=== PATIENT | male | born 1995 | race Asian ===

== ENCOUNTER 2020-07-23 10:20 | Emergency (ER) | payer OTHER, SELFPAY ==
[2020-07-23 10:26] VITALS: BP 105/70; PULSE 66; RESP 14; TEMP 36.6; O2SAT 97; BMI 15.2
--- NOTE | 2020-07-23 11:13 | PC.NURSE ---
pt had a vagal episode while vomiting earlier. he was medicated with Zofran SL
[2020-07-23 13:39] LABS: Basophils Absolute Auto 0.1 X10*3/uL (0.0-0.2); Basophils Percent Auto 0.4 % (0-2); Eosinophils Absolute Auto 0.2 X10*3/uL (0.0-0.4); Eosinophils Percent Auto 1.1 % (0-4); Hematocrit 48.5 % (42-52); Hemoglobin 15.7 g/dl (14.0-18.0); Imm Gran Abs Auto 0.07 X10*3/uL (0.00-0.03); Imm Gran Pct Auto 0.4 % (0.0-0.4); Lymphocytes Absolute Auto 0.8 X10*3/uL (1.2-4.9); Lymphocytes Percent Auto 4.3 % (20-40); MANUAL DIFF FLAG SCAN; Mean Corpuscular HGB Conc 32.4 g/dl (31.0-36.0); Mean Corpuscular Volume 89.6 fL (80-98); Monocytes Absolute Auto 0.6 X10*3/uL (0.1-1.2); Monocytes Percent Auto 3.2 % (2-11); Neutrophils Absolute Auto 17.8 X10*3/uL (2.0-8.3); Neutrophils Percent Auto 90.6 % (45-73); Platelet Count 301 X10*3/uL (160-400); Red Blood Count 5.41 X10*6/uL (4.60-5.80); Red Cell Distribution Width 12.1 % (11.0-16.0); SCAN SMEAR FLAG 1; White Blood Count 19.6 X10*3/uL (4.8-10.8)
[2020-07-23 13:44] LABS: Mean Platelet Volume 10.4 fL (9.4-12.4)
--- NOTE | 2020-07-23 14:03 | ED.NAVMDI ---
HPI - Nausea/Vomiting/Diarrhea General Chief complaint: Nausea/Vomiting/Diarrhea Stated complaint: VOMITING Time Seen by Provider: 07/23/20 13:53 Source: patient Mode of arrival: ambulatory Limitations: no limitations History of Present Illness HPI Narrative: Patient presents to ED for mid abdominal pain that began this morning with profuse episodes of vomiting. Patient states he has had this problem many times before in the past. Patient states he has been to many library technical assistant and cannot find a cause. Patient was informed his history of gastritis. Patient denies any history of marijuana use. Patient denies any dysuria, hematuria, flank pain, fever, or chills. MD elicited complaint: nausea, vomiting and abdominal pain Associated nausea: Yes Related Data Home Medications Medication Instructions Recorded Confirmed mirtazapine 15 mg tablet 15 mg PO DAILY 05/09/20 05/09/20 Previous Rx's Medication Instructions Recorded mirtazapine 15 mg tablet 15 mg PO BEDTIME 7 Days #7 tab 05/09/20 famotidine [Pepcid] 20 mg PO BID #20 tab 07/23/20 Allergies Allergy/AdvReac Type Severity Reaction Status Date / Time No Known Allergies Allergy Unverified 03/07/20 16:43 [No Known Allergies*] sertraline [Zoloft] AdvReac Unknown RESTLESSNES Verified 10/31/19 00:00 S Review of Systems Review of Systems: Yes all other systems are reviewed and are negative Constitutional: Constitutional: Reports as per HPI and Reports no additional constitutional complaints Eyes: Eyes: Reports as per HPI and Reports no additional eye complaints ENT: Reports system reviewed and no additional complaints, except as documented and Reports as per HPI Cardiovascular: Cardiovascular: Reports as per HPI and Reports no additional cardiovascular complaints Respiratory: Respiratory: Reports as per HPI and Reports no additional respiratory complaints Gastrointestinal: Gastrointestinal: Reports as per HPI, Reports no additional gastrointestinal complaints, Reports abdominal pain, Reports nausea and Reports vomiting Musculoskeletal: Musculoskeletal: Reports no additional musculoskeletal complaints and Reports as per HPI Neurologic: Reports system reviewed and no additional complaints, except as documented and Reports as per HPI Psychiatric: Psychiatric: Reports as per HPI [facility] Social History Social History Alcohol intake: never Smoking Status: Never smoker Use of substances other than those prescribed or required for medical reasons: No Advance Directives: Yes Advance Directives Information Provided: Yes Advance Directives on File: No Physical Exam Vital Signs: Vital Signs: Last Vital Signs Temp 98 F 07/23/20 16:00 Pulse 70 07/23/20 16:55 Resp 14 07/23/20 16:00 BP 107/65 07/23/20 16:55 Pulse Ox 100 07/23/20 16:00 Body Mass Index 15.2 Const: General: cooperative, healthy appearing, comfortable, no acute distress, well developed, alert, awake and Physically active Orientation/consciousness: patient oriented x3 HENMT: Head: Yes normal to inspection, Yes No palpable skull fracture present, Yes normocephalic, Yes atraumatic and Yes abrasion Eyes: General: appearance normal, both eyes and all related structures Neck: Neck: Yes normal visual inspection, Yes full ROM, Yes no lymphadenopathy, Yes no meningeal signs, Yes trachea midline, Yes supple and No tender Chest: Chest palpation & inspection: normal inspection of the chest and normal palpation of entire chest wall Resp: Effort & Inspection: normal respiratory effort and able to speak in complete sentences Auscultation: clear to auscultation bilaterally Cardio: Jugular venous distension: no JVD Heart sounds: S1 normal heart sound present and S2 normal heart sound present GI: Inspection: Yes normal to inspection Palpation (GI): Soft to palpation, not firm, Tenderness to palpation present (GI) (Mid gastric) in the epigastrum; not in the LLQ, not in the RLQ, not in the LUQ, not in the RUQ, not at McBurney's point, not periumbilically, not suprapubicly, Guzman's sign negative, obturator sign negative, psoas sign negative, with no rebound tenderness and Rovsing's sign negative, no guarding and not rigid : General: No CVA tenderness and Yes no CVA tenderness Back/Spine/Pelvis: Back: no CVA tenderness, No CVA tenderness and No back tenderness Skin: General skin exam: no rashes or lesions noted and elasticity normal Neuro: General: patient oriented x3, no meningeal signs and CN's II-XI intact bilaterally Cranial nerves: Yes CN's II-XII intact bilaterally Extrem: General: Yes normal to inspection and Yes full ROM Psych: Appearance: grossly normal, well kempt and not disheveled Course Course Course Narrative: [place] [id number]. Rest of labs are still pending. Will give Benadryl, Pepcid, Zofran, and fluids. Patient will be sent for abdominal CT scan was kidney function returns. Reevaluation(s) Reevaluation #1: Patient states abdominal pain resolved after recieving IV medication. CT scan came back normal with only exception of not being able to see the appendix. Abdomen re-examined and soft, benign, and non-tender. negative for any guzman sign, mcburney sign, rebound tenderness, rovigsn sign, psoas sign, or obturator sign. patient states this is chronic and has been seen by [facility] gastroentertologist. patiaent informed and educated on appendicitis. Patient informed that if patient worsens, or re-locate to right lower quadrant that he should return to the ED for early appendicitis. UTox positive for Benzos and opiates Time: 18:09 MDM - Nausea/Vomiting/Diarrhea MDM Narrative Medical decision making narrative: Abdominal pIN Lab Data Result diagrams: 07/23/20 13:10 07/23/20 13:10 Labs: Lab Results 07/23/20 07/23/20 07/23/20 Range/Units 13:10 13:10 16:54 WBC 19.6 H (4.8-10.8) X10*3/uL RBC 5.41 (4.60-5.80) X10*6/uL Hgb 15.7 (14.0-18.0) g/dl Hct 48.5 (42-52) % MCV 89.6 (80-98) fL MCH 29.0 (27.0-33.0) pg MCHC 32.4 (31.0-36.0) g/dl RDW 12.1 (11.0-16.0) % Plt Count 301 (160-400) X10*3/uL MPV 10.4 (9.4-12.4) fL Immature Gran % (Auto) 0.4 (0.0-0.4) % Neut % (Auto) 90.6 H (45-73) % Lymph % (Auto) 4.3 L (20-40) % [place] % (Auto) 3.2 (2-11) % Eos % (Auto) 1.1 (0-4) % Baso % (Auto) 0.4 (0-2) % Lymph # (Auto) 0.8 L (1.2-4.9) X10*3/uL [place] # (Auto) 0.6 (0.1-1.2) X10*3/uL Eos # (Auto) 0.2 (0.0-0.4) X10*3/uL Baso # (Auto) 0.1 (0.0-0.2) X10*3/uL Abs Immat Gran (auto) 0.07 H (0.00-0.03) X10*3/uL Absolute Neuts (auto) 17.8 H (2.0-8.3) X10*3/uL Absolute Nucleated RBC 0.000 (0.0-0.012) X10*3/uL Nucleated RBC % (auto) 0.0 (0.0-0.2) /100WBC Smear Tech's Comments VERIFIED Sodium 139 (135-145) mmol/L Potassium 4.4 (3.3-5.1) mmol/L Chloride 103 (96-108) mmol/L Carbon Dioxide 24 (22-29) mmol/L Anion Gap 16 (12-20) BUN 16 (9-16) mg/dL Creatinine 0.91 (0.5-1.4) mg/dL Estim Creat Clear Calc 79.6 Estimated GFR > 60 Random Glucose 151 H (60-115) mg/dL Calcium 9.8 (8.4-10.2) mg/dL Total Bilirubin 0.7 (0.0-1.0) mg/dL Direct Bilirubin 0.3 (0.0-0.5) mg/dL AST 24 (5-37) U/L ALT 15 (0-40) U/L Alkaline Phosphatase 98 (39-117) U/L Total Protein 7.8 (6.5-8.0) g/dL Albumin 4.5 (3.5-5.0) g/dL Lipase 34 (8-78) U/L Urine Color Urine Appearance Urine pH (5.0-8.0) Ur Specific [place] (1.005-1.025) Urine Protein (NEG-TRACE) MG/DL Urine Glucose (UA) (NEG) MG/DL Urine Ketones (NEG) MG/DL Urine Blood (NEG) Urine Nitrite (NEG) Ur Leukocyte Esterase (NEG) Urine Opiates Screen POSITIVE H (Not Detect) Ur Barbiturates Screen Not Detected (Not Detect) Ur Phencyclidine Scrn Not Detected (Not Detect) Ur Amphetamines Screen Not Detected (Not Detect) U Benzodiazepines Scrn POSITIVE H (Not Detect) Urine Cocaine Screen Not Detected (Not Detect) U Marijuana (THC) Screen Not Detected (Not Detect) 07/23/20 Range/Units 16:54 WBC (4.8-10.8) X10*3/uL RBC (4.60-5.80) X10*6/uL Hgb (14.0-18.0) g/dl Hct (42-52) % MCV (80-98) fL MCH (27.0-33.0) pg MCHC (31.0-36.0) g/dl RDW (11.0-16.0) % Plt Count (160-400) X10*3/uL MPV (9.4-12.4) fL Immature Gran % (Auto) (0.0-0.4) % Neut % (Auto) (45-73) % Lymph % (Auto) (20-40) % [place] % (Auto) (2-11) % Eos % (Auto) (0-4) % Baso % (Auto) (0-2) % Lymph # (Auto) (1.2-4.9) X10*3/uL [place] # (Auto) (0.1-1.2) X10*3/uL Eos # (Auto) (0.0-0.4) X10*3/uL Baso # (Auto) (0.0-0.2) X10*3/uL Abs Immat Gran (auto) (0.00-0.03) X10*3/uL Absolute Neuts (auto) (2.0-8.3) X10*3/uL Absolute Nucleated RBC (0.0-0.012) X10*3/uL Nucleated RBC % (auto) (0.0-0.2) /100WBC Smear Tech's Comments Sodium (135-145) mmol/L Potassium (3.3-5.1) mmol/L Chloride (96-108) mmol/L Carbon Dioxide (22-29) mmol/L Anion Gap (12-20) BUN (9-16) mg/dL Creatinine (0.5-1.4) mg/dL Estim Creat Clear Calc Estimated GFR Random Glucose (60-115) mg/dL Calcium (8.4-10.2) mg/dL Total Bilirubin (0.0-1.0) mg/dL Direct Bilirubin (0.0-0.5) mg/dL AST (5-37) U/L ALT (0-40) U/L Alkaline Phosphatase (39-117) U/L Total Protein (6.5-8.0) g/dL Albumin (3.5-5.0) g/dL Lipase (8-78) U/L Urine Color YELLOW Urine Appearance CLEAR Urine pH 5.5 (5.0-8.0) Ur Specific [place] <= 1.005 (1.005-1.025) Urine Protein NEG (NEG-TRACE) MG/DL Urine Glucose (UA) NEG (NEG) MG/DL Urine Ketones 15 (NEG) MG/DL Urine Blood NEG (NEG) Urine Nitrite NEG (NEG) Ur Leukocyte Esterase NEG (NEG) Urine Opiates Screen (Not Detect) Ur Barbiturates Screen (Not Detect) Ur Phencyclidine Scrn (Not Detect) Ur Amphetamines Screen (Not Detect) U Benzodiazepines Scrn (Not Detect) Urine Cocaine Screen (Not Detect) U Marijuana (THC) Screen (Not Detect) Discharge Plan Discharge Clinical Impression: Abdominal pain, GERD (gastroesophageal reflux disease) Patient Disposition: Home, Self-Care Instructions: Gastroesophageal Reflux Disease (ED), Abdominal Pain (ED) Additional Instructions: Return to the ED immediatley for worsening abdominal pain, RLQ pain, nausea, emesis, fever, chills, flank pain, dysuria, hematuria, weakness, or any other concerning symptoms. Prescriptions: New famotidine [Pepcid] 20 mg tablet 20 mg PO BID Qty: 20 RF: 0 No Action mirtazapine [Remeron] 15 mg tablet 15 mg PO DAILY RF: 0 mirtazapine 15 mg tablet 15 mg PO BEDTIME 7 Days Qty: 7 RF: 0 Referrals: Dhaval Blake FNP-NOLAN [Primary Care Provider] - 2 days (CHronic abdominal pain. GERD) Tip Martines [Physician] - 2 days (Chronic abdominal pain exacerbation. May need endoscopy.) Interventions: ED Discharge Assessment Last Done: 07/23/20 18:16 Discharge Date/Time: 07/23/20 18:17 Print Language: Malaysian
[2020-07-23 14:05] LABS: Anion Gap 16 (12-20); Blood Urea Nitrogen 16 mg/dL (9-16); Calcium 9.8 mg/dL (8.4-10.2); Carbon Dioxide 24 mmol/L (22-29); Chloride 103 mmol/L (96-108); Creatinine Clr Calc Pharmacy 79.6; Estimated Glomerular Filt Rate > 60; Glucose Random 151 mg/dL (60-115); Potassium 4.4 mmol/L (3.3-5.1); Sodium 139 mmol/L (135-145)
--- NOTE | 2020-07-23 14:14 | CT_ITS ---
EXAMINATION: CT ABDOMEN AND PELVIS WITH CONTRAST CLINICAL INFORMATION: Mid abdominal pain. COMPARISON: None TECHNIQUE: Multidetector volumetric images were obtained from the superior aspect of the liver through the pubic symphysis following administration 85 mL of Omnipaque 350 intravenous contrast. Sagittal and coronal reformatted images were obtained on the technologist's workstation. Oral contrast: No This CT examination was performed using dose optimization techniques as appropriate, variously including the following: *Automated exposure control *Adjustment of mA and/or kV according to patient size (this includes techniques or standardized protocols for targeted exams where dose is matched to indication/reason for exam; i.e. extremities or head) *Use of iterative reconstruction technique DLP: 222 mGy-cm FINDINGS: LUNG BASES: There is minimal patchy opacity in lingula. The lung bases are clear. The heart size is normal. LIVER, GALLBLADDER, AND BILIARY TREE: The liver is normal in size, shape, and attenuation. No focal hepatic lesion or biliary ductal dilatation is present. The gallbladder is unremarkable with no evidence of radiopaque gallstones, gallbladder wall thickening, or obvious pericholecystic inflammatory changes. PANCREAS: Unremarkable. SPLEEN: Unremarkable. ADRENAL GLANDS: Unremarkable. KIDNEYS AND URETERS: The kidneys are normal in size, shape, and attenuation. No hydronephrosis, hydroureter, or calculi seen. No perinephric stranding. BLADDER: Unremarkable. GASTROINTESTINAL TRACT: There is scattered stool and gas seen throughout the colon without significant distention. The small bowel loops are normal caliber. Appendix is not visualized. There is no obstruction or inflammatory process seen. The stomach is nondistended. ABDOMINAL WALL: No significant hernia is appreciated. LYMPH NODES: Normal. VASCULAR: Unremarkable. PELVIC VISCERA: Unremarkable. OSSEOUS STRUCTURES: Unremarkable. CT/CT abdomen pelvis w con IMPRESSION: No acute intra-abdominal process seen. Appendix is not visualized. No inflammatory process, free air or free fluid seen in the abdomen.
[2020-07-23 14:17] LABS: Alanine Aminotransferase 15 U/L (0-40); Albumin Level 4.5 g/dL (3.5-5.0); Alkaline Phosphatase 98 U/L (39-117); Aspartate Amino Transferase 24 U/L (5-37); Bilirubin Direct 0.3 mg/dL (0.0-0.5); Bilirubin Total 0.7 mg/dL (0.0-1.0); Lipase 34 U/L (8-78); SLIDE REVIEW VERIFIED; Total Protein 7.8 g/dL (6.5-8.0)
[2020-07-23] MEDS: Famotidine/PF 20 MG/2 ML VIAL IVPUSH (14:22)
[2020-07-23] MEDS: diphenhydrAMINE HCL 50 MG/ML VIAL IVPUSH (14:22)
[2020-07-23] MEDS: ondansetron HCL 4 MG/2 ML VIAL IVPUSH (14:22)
[2020-07-23] MEDS: 0.9 % Sodium Chloride 1,000 ML 999 ML IV (14:22)
[2020-07-23 14:50] VITALS: BP 102/66; PULSE 62; RESP 18; O2SAT 99
[2020-07-23 16:00] VITALS: BP 102/52; PULSE 66; RESP 14; TEMP 36.6; O2SAT 100
[2020-07-23 16:55] VITALS: BP 107/65; PULSE 70
[2020-07-23 17:24] LABS: Glucose Urine UA NEG (NEG); Leukocyte Esterase Urine NEG (NEG); Nitrite Urine NEG (NEG); PH 5.5 (5.0-8.0); Specific Gravity - Urine <= 1.005 (1.005-1.025); Urine Blood NEG (NEG); Urine Ketones 15 MG/DL (NEG); Urine Protein NEG (NEG-TRACE)
[2020-07-23 17:26] LABS: Amphetamine Screen Urine Not Detected (Not Detect); Barbiturates, Urine Not Detected (Not Detect); Benzodiazepines Screen Urine POSITIVE (Not Detect); Cannabinoid Screen Urine Not Detected (Not Detect); Cocaine Screen Urine Not Detected (Not Detect); Opiate Screen Urine POSITIVE (Not Detect); Phencyclidine Screen Urine Not Detected (Not Detect)
[2020-07-23 17:39] LABS: Appearance Urine CLEAR; Color Urine YELLOW
== END 2020-07-23 18:17 | disposition home or self-care (01) ==
PROVIDERS: Physician Assistant; Emergency Provider Emergency Medicine; PCP Nurse Practitioner Family
DX: K21.9 Gastro-esophageal reflux disease without esophagitis (principal); R10.9 Unspecified abdominal pain
CPT/HCPCS: 36415; 74177; 80048; 80076; 80307; 81003; 83690; 85025; 96361; 96374; 96375; 99284; J1200; J2405

== ENCOUNTER 2020-09-05 20:21 | Emergency (ER) | payer MEDICARE, MEDICAID, SELFPAY ==
[2020-09-05 20:33] VITALS: BP 106/72; PULSE 91; RESP 16; TEMP 36.8; O2SAT 98; BMI 16.4
[2020-09-05 21:05] LABS: MANUAL DIFF FLAG NO
[2020-09-05 21:07] LABS: Basophils Percent Auto 0.3 % (0-2); Eosinophils Absolute Auto 0.4 X10*3/uL (0.0-0.4); Eosinophils Percent Auto 5.4 % (0-4); Hematocrit 39.7 % (42-52); Hemoglobin 12.7 g/dl (14.0-18.0); Imm Gran Abs Auto 0.01 X10*3/uL (0.00-0.03); Imm Gran Pct Auto 0.1 % (0.0-0.4); Lymphocytes Absolute Auto 1.4 X10*3/uL (1.2-4.9); Lymphocytes Percent Auto 20.6 % (20-40); Mean Corpuscular Hemoglobin 28.8 pg (27.0-33.0); Mean Platelet Volume 9.8 fL (9.4-12.4); Monocytes Absolute Auto 0.4 X10*3/uL (0.1-1.2); Monocytes Percent Auto 6.1 % (2-11); Neutrophils Absolute Auto 4.5 X10*3/uL (2.0-8.3); Neutrophils Percent Auto 67.5 % (45-73); Platelet Count 234 X10*3/uL (160-400); Red Blood Count 4.41 X10*6/uL (4.60-5.80); Red Cell Distribution Width 12.3 % (11.0-16.0); White Blood Count 6.7 X10*3/uL (4.8-10.8)
[2020-09-05 21:33] LABS: Alanine Aminotransferase 7 U/L (0-40); Alkaline Phosphatase 74 U/L (39-117); Anion Gap 12 (12-20); Aspartate Amino Transferase 11 U/L (5-37); Bilirubin Direct 0.2 mg/dL (0.0-0.5); Bilirubin Total 0.5 mg/dL (0.0-1.0); Blood Urea Nitrogen 13 mg/dL (9-16); Calcium 8.3 mg/dL (8.4-10.2); Carbon Dioxide 25 mmol/L (22-29); Chloride 107 mmol/L (96-108); Creatinine Clr Calc Pharmacy 85.4; Estimated Glomerular Filt Rate > 60; Glucose Random 104 mg/dL (60-115); Potassium 3.5 mmol/L (3.3-5.1); Sodium 140 mmol/L (135-145); Total Protein 6.7 g/dL (6.5-8.0)
[2020-09-05 21:47] LABS: Lipase 89 U/L (8-78)
--- NOTE | 2020-09-05 22:52 | ED.DIZZY ---
HPI - Dizziness General Chief Complaint: Dizziness Stated Complaint: dehydration Time Seen by Provider: 09/05/20 22:36 History of Present Illness HPI Narrative: Patient is a 25-year-old male presents today with having generalized malaise weakness. Patient has been having gastric motility issue for the last 10 years. No coughing or congestion or upper respiratory symptoms. Positive decreased p.o. intake. The patient drinks less than 8 last he feels weak. He presented back to the emergency department. He also has a history of restless leg. Patient from home otherwise is compliant with his medication. It had multiple workups in the past for this. Has been seen by GI specialist for the same thing. Patient states usually after IV fluid he feels better Related Data Home Medications Medication Instructions Recorded Confirmed mirtazapine 15 mg tablet 15 mg PO DAILY 05/09/20 05/09/20 Previous Rx's Medication Instructions Recorded mirtazapine 15 mg tablet 15 mg PO BEDTIME 7 Days #7 tab 05/09/20 famotidine [Pepcid] 20 mg PO BID #20 tab 07/23/20 albuterol sulfate 90 mcg/actuation 2 puff INHALATION Q6H PRN 30 Days 07/25/20 aerosol inhaler #8.5 g fluoxetine 20 mg capsule 20 mg PO DAILY #30 cap 08/07/20 Allergies Allergy/AdvReac Type Severity Reaction Status Date / Time No Known Allergies Allergy Verified 09/05/20 20:33 [No Known Allergies*] sertraline [Zoloft] AdvReac Unknown RESTLESSNES Verified 10/31/19 00:00 S Review of Systems Review of Systems: Constitutional: No Weight loss, No Fever, No Chills, No Night Sweats, positive Fatigue, No Malaise ENT/Mouth: No Hearing loss, No Ear Pain, No Nasal Congestion, No Sinus Pain, No Hoarseness, No sore throat, No Rhinorrhea, No Swallowing Difficulty Eyes: No Eye Pain, No Swelling, No Redness, No Foreign Body, No Discharge, No Vision Changes Cardiovascular: No Chest Pain, No SOB, No Dyspnea on Exertion, No Orthopnea, No Edema, No Palpitations Respiratory: No Cough, No Sputum, No Wheezing, No Smoke Exposure, No Dyspnea Gastrointestinal: No Nausea, No Vomiting, No Diarrhea, No Constipation, No abdominal Pain, No Hematochezia, No Melena Genitourinary: no irregular bleeding, No Dysuria, No Urinary Frequency, No Hematuria, No Urinary Incontinence, No Urgency, No Flank Pain, No Urinary Flow Changes, No Hesitancy Musculoskeletal: No joint pain, No Myalgias, No Joint Swelling Skin: No Skin Lesions, No rash Neuro: Positive Weakness, No Numbness, No Paresthesias, No Loss of Consciousness, positive Dizziness, No Headache Psych: No Anxiety/Panic, No Depression, No SI/HI/AH/VH, No Social Issues, Heme/Lymph: No Bruising, No Bleeding,No Lymphadenopathy Endocrine: No Polyuria, No Polydipsia, No Temperature Intolerance [facility] Past Medical History Attestation statement: The following information was validated with the patient. Medical History Esophageal dilatation Motility disorder, esophageal Surgical History Hx of endoscopy Social History Social History Alcohol intake: never Smoking Status: Never smoker Advance Directives: No Advance Directives Information Provided: Yes Physical Exam Vital Signs: Vital Signs: Last Vital Signs Temp 98.3 F 09/05/20 20:33 Pulse 91 09/05/20 20:33 Resp 16 09/05/20 20:33 BP 106/72 09/05/20 20:33 Pulse Ox 98 09/05/20 20:33 Body Mass Index 16.4 Appearance: Alert. Oriented X3. No acute distress. Eyes: Pupils equal, round and reactive to light. ENT: Pharynx normal. Neck: Normal inspection. Neck supple. No lymph nodes noted. No crepitus CVS: Normal heart rate and rhythm. Pulses normal. Normal S1 and S2 Respiratory: No respiratory distress. Breath sounds normal. No Wheezing. No rales Abdomen: Soft and nontender. No rigidity. No distention. good BS x4 Skin: Skin warm and dry. Normal skin color. Normal skin turgor. Extremities: No lower extremity edema. Neurovascular intact to all extremities. No Lacerations. No Rash Neuro: Oriented X 3. No motor deficit. No sensory deficit. Moving all extermities. No slurred speech MDM - Dizziness MDM Narrative Medical decision making narrative: Well-appearing no acute distress. Patient's electrolytes are normal. History of similar symptoms in the past. We will go ahead and give IV fluid. Will discharge patient home close follow-up on an outpatient basis. Lab Data Result diagrams: 09/05/20 20:46 09/05/20 20:46 Labs: Lab Results 09/05/20 09/05/20 Range/Units 20:46 20:46 WBC 6.7 (4.8-10.8) X10*3/uL RBC 4.41 L (4.60-5.80) X10*6/uL Hgb 12.7 L (14.0-18.0) g/dl Hct 39.7 L (42-52) % MCV 90.0 (80-98) fL MCH 28.8 (27.0-33.0) pg MCHC 32.0 (31.0-36.0) g/dl RDW 12.3 (11.0-16.0) % Plt Count 234 (160-400) X10*3/uL MPV 9.8 (9.4-12.4) fL Immature Gran % (Auto) 0.1 (0.0-0.4) % Neut % (Auto) 67.5 (45-73) % Lymph % (Auto) 20.6 (20-40) % [place] % (Auto) 6.1 (2-11) % Eos % (Auto) 5.4 H (0-4) % Baso % (Auto) 0.3 (0-2) % Lymph # (Auto) 1.4 (1.2-4.9) X10*3/uL [place] # (Auto) 0.4 (0.1-1.2) X10*3/uL Eos # (Auto) 0.4 (0.0-0.4) X10*3/uL Baso # (Auto) 0.0 (0.0-0.2) X10*3/uL Abs Immat Gran (auto) 0.01 (0.00-0.03) X10*3/uL Absolute Neuts (auto) 4.5 (2.0-8.3) X10*3/uL Absolute Nucleated RBC 0.000 (0.0-0.012) X10*3/uL Nucleated RBC % (auto) 0.0 (0.0-0.2) /100WBC Sodium 140 (135-145) mmol/L Potassium 3.5 D (3.3-5.1) mmol/L Chloride 107 (96-108) mmol/L Carbon Dioxide 25 (22-29) mmol/L Anion Gap 12 (12-20) BUN 13 (9-16) mg/dL Creatinine 0.89 (0.5-1.4) mg/dL Estim Creat Clear Calc 85.4 Estimated GFR > 60 Random Glucose 104 (60-115) mg/dL Calcium 8.3 L D (8.4-10.2) mg/dL Total Bilirubin 0.5 (0.0-1.0) mg/dL Direct Bilirubin 0.2 (0.0-0.5) mg/dL AST 11 D (5-37) U/L ALT 7 (0-40) U/L Alkaline Phosphatase 74 D (39-117) U/L Total Protein 6.7 (6.5-8.0) g/dL Albumin 4.0 (3.5-5.0) g/dL Lipase 89 H (8-78) U/L Discharge Plan Discharge Clinical Impression: Dehydration Patient Disposition: Home, Self-Care Instructions: Dehydration (ED) Prescriptions: No Action albuterol sulfate [ProAir HFA] 90 mcg/actuation HFA aerosol inhaler 2 puff inhalation Q6H PRN (Reason: shortness of breath or wheezing) 30 Days Qty: 8.5 RF: 2 fluoxetine 20 mg capsule 20 mg PO DAILY Qty: 30 RF: 0 famotidine [Pepcid] 20 mg tablet 20 mg PO BID Qty: 20 RF: 0 mirtazapine [Remeron] 15 mg tablet 15 mg PO DAILY RF: 0 mirtazapine 15 mg tablet 15 mg PO BEDTIME 7 Days Qty: 7 RF: 0 Referrals: Dhaval Blkae, CERTIFIED [employer]PERATOR-[employer] [Primary Care Provider] - 2 days
[2020-09-05] MEDS: 0.9 % Sodium Chloride 1,000 ML 999 ML IV (22:54)
[2020-09-05] MEDS: ondansetron HCL 4 MG/2 ML VIAL IVPUSH (23:06)
[2020-09-06 00:29] VITALS: O2SAT 99
== END 2020-09-06 00:32 | disposition home or self-care (01) ==
PROVIDERS: Emergency Provider Emergency Medicine Emergency Medical Services; PCP Nurse Practitioner Family
DX: E86.0 Dehydration (principal); R53.81 Other malaise; R42 Dizziness and giddiness; Z79.899 Other long term (current) drug therapy
CPT/HCPCS: 36415; 80048; 80076; 83690; 85025; 96365; 96375; 99284; J2405

== ENCOUNTER 2020-11-14 16:21 | Emergency (ER) | payer MEDICARE, MEDICAID, SELFPAY ==
--- NOTE | ~2020-11-14 | XR_ITS ---
EXAMINATION: XR CHEST CLINICAL INFORMATION: Seizure versus syncope. COMPARISON: Chest radiograph dated 08/01/2019. TECHNIQUE: Frontal view of the chest was obtained. FINDINGS: No significant abnormality is noted involving the heart, lungs, mediastinum, bony thorax or soft tissues. A previously noted sclerotic focus within the proximal left humeral shaft is not redemonstrated. XR/XR chest 1V IMPRESSION: Unremarkable examination.
--- NOTE | ~2020-11-14 | CT_ITS ---
EXAMINATION: CT HEAD WITHOUT CONTRAST CLINICAL INFORMATION: Seizure versus syncope COMPARISON: Previous head CT and brain MRI from 2018 TECHNIQUE: Contiguous axial imaging was performed from the skull base to vertex without intravenous administration of contrast. This CT examination was performed using dose optimization techniques as appropriate, variously including the following: *Automated exposure control *Adjustment of mA and/or kV according to patient size (this includes techniques or standardized protocols for targeted exams where dose is matched to indication/reason for exam; i.e. extremities or head) *Use of iterative reconstruction technique DLP: 616 mGy-cm FINDINGS: There is no evidence of acute intracranial hemorrhage or territorial infarction. No abnormal mass effect or midline shift is seen. Smith to white matter differentiation is well preserved. No extra-axial fluid collections are identified. The ventricles are normal in size. There is no abnormal attenuation within the brain parenchyma. The osseous structures and soft tissues are normal. There is an air-fluid level in the left maxillary sinus. There is soft tissue opacification of the right maxillary and bilateral ethmoid sinuses. CT/CT head/brain wo con IMPRESSION: No acute intracranial findings. Sinusitis.
--- NOTE | 2020-11-14 16:28 | ECG_ITS ---
Test Reason : SEIZURE Blood Pressure : / mmHG Vent. Rate : 076 BPM Atrial Rate : 076 BPM P-R Int : 146 ms QRS Dur : 094 ms QT Int : 390 ms P-R-T Axes : 073 083 048 degrees QTc Int : 438 ms Normal sinus rhythm Normal ECG When compared with ECG of 03-DEC-2018 08:44, No significant change was found Referred By: Isabelle Wynn Electronically Signed By:LEOLA NAPIER
--- NOTE | 2020-11-14 16:30 | ED_ITS ---
HPI - Altered Mental Status General Stated Complaint: seizure, history of, no meds Time Seen by Provider: 11/14/20 16:28 Source: patient and EMS Mode of arrival: EMS Limitations: no limitations History of Present Illness HPI narrative: 25-year-old male presented for evaluation of possible seizure. 25-year-old male came in by ambulance after was witnessed by family of having seizure, patient do not remember the event. Patient now is awake, alert, oriented, able to answer all question, feeling at his normal baseline state of health. Patient declined any recent head injury, patient admitted to history of benzo a buse. Declined any IV drug abuse. History of visits for gastric motility issue causing vomiting and dehydration. Mother arrived to the emergency department providing more history, the patient had history of seizure in the past and today she witnessed seizure activity with postictal time. Related Data Home Medications Medication Instructions Recorded Confirmed mirtazapine 15 mg tablet 15 mg PO DAILY 05/09/20 05/09/20 Previous Rx's Medication Instructions Recorded mirtazapine 15 mg tablet 15 mg PO BEDTIME 7 Days #7 tab 05/09/20 famotidine [Pepcid] 20 mg PO BID #20 tab 07/23/20 albuterol sulfate 90 mcg/actuation 2 puff INHALATION Q6H PRN 30 Days 07/25/20 aerosol inhaler #8.5 g fluoxetine 20 mg capsule 20 mg PO DAILY #30 cap 08/07/20 cephalexin 500 mg capsule 500 mg PO QID 7 Days #28 cap 10/08/20 sulfamethoxazole 800 1 tab PO BID 7 Days #14 tab 10/08/20 mg-trimethoprim 160 mg tablet levetiracetam [Keppra] 500 mg PO BID #60 tab 11/14/20 Allergies Allergy/AdvReac Type Severity Reaction Status Date / Time No Known Allergies Allergy Verified 09/05/20 20:33 [No Known Allergies*] sertraline [Zoloft] AdvReac Unknown RESTLESSNES Verified 10/31/19 00:00 S Review of Systems Review of Systems: All other systems are reviewed and are negative Constitutional: Reports as per HPI and Reports no additional constitutional complaints Eyes: Reports as per HPI and Reports no additional eye complaints Reports system reviewed and no additional complaints, except as documented Cardiovascular: Reports as per HPI and Reports no additional cardiovascular complaints Respiratory: Reports as per HPI and Reports no additional respiratory complaints Gastrointestinal: Reports as per HPI and Reports no additional gastrointestinal complaints Genitourinary: Reports no additional female genitourinary complaints Musculoskeletal: Reports no additional musculoskeletal complaints Skin/Breast: Reports system reviewed and no additional complaints, except as docu Psychiatric: Reports no additional psychiatric complaints Endocrine: Reports no additional endocrine complaints Hematologic/Lymphatic: Reports no additional hematologic/lymphatic complaints Allergic/Immunologic: Reports no additional allergic/immunologic complaints Reports system reviewed and no additional complaints, except as documented and Reports Abnormal speech present [facility] Past Medical History Medical History Esophageal dilatation Motility disorder, esophageal Surgical History Hx of endoscopy Social History Social History Alcohol intake: never Advance Directives: No Advance Directives Information Provided: No Physical Exam Vital Signs: Vital Signs: Last Vital Signs Temp 97.9 F 11/14/20 16:37 Pulse 97 11/14/20 16:37 Resp 16 11/14/20 16:37 BP 116/70 11/14/20 16:37 Pulse Ox 98 11/14/20 16:37 Body Mass Index 16.4 Vital signs have been reviewed as appeared to be correct. Blood pressure normal. Heart rate normal. Respiration rate normal. Temperature normal. Oxygen saturation normal. Appearance: Alert. Oriented X3. No acute distress. Head: Normal external exam. Normocephalic. Atraumatic. No Del Cid signs noted. No raccoon eyes noted Eyes: PERRLA. EOMI. Conjunctiva and sclera normal. Eyelids normal. ENT: TM's Normal. Pharynx normal. Uvula midline. Moist mucous membranes. No trismus noted. No drooling noted. No muffled voice noted. Neck: Normal inspection. Neck supple. FROM. No adenopathy. Thyroid Normal. No meningeal signs. No neck mass noted. CVS: Normal heart rate and rhythm. Heart sound normal. No murmurs noted. Pulses normal throughout. Respiratory: No respiratory distress. Painless inspiration. Breath sounds normal. No wheezes/rales/rhonchi noted. Chest nontender. No accessory muscle usage noted or decreased air movement noted. Abdomen: Soft and nontender. Bowel sounds normal in all 4 quadrants. No distention noted. No organomegaly noted. No visible injury noted. Back: No CVA tenderness. Full range of motion noted. Skin: Skin warm and dry. Normal skin color. Normal skin turgor. No rashes/ lesions/lacerations noted. Extremities: No lower extremity edema. Extremities exhibit normal range of motion. Extremities nontender. Neuro: Oriented X 3. No motor deficit. No sensory deficit. Reflexes normal. Course Course Course Narrative: 25-year-old male history of seizure, history of benzo abuse presented with seizure witnessed by mother, patient had 3-4 episodes in the past not taking anti seizure medication, patient admitted to using benzos the last use was today. Negative workup for seizure today, start the patient on Keppra and follow-up with Neurology. MDM - Altered Mental Status Lab Data Attestation: I reviewed the patient's lab results. Result diagrams: 11/14/20 17:07 11/14/20 17:07 Labs: Lab Results 11/14/20 11/14/20 11/14/20 Range/Units 17:07 17:07 17:07 WBC 7.0 (4.8-10.8) X10*3/uL RBC 4.80 (4.60-5.80) X10*6/uL Hgb 13.6 L (14.0-18.0) g/dl Hct 42.7 (42-52) % MCV 89.0 (80-98) fL MCH 28.3 (27.0-33.0) pg MCHC 31.9 (31.0-36.0) g/dl RDW 12.4 (11.0-16.0) % Plt Count 287 (160-400) X10*3/uL MPV 10.2 (9.4-12.4) fL Immature Gran % (Auto) 0.1 (0.0-0.4) % Neut % (Auto) 71.4 (45-73) % Lymph % (Auto) 15.1 L (20-40) % Wythe % (Auto) 5.3 (2-11) % Eos % (Auto) 7.5 H (0-4) % Baso % (Auto) 0.6 (0-2) % Lymph # (Auto) 1.1 L (1.2-4.9) X10*3/uL Wythe # (Auto) 0.4 (0.1-1.2) X10*3/uL Eos # (Auto) 0.5 H (0.0-0.4) X10*3/uL Baso # (Auto) 0.0 (0.0-0.2) X10*3/uL Abs Immat Gran (auto) 0.01 (0.00-0.03) X10*3/uL Absolute Neuts (auto) 5.0 (2.0-8.3) X10*3/uL Absolute Nucleated RBC 0.000 (0.0-0.012) X10*3/uL Nucleated RBC % (auto) 0.0 (0.0-0.2) /100WBC Sodium 139 (135-145) mmol/L Potassium 4.5 D (3.3-5.1) mmol/L Chloride 104 (96-108) mmol/L Carbon Dioxide 20 L (22-29) mmol/L Anion Gap 20 (12-20) BUN 14 (9-16) mg/dL Creatinine 0.88 (0.5-1.4) mg/dL Estim Creat Clear Calc 86.4 Estimated GFR > 60 Random Glucose 91 (60-115) mg/dL Calcium 9.2 D (8.4-10.2) mg/dL Total Bilirubin 0.7 (0.0-1.0) mg/dL Direct Bilirubin 0.3 (0.0-0.5) mg/dL AST 22 D (5-37) U/L ALT 20 (0-40) U/L Alkaline Phosphatase 79 (39-117) U/L Troponin I High Sens 3.9 (<3.5-35.0) ng/L Total Protein 7.3 (6.5-8.0) g/dL Albumin 4.3 (3.5-5.0) g/dL Lipase 18 (8-78) U/L Imaging Data CT scan - head: Radiologist's impression: No acute intracranial findings. Chest x-ray: Radiologist's impression: Unremarkable examination. ECG Data ECG #1: Interpretation: Normal sinus rhythm at 76 beats per minute, normal axis, normal intervals, no ST-T changes. Discharge Plan Discharge Clinical Impression: Seizure, Substance abuse Patient Disposition: Home, Self-Care Instructions: Nonepileptic Seizures (ED) Prescriptions: New levetiracetam [Keppra] 500 mg tablet 500 mg PO BID Qty: 60 RF: 0 No Action albuterol sulfate [ProAir HFA] 90 mcg/actuation HFA aerosol inhaler 2 puff inhalation Q6H PRN (Reason: shortness of breath or wheezing) 30 Days Qty: 8.5 RF: 2 fluoxetine 20 mg capsule 20 mg PO DAILY Qty: 30 RF: 0 famotidine [Pepcid] 20 mg tablet 20 mg PO BID Qty: 20 RF: 0 mirtazapine [Remeron] 15 mg tablet 15 mg PO DAILY RF: 0 mirtazapine 15 mg tablet 15 mg PO BEDTIME 7 Days Qty: 7 RF: 0 cephalexin 500 mg capsule 500 mg PO QID 7 Days Qty: 28 RF: 0 sulfamethoxazole-trimethoprim [Bactrim DS] 800-160 mg tablet 1 tab PO BID 7 Days Qty: 14 RF: 0 Referrals: Joe Ochoa MD [Physician] - 2 days
[2020-11-14 16:37] VITALS: BP 116/70; PULSE 97; RESP 16; TEMP 36.6; O2SAT 98; BMI 16.4
[2020-11-14 17:13] LABS: MANUAL DIFF FLAG NO
[2020-11-14 17:15] LABS: Basophils Percent Auto 0.6 % (0-2); Eosinophils Absolute Auto 0.5 X10*3/uL (0.0-0.4); Eosinophils Percent Auto 7.5 % (0-4); Hematocrit 42.7 % (42-52); Hemoglobin 13.6 g/dl (14.0-18.0); Imm Gran Abs Auto 0.01 X10*3/uL (0.00-0.03); Imm Gran Pct Auto 0.1 % (0.0-0.4); Lymphocytes Absolute Auto 1.1 X10*3/uL (1.2-4.9); Lymphocytes Percent Auto 15.1 % (20-40); Mean Corpuscular HGB Conc 31.9 g/dl (31.0-36.0); Mean Corpuscular Hemoglobin 28.3 pg (27.0-33.0); Mean Platelet Volume 10.2 fL (9.4-12.4); Monocytes Absolute Auto 0.4 X10*3/uL (0.1-1.2); Monocytes Percent Auto 5.3 % (2-11); Neutrophils Percent Auto 71.4 % (45-73); Platelet Count 287 X10*3/uL (160-400); Red Cell Distribution Width 12.4 % (11.0-16.0)
[2020-11-14 17:52] LABS: Alanine Aminotransferase 20 U/L (0-40); Albumin Level 4.3 g/dL (3.5-5.0); Alkaline Phosphatase 79 U/L (39-117); Anion Gap 20 (12-20); Aspartate Amino Transferase 22 U/L (5-37); Bilirubin Direct 0.3 mg/dL (0.0-0.5); Bilirubin Total 0.7 mg/dL (0.0-1.0); Blood Urea Nitrogen 14 mg/dL (9-16); Calcium 9.2 mg/dL (8.4-10.2); Carbon Dioxide 20 mmol/L (22-29); Chloride 104 mmol/L (96-108); Creatinine Clr Calc Pharmacy 86.4; Estimated Glomerular Filt Rate > 60; Glucose Random 91 mg/dL (60-115); Lipase 18 U/L (8-78); Potassium 4.5 mmol/L (3.3-5.1); Sodium 139 mmol/L (135-145); Total Protein 7.3 g/dL (6.5-8.0); Troponin-I High Sensitivity 3.9 ng/L (<3.5-35.0)
[2020-11-14] MEDS: 0.9 % Sodium Chloride 1,000 ML 999 ML IVCONT (18:08)
[2020-11-14] MEDS: levETIRAcetam 500 MG TABLET PO (19:14)
[2020-11-14 20:20] LABS: Glucose Urine UA NEG (NEG); Leukocyte Esterase Urine NEG (NEG); Nitrite Urine NEG (NEG); Urine Blood 1+ (NEG); Urine Ketones NEG (NEG); Urine Protein TRACE MG/DL (NEG-TRACE)
[2020-11-14 20:21] LABS: Appearance Urine CLEAR; Color Urine YELLOW
[2020-11-14 20:30] LABS: Bacteria Urine TRACE /LPF; Calcium Carbonate Crystals Ur 1+ /LPF; Mucus Urine 1+ /LPF; Sperm Urine NOTED; Squamous Epithelial Cell Urine 2+ /LPF; WBC Urine 0 /HPF (0-4)
[2020-11-14 20:40] LABS: Amphetamine Screen Urine Not Detected (Not Detect); Barbiturates, Urine Not Detected (Not Detect); Benzodiazepines Screen Urine POSITIVE (Not Detect); Cannabinoid Screen Urine Not Detected (Not Detect); Cocaine Screen Urine Not Detected (Not Detect); Opiate Screen Urine POSITIVE (Not Detect); Phencyclidine Screen Urine Not Detected (Not Detect)
== END 2020-11-14 20:45 | disposition home or self-care (01) ==
PROVIDERS: Emergency Provider Emergency Medicine; PCP Nurse Practitioner Family
DX: R56.9 Unspecified convulsions (principal); F13.10 Sedative, hypnotic or anxiolytic abuse, uncomplicated; Z79.899 Other long term (current) drug therapy
CPT/HCPCS: 36415; 70450; 71045; 80048; 80076; 80307; 81001; 83690; 84484; 85025; 93005; 99283

== ENCOUNTER 2021-03-11 23:41 | Emergency (ER) | payer MEDICARE, MEDICAID, SELFPAY ==
--- NOTE | ~2021-03-11 | XR_ITS ---
EXAMINATION: XR HAND, RIGHT CLINICAL INFORMATION: Hand pain COMPARISON: None TECHNIQUE: PA, lateral, and oblique views of the right hand. FINDINGS: There is a fracture of the fifth metacarpal neck with volar angulation of the distal fragment. Remaining osseous structures appear intact. Articular alignment throughout the hand appears anatomic. XR/XR hand RT 2V IMPRESSION: Attenuated fracture of the neck of the fifth metacarpal.
[2021-03-12 00:59] VITALS: BP 98/54; PULSE 80; RESP 14; TEMP 36.4; O2SAT 99; BMI 17.2
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
[2021-03-12] MEDS: Lidocaine HCl 2 % MPF 5 ML VIAL INFILTRATI (03:30)
== END 2021-03-12 03:43 | disposition home or self-care (01) ==
PROVIDERS: Emergency Provider Internal Medicine; PCP Nurse Practitioner Family
DX: S62.91XA Unspecified fracture of right hand, initial encounter for closed fracture (principal); R22.31 Localized swelling, mass and lump, right upper limb; X58.XXXA Exposure to other specified factors, initial encounter; Y93.9 Activity, unspecified; Y92.9 Unspecified place or not applicable; Y99.9 Unspecified external cause status; Z79.899 Other long term (current) drug therapy
CPT/HCPCS: 29125; 73120; 99284

== ENCOUNTER → 2021-03-17 13:31 | Outpatient (BNVA) | payer MEDICARE, MEDICAID, SELFPAY | PROVIDERS: PCP Nurse Practitioner Family; Visit Provider Physician Assistant | DX: S62.308A Unspecified fracture of other metacarpal bone, initial encounter for closed fracture (principal) | CPT/HCPCS: 99202 ==

== ENCOUNTER 2021-03-18 10:46 | Day surgery (SDC) | payer MEDICARE, MEDICAID, SELFPAY ==
--- NOTE | ~2021-03-18 | FL_ITS ---
EXAMINATION: XR FLUOROSCOPY WITH IMAGES CLINICAL INFORMATION: Pinning of the right 5th metacarpal. COMPARISON: None. TECHNIQUE: Fluoroscopy performed by Dr. Mena Nevarez Fluoroscopy time: 14.8 seconds DAP: 8035.4 mGycm2 Images: 3 FINDINGS: The distal 5th metatarsal has been stabilized with a solitary pin with fracture fragment in alignment. No additional fracture seen. The soft tissues are normal. FL/FL guidance in OR IMPRESSION: Status post ORIF with a solitary pin traversing the 5th distal metatarsal fracture with fracture in alignment.
--- NOTE | 2021-03-18 14:28 | W.PM.OPN ---
Operative Note Operative Note Date of Service: 03/18/21 Narrative: Operative Note Narrative: Preop diagnosis: 1. Right 5th Metacarpal neck fracture Postop diagnosis: Same Procedure: 1. Right 5th Metacarpal fracture closed reduction percutaneous pinning 2. Ulnar nerve block Surgeon: Mena Nevarez MD Anesthesia: General Findings: Metacarpal fracture Implants: 0.062 K-wires times 1 Tourniquet time: None EBL: Minimal Specimen: None Drains: None Complications: None Disposition: Brought to the recovery room in stable condition Plan: Follow-up in 10-14 days for a wound check, postop radiographs and for placement in a short-arm cast or splint Anticipate K-wire removal in 4 weeks based on interval bony healing Educate the patient that full fracture healing anticipated in approximately 8-12 weeks. Indications: The patient is 26 years old with a right 5th metacarpal neck fracture with displacement . The risks and benefits of operative treatment, including but not limited to risk of damage to blood vessels, nerves, tendons, infection, recurrence, delayed or nonunion of fracture, persistent pain or numbness, incomplete resolution of preoperative symptoms, or need for further surgery were discussed with the patient and they wished to proceed with surgery. Procedure: Once consent was obtained patient was brought back to the operating suite and placed in the operating table in a supine position. . Perioperative antibiotics and general anesthesia was administered by the anesthesia team. A tourniquet was applied to the proximal aspect of the right upper extremity and the limb was prepped and draped in a standard surgical fashion. Tourniquet was not inflated during the case. The FluoroScan was used during the case to assist with our fracture reduction and placement of all implants. A closed reduction was performed on the patient's right 5th metacarpal neck fracture. I placed a single 0.062 K-wire retrograde through the head of the 5th metacarpal extending proximally across the fracture site to the base of the metacarpal. Fracture alignment was assessed for both angular and rotational malalignment. Once satisfied with our fracture reduction and implant placement, the K-wires were bent and cut short and pin caps applied. Final fluoroscopic images were then obtained. The wounds were copiously irrigated with normal saline. An ulnar nerve block was then performed by infiltrating about the ulnar nerve at the wrist with some 1% lidocaine with epinephrine for postop pain control. A Sterile dressing and short volar splint was applied. The patient appears to have tolerated the procedure well and with no complications. All digits were well vascularized at the conclusion of the case.
[2021-03-18 15:03] VITALS: BP 121/75; PULSE 98; RESP 16; TEMP 37.3; O2SAT 96; BMI 18.8
--- NOTE | 2021-03-18 16:24 | HO.ANESPROP2 ---
HPI - Anesthesia Eval Consult details Narrative: Right hand fracture PMFSH Active Problems Active Problems: All Active Problems (Updated 03/17/21 @ 14:01 by Baltazar Mueller PA-C) Closed fracture of 5th metacarpal (Acute) Finger fracture, right (Acute) Dermatitis (Acute) Facial abscess (Acute) Abscess (Acute) Depression (Acute) Past Medical History Medical History Esophageal dilatation Motility disorder, esophageal Family History Family history of problems with anesthesia: No Surgical History Surgical History Hx of endoscopy History of Problems with Anesthesia: No Social History Social History Alcohol intake: unknown Patient Tobacco Use Status: Tobacco use Unknown Advance Directives: No Advance Directives Information Provided: Yes Meds Allergies Allergy/AdvReac Type Severity Reaction Status Date / Time No Known Allergies Allergy Verified 09/05/20 20:33 [No Known Allergies*] sertraline [Zoloft] AdvReac Unknown RESTLESSNES Verified 10/31/19 00:00 S Home Medications Medication Instructions Recorded Confirmed Last Taken Type mirtazapine 15 mg tablet (Remeron) 15 mg PO DAILY 05/09/20 05/09/20 Unknown History Exam Exam Date and Time: March 18, 2021 1624 Height,Weight and Vital Signs: Height 5 ft 7 in Weight 54.431 kg Last Vital Signs Temp 99.2 F 03/18/21 15:03 Pulse 98 03/18/21 15:03 Resp 16 03/18/21 15:03 BP 121/75 03/18/21 15:03 Pulse Ox 96 03/18/21 15:03 Airway Mallampati Class: II TM Dist: >3cm Neck ROM: Full Loose/Missing/Broken Teeth: No Heart: [id number] Lungs: cta b/l Assessment and Plan Assessment Anesthesia Assessment: Anesthesia Plan Discussed and Chart Reviewed Final Anesthetic Review Family History of Problems with Anesthesia: No History of Problems with Anesthesia: No NPO: Yes ASA Class: II Final Preanesthetic Review: No Changes in Pt Med Stat, Meds/Allgs Chart Reviewed, Consent Obtained/Reviewed and Anes Risks/Benef Reviewed Patient Risk: Intermediate Procedure Risk: Low Assessment/Block/Sedation in SS: Assess/Block/Sedation-SS Anesthetic Plan Anesthetic Plan: GA and Agree w/ Assess. and Plan Disposition: Standard PACU
--- NOTE | 2021-03-18 16:46 | MHC.SHP ---
Pre-Procedural Eval Section A Date of Service: 03/18/21 The patient is an INPATIENT: No Changes since office visit: No Cold of Flu in the past 2 weeks, No New Medical Problems, No Changes in Medication and No Patient answered all questions The History & Physical has been completed within 30 days and I have reviewed it.: Yes Section B Chief Complaint: fx of 5th metacarpal bone Allergies: Allergies Allergy/AdvReac Type Severity Reaction Status Date / Time No Known Allergies Allergy Verified 09/05/20 20:33 [No Known Allergies*] sertraline [Zoloft] AdvReac Unknown RESTLESSNES Verified 10/31/19 00:00 S Plan I have reviewed the history and physical and performed a pertinent physical examination on my patient. No changes have occurred unless specified.
[2021-03-18 17:30] VITALS: BP 115/72; PULSE 96; RESP 16; TEMP 35.9; O2SAT 98
[2021-03-18 17:35] VITALS: BP 122/79; PULSE 89; RESP 16; O2SAT 96
[2021-03-18 17:40] VITALS: BP 109/66; PULSE 95; RESP 16; O2SAT 95
[2021-03-18 17:45] VITALS: BP 117/72; PULSE 85; RESP 18; TEMP 36.1; O2SAT 95
[2021-03-18 18:00] VITALS: BP 108/74; PULSE 80; RESP 18; O2SAT 95
== END 2021-03-18 18:37 | disposition home or self-care (01) ==
PROVIDERS: PCP Nurse Practitioner Family; Visit Provider Orthopaedic Surgery
PROC: (CPT 26615; principal; 2021-03-18 16:00)
DX: S62.336A Displaced fracture of neck of fifth metacarpal bone, right hand, initial encounter for closed fracture (principal); W51.XXXA Accidental striking against or bumped into by another person, initial encounter; Y93.9 Activity, unspecified; Y92.9 Unspecified place or not applicable; Y99.9 Unspecified external cause status
CPT/HCPCS: 26608; J0690; J2250; J2405; J3010

== ENCOUNTER 2021-04-02 12:48 | Outpatient (REF) | payer MEDICARE, MEDICAID, SELFPAY ==
--- NOTE | ~2021-04-02 | XR_ITS ---
EXAMINATION: XR HAND, RIGHT CLINICAL INFORMATION: Right hand pain. COMPARISON: Right hand radiographs dated 03/12/2021 TECHNIQUE: PA, lateral, and oblique views of the right hand. FINDINGS: Orthopedic wire through the 5th metacarpal fracture which appears in improved anatomic alignment when compared to the prior radiographs. No hardware fracture. No perihardware lucency to suggest loosening or infection. No abnormal soft tissue calcification. XR/XR hand RT min 3V IMPRESSION: Orthopedic wire across the distal 5th metacarpal fracture with improved anatomic alignment when compared to the prior radiographs.
== END 2021-04-02 12:49 | disposition home or self-care (01) ==
LOC: HO.HOSX 12:48
PROVIDERS: PCP Nurse Practitioner Family; Visit Provider Orthopaedic Surgery
DX: S62.306D Unspecified fracture of fifth metacarpal bone, right hand, subsequent encounter for fracture with routine healing (principal); S62.609D Fracture of unspecified phalanx of unspecified finger, subsequent encounter for fracture with routine healing
CPT/HCPCS: 73130; 99212

== ENCOUNTER 2021-04-09 08:08 | Outpatient (REF) | payer MEDICARE, MEDICAID, SELFPAY ==
--- NOTE | ~2021-04-09 | XR_ITS ---
EXAMINATION: XR HAND, RIGHT CLINICAL INFORMATION: Pain COMPARISON: 04/02/2021 TECHNIQUE: PA, lateral, and oblique views of the right hand. FINDINGS: Fracture of the right fifth metacarpal neck, intramedullary [place] remain in place unchanged from prior x-ray. Fracture has not healed yet. Heart rate remain in place unchanged. XR/XR hand RT min 3V IMPRESSION: ORIF hardware is stable, fracture of the neck of the fifth metacarpal unhealed yet..
== END 2021-04-09 08:09 | disposition home or self-care (01) ==
LOC: HO.HOSX 08:08
PROVIDERS: Visit Provider Orthopaedic Surgery
DX: S62.308D Unspecified fracture of other metacarpal bone, subsequent encounter for fracture with routine healing (principal)
CPT/HCPCS: 73130; 99212

== ENCOUNTER 2021-09-13 02:14 | Emergency (ER) | payer MEDICARE, MEDICAID, SELFPAY ==
[2021-09-13 02:23] VITALS: BP 105/68; PULSE 60; RESP 20; TEMP 36.4; O2SAT 100; BMI 17.2
[2021-09-13 02:42] LABS: Baso%MD 0.2 %; Eos%MD 7.1 %; Hematocrit 39.3 % (42.0-52.0); Hemoglobin 12.8 g/dl (14.0-18.0); IG%MD 0.3 %; Lymph%MD 19.6 %; Mean Corpuscular HGB Conc 32.6 g/dl (31.0-36.0); Mean Corpuscular Hemoglobin 28.6 pg (27.0-33.0); Mean Corpuscular Volume 87.9 fL (80.0-98.0); Mean Platelet Volume 9.5 fL (9.4-12.4); Mono%MD 5.4 %; Neut%MD 67.4 %; Platelet Count 334 X10*3/uL (160-400); Red Blood Count 4.47 X10*6/uL (4.60-5.80); Red Cell Distribution Width 12.4 % (11.0-16.0); White Blood Count 13.7 X10*3/uL (4.8-10.8)
--- NOTE | 2021-09-13 02:51 | PC.NURSE ---
Assumed care of pt Pt arrived via EMS Pt c/o generalized cramping abdominal pain and vomiting 2 hours [employer]. EMS started 1L NS. Pt denies taking anything for the pain. Pt denies taking any drugs or alcohol Upon arrival, pt intermittent and yelling out. Pt also intermittently drowsy.
[2021-09-13 02:59] LABS: COVID-19 Test Negative (Negative)
[2021-09-13 03:02] LABS: Alanine Aminotransferase 14 U/L (0-40); Albumin Level 4.3 g/dL (3.5-5.0); Alkaline Phosphatase 79 U/L (39-117); Anion Gap 16 (12-20); Aspartate Amino Transferase 18 U/L (5-37); Bilirubin Total 0.6 mg/dL (0.0-1.0); Blood Urea Nitrogen 21 mg/dL (9-16); Calcium 9.2 mg/dL (8.4-10.2); Carbon Dioxide 25 mmol/L (22-29); Chloride 103 mmol/L (96-108); Creatinine Clr Calc Pharmacy 73.1; Estimated Glomerular Filt Rate > 60; Glucose Random 103 mg/dL (60-115); Potassium 3.6 mmol/L (3.3-5.1); Sodium 140 mmol/L (135-145); Total Protein 7.2 g/dL (6.5-8.0)
--- NOTE | 2021-09-13 03:02 | ED.ABDPAIN ---
HPI - Abdominal Pain General Chief Complaint: Abdominal Pain Stated Complaint: nausea and vomiting Time Seen by Provider: 09/13/21 02:54 Source: patient and EMS Mode of arrival: EMS Limitations: no limitations History of Present Illness HPI narrative: Patient comes emergency room complaining of vomiting and diffuse abdominal cramping. Patient states that he has had this numerous times before, patient has been assessed by Gastroenterology in the past. Patient denies fever or chills. Patient states all of his symptoms started 2 hours prior to arrival. Related Data Home Medications Medication Instructions Recorded Confirmed mirtazapine 15 mg tablet (Remeron) 15 mg PO DAILY 05/09/20 05/09/20 Previous Rx's Medication Instructions Recorded mirtazapine 15 mg tablet 15 mg PO BEDTIME 7 Days #7 tab 05/09/20 famotidine 20 mg tablet (Pepcid) 20 mg PO BID #20 tab 07/23/20 fluoxetine 20 mg capsule 20 mg PO DAILY #30 cap 08/07/20 sulfamethoxazole 800 1 tab PO BID 7 Days #14 tab 10/08/20 mg-trimethoprim 160 mg tablet (Bactrim DS) levetiracetam 500 mg tablet 500 mg PO BID #60 tab 11/14/20 (Keppra) albuterol sulfate 90 mcg/actuation 2 puff INHALATION Q6H PRN 30 Days 12/05/20 aerosol inhaler #8.5 g tramadol 50 mg tablet 50 mg PO Q6H PRN #20 tab 03/12/21 Allergies Allergy/AdvReac Type Severity Reaction Status Date / Time No Known Allergies Allergy Verified 04/02/21 12:59 [No Known Allergies*] sertraline [Zoloft] AdvReac Unknown RESTLESSNES Verified 04/02/21 12:59 S Review of Systems Review of Systems Constitutional : No Weight loss, No Fever, No Chills, No Night Sweats, No Fatigue, No Malaise ENT/Mouth : No Hearing loss, No Ear Pain, No Nasal Congestion, No Sinus Pain, No Hoarseness, No sore throat, No Rhinorrhea, No Swallowing Difficulty Eyes: No Eye Pain, No Swelling, No Redness, No Foreign Body, No Discharge, No Vision Changes Cardiovascular : No Chest Pain, No SOB, No Dyspnea on Exertion, No Orthopnea, No Edema, No Palpitations Respiratory : No Cough, No Sputum, No Wheezing, No Smoke Exposure, No Dyspnea Gastrointestinal : Complaining of nausea vomiting, no diarrhea, diffuse abdominal cramping. Genitourinary : no irregular bleeding, No Dysuria, No Urinary Frequency, No Hematuria, No Urinary Incontinence, No Urgency, No Flank Pain, No Urinary Flow Changes, No Hesitancy Musculoskeletal : No joint pain, No Myalgias, No Joint Swelling Skin : No Skin Lesions, No rash Neuro : No Weakness, No Numbness, No Paresthesias, No Loss of Consciousness, No Dizziness, No Headache Psych : No Anxiety/Panic, No Depression, No SI/HI/AH/VH, No Social Issues, Heme/Lymph: No Bruising, No Bleeding,No Lymphadenopathy Endocrine : No Polyuria, No Polydipsia, No Temperature Intolerance [facility] Past Medical History Medical History Esophageal dilatation Motility disorder, esophageal Surgical History Hx of endoscopy Social History Social History Alcohol intake: unknown Patient Tobacco Use Status: Tobacco use Unknown Advance Directives: No Advance Directives Information Provided: No Current occupational status: employed Current occupation: rt hand /liquor store Physical Exam ED Vital Signs: Vital Signs - 24 hr 09/13/21 02:23 Temperature 97.6 F Pulse Rate 60 Respiratory Rate 20 Blood Pressure 105/68 Pulse Oximetry 100 BMI result Body Mass Index 17.2 Const Other: Appearance: Alert. Oriented X3. Very anxious Eyes: Pupils equal, round and reactive to light. ENT: Pharynx normal. Neck: Normal inspection. Neck supple. No lymph nodes noted. No crepitus CVS: Normal heart rate and rhythm. Pulses normal. Normal S1 and S2 Respiratory: No respiratory distress. Breath sounds normal. No Wheezing. No rales Abdomen: Soft, seems minimally tender, No rigidity. No distention. Skin: Skin warm , mildly diaphoretic Extremities: No lower extremity edema. No Lacerations. No Rash Neuro: Oriented X 3. No motor deficit. No sensory deficit. Moving all extremities. No slurred speech. CN 2 through 12 grossly intact Psych: Very anxious Course Course Course Narrative: After IV fluids, Zofran, Toradol, and Ativan, patient states that he feels much better. Patient states that he feels ready to be discharged. Patient does not have any urinary symptoms, urinalysis was ordered, patient states that he does not want to wait for urinalysis. MDM - Abdominal Pain Lab Data Result diagrams: 09/13/21 02:36 09/13/21 02:36 Labs: Lab Results 09/13/21 09/13/21 09/13/21 Range/Units 02:36 02:36 02:39 WBC 13.7 H (4.8-10.8) X10*3/uL RBC 4.47 L (4.60-5.80) X10*6/uL Hgb 12.8 L (14.0-18.0) g/dl Hct 39.3 L (42.0-52.0) % MCV 87.9 (80.0-98.0) fL MCH 28.6 (27.0-33.0) pg MCHC 32.6 (31.0-36.0) g/dl RDW 12.4 (11.0-16.0) % Plt Count 334 (160-400) X10*3/uL MPV 9.5 (9.4-12.4) fL Absolute Nucleated RBC 0.000 (0.0-0.012) X10*3/uL Nucleated RBC % (auto) 0.0 (0.0-0.2) /100WBC Neutrophils % (Manual) 69 (45-73) % Band Neutrophils % 2 L (3-5) % Lymphocytes % (Manual) 15 L (20-40) % Atypical Lymphs % (Man) 1 (0-6) % Monocytes % (Manual) 4 (2-11) % Eosinophils % (Manual) 7 H (0-4) % Basophils % (Manual) 2 (0-2) % Abs Neuts (Manual) 9.7 H (2.0-8.3) X10*3/uL Lymphocytes # (Manual) 2.1 (1.2-4.9) X10*3/uL Atyp Lymphs # (Manual) 0.1 x10*3/uL Monocytes # (Manual) 0.5 (0.1-1.2) X10*3/uL Eosinophils # (Manual) 1.0 H (0.0-0.4) X10*3/uL Basophils # (Manual) 0.3 H (0.0-0.2) X10*3/uL Smudge Cells PRESENT Platelet Estimate NORMAL (NORMAL) Plt Morphology Comment NORMAL RBC Morphology NORMAL Sodium 140 (135-145) mmol/L Potassium 3.6 (3.3-5.1) mmol/L Chloride 103 (96-108) mmol/L Carbon Dioxide 25 (22-29) mmol/L Anion Gap 16 (12-20) BUN 21 H (9-16) mg/dL Creatinine 1.08 (0.5-1.4) mg/dL Estim Creat Clear Calc 73.1 Estimated GFR > 60 Random Glucose 103 (60-115) mg/dL Lactic Acid (0.5-2.0) mmol/L Calcium 9.2 (8.4-10.2) mg/dL Magnesium 2.1 (1.6-2.6) mg/dL Total Bilirubin 0.6 (0.0-1.0) mg/dL Direct Bilirubin 0.2 (0.0-0.5) mg/dL AST 18 (5-37) U/L ALT 14 (0-40) U/L Alkaline Phosphatase 79 (39-117) U/L Total Protein 7.2 (6.5-8.0) g/dL Albumin 4.3 (3.5-5.0) g/dL Lipase 49 (8-78) U/L Ethyl Alcohol mg/dL COVID-19 (ED) Negative (Negative) COVID-19 Clin Com See Note 09/13/21 09/13/21 Range/Units 03:26 03:26 WBC (4.8-10.8) X10*3/uL RBC (4.60-5.80) X10*6/uL Hgb (14.0-18.0) g/dl Hct (42.0-52.0) % MCV (80.0-98.0) fL MCH (27.0-33.0) pg MCHC (31.0-36.0) g/dl RDW (11.0-16.0) % Plt Count (160-400) X10*3/uL MPV (9.4-12.4) fL Absolute Nucleated RBC (0.0-0.012) X10*3/uL Nucleated RBC % (auto) (0.0-0.2) /100WBC Neutrophils % (Manual) (45-73) % Band Neutrophils % (3-5) % Lymphocytes % (Manual) (20-40) % Atypical Lymphs % (Man) (0-6) % Monocytes % (Manual) (2-11) % Eosinophils % (Manual) (0-4) % Basophils % (Manual) (0-2) % Abs Neuts (Manual) (2.0-8.3) X10*3/uL Lymphocytes # (Manual) (1.2-4.9) X10*3/uL Atyp Lymphs # (Manual) x10*3/uL Monocytes # (Manual) (0.1-1.2) X10*3/uL Eosinophils # (Manual) (0.0-0.4) X10*3/uL Basophils # (Manual) (0.0-0.2) X10*3/uL Smudge Cells Platelet Estimate (NORMAL) Plt Morphology Comment RBC Morphology Sodium (135-145) mmol/L Potassium (3.3-5.1) mmol/L Chloride (96-108) mmol/L Carbon Dioxide (22-29) mmol/L Anion Gap (12-20) BUN (9-16) mg/dL Creatinine (0.5-1.4) mg/dL Estim Creat Clear Calc Estimated GFR Random Glucose (60-115) mg/dL Lactic Acid 1.7 (0.5-2.0) mmol/L Calcium (8.4-10.2) mg/dL Magnesium (1.6-2.6) mg/dL Total Bilirubin (0.0-1.0) mg/dL Direct Bilirubin (0.0-0.5) mg/dL AST (5-37) U/L ALT (0-40) U/L Alkaline Phosphatase (39-117) U/L Total Protein (6.5-8.0) g/dL Albumin (3.5-5.0) g/dL Lipase (8-78) U/L Ethyl Alcohol < 10 mg/dL COVID-19 (ED) (Negative) COVID-19 Clin Com Discharge Plan Discharge Clinical Impression: Abdominal pain, Nausea & vomiting Patient Disposition: Home, Self-Care Instructions: Abdominal Pain (ED) Additional Instructions: Please follow-up with your primary care physician tomorrow. If you have any worsening or new symptoms, please return to the emergency room or call 911 Prescriptions: No Action fluoxetine 20 mg capsule 20 mg PO DAILY Qty: 30 0RF albuterol sulfate 90 mcg/actuation HFA aerosol inhaler 2 puff inhalation Q6H PRN (Reason: for wheezing) 30 Days Qty: 8.5 2RF famotidine [Pepcid] 20 mg tablet 20 mg PO BID Qty: 20 0RF levetiracetam [Keppra] 500 mg tablet 500 mg PO BID Qty: 60 0RF tramadol 50 mg tablet 50 mg PO Q6H PRN (Reason: pain) Qty: 20 0RF mirtazapine [Remeron] 15 mg tablet 15 mg PO DAILY 0RF mirtazapine 15 mg tablet 15 mg PO BEDTIME 7 Days Qty: 7 0RF sulfamethoxazole-trimethoprim [Bactrim DS] 800-160 mg tablet 1 tab PO BID 7 Days Qty: 14 0RF
[2021-09-13] MEDS: LORazepam 2 MG/ML VIAL IVPUSH (03:12)
[2021-09-13] MEDS: ondansetron HCL 4 MG/2 ML VIAL IVPUSH (03:12)
[2021-09-13] MEDS: 0.9 % Sodium Chloride 1,000 ML 999 ML IVCONT (03:12)
[2021-09-13] MEDS: Famotidine/PF 20 MG/2 ML VIAL IVPUSH (03:12)
[2021-09-13 03:30] LABS: Bilirubin Direct 0.2 mg/dL (0.0-0.5); Lipase 49 U/L (8-78); Magnesium 2.1 mg/dL (1.6-2.6)
[2021-09-13 03:33] LABS: Atypical Lymph Absolute Manual 0.1 x10*3/uL; Atypical Lymphs Percent Manual 1 % (0-6); Band Neutrophils Percent 2 % (3-5); Basophils Abs Manual 0.3 X10*3/uL (0.0-0.2); Basophils Percent Manual 2 % (0-2); Eosinophils Percent Manual 7 % (0-4); Lymphocytes Absolute Manual 2.1 X10*3/uL (1.2-4.9); Lymphocytes Percent Manual 15 % (20-40); Monocytes Absolute Manual 0.5 X10*3/uL (0.1-1.2); Monocytes Percent Manual 4 % (2-11); Neutrophils Absolute Manual 9.7 X10*3/uL (2.0-8.3); Neutrophils Percent Manual 69 % (45-73); Platelet Estimate NORMAL (NORMAL); Platelet Morphology Comment NORMAL; RBC Morphology NORMAL; Smudge Cells PRESENT
[2021-09-13 03:43] LABS: Lactic Acid 1.7 mmol/L (0.5-2.0)
[2021-09-13 03:44] LABS: Ethanol < 10 mg/dL
[2021-09-13] MEDS: Ketorolac Tromethamine 30 MG/ML VIAL IVPUSH (03:53)
== END 2021-09-13 04:38 | disposition home or self-care (01) ==
PROVIDERS: Emergency Provider Emergency Medicine; PCP Nurse Practitioner Family
DX: R10.9 Unspecified abdominal pain (principal); Z20.822 Contact with and (suspected) exposure to COVID-19; R11.2 Nausea with vomiting, unspecified
CPT/HCPCS: 36415; 80053; 82077; 82248; 83605; 83690; 83735; 85007; 85027; 87635; 96361; 96374; 96375; 99283; 99284; J1885; J2060; J2405

== ENCOUNTER 2022-01-23 11:30 | Inpatient (IN) | payer MEDICARE, MEDICAID, SELFPAY ==
--- NOTE | 2022-01-23 | ECG_ITS ---
Test Reason : MEDICAL CLEARANCE Blood Pressure : / mmHG Vent. Rate : 070 BPM Atrial Rate : 070 BPM P-R Int : 166 ms QRS Dur : 100 ms QT Int : 346 ms P-R-T Axes : 065 078 020 degrees QTc Int : 373 ms Poor data quality, interpretation may be adversely affected Normal sinus rhythm Normal ECG When compared with ECG of 14-NOV-2020 17:22, QT has shortened Referred By: Humera Fernandez Electronically Signed By:AARON AVERY MD
--- NOTE | ~2022-01-23 | XR_ITS ---
EXAMINATION: XR ABDOMEN COMPLETE CLINICAL INDICATION: Mental status change. Rule out contraband in the rectum COMPARISON: Abdominal radiographs 11/02/2018 TECHNIQUE: AP and lateral of the abdomen. FINDINGS: No radiodense foreign body is identified in the abdomen or pelvis. There is a moderate amount of formed stool seen throughout the colon. No dilated bowel loops or bowel wall thickening. Visualized lung bases are grossly clear. No large volume free air on this supine exam. XR/XR abdomen min 2V IMPRESSION: No radiodense foreign body identified.
[2022-01-23 11:44] VITALS: BP 140/90; PULSE 99; O2SAT 98; BMI 17.2
[2022-01-23 12:00] VITALS: BP 106/55; PULSE 90; RESP 17; TEMP 36.9; O2SAT 95
--- NOTE | 2022-01-23 12:11 | ED.PSYCH ---
HPI - Psych General Chief Complaint: Psychiatric Symptoms Stated Complaint: SI, SEC 12 Time Seen by Provider: 01/23/22 12:07 Source: patient Mode of arrival: EMS Limitations: no limitations History of Present Illness HPI Narrative: Patient presents to the Emergency Department on a Section 12 from police department. For Section 12 patient's mother expresses concerns that patient has been stating multiple times that he does not want to live anymore. She reports that he has been caring knives around the house to protect himself from things that are not there. She reported a long history of heroin usage. Additionally stating that he has not been eating for the past 2 weeks. When asking the patient why he is here he states that his mother is concerned because he is losing too much weight, but states he has actually been gaining weight over the past month. He does report a history of opiate abuse, but states he has been on Suboxone for 3 years through [facility] [place], denies any recreational drug use or alcohol usage. Denies any suicidal or homicidal ideations. Denies any auditory or visual hallucinations. Denies suicidal ideations or homicidal ideations. Denies fevers, chills, chest pain, palpitations, shortness of breath, difficulty, nausea, vomiting abdominal pain, weakness. Related Data Home Medications Medication Instructions Recorded Confirmed buprenorphine 8 mg-naloxone 2 mg 2 strip sublingual DAILY 01/23/22 01/23/22 sublingual film (Suboxone) Allergies Allergy/AdvReac Type Severity Reaction Status Date / Time No Known Allergies Allergy Verified 11/11/21 07:23 [No Known Allergies*] sertraline [Zoloft] AdvReac Unknown RESTLESSNES Verified 11/11/21 07:23 S Review of Systems Review of Systems: Constitutional : No Fever, No Chills ENT/Mouth : No Ear Pain, No Nasal Congestion, No sore throat Eyes: No Eye Pain, No Swelling, No Redness Cardiovascular : No Chest Pain, No SOB Respiratory : No Cough, No Sputum, No Dyspnea Gastrointestinal : No Nausea, No Vomiting, No Diarrhea, No Hematochezia, No Melena Genitourinary : No Dysuria, No Urinary Frequency, No Hematuria Musculoskeletal : No Myalgias Skin : No Skin Lesions, No rash Neuro : No Weakness, No Numbness, No Paresthesias, No Dizziness, No Headache Psych : No Anxiety, no Depression, no SI/HI Heme/Lymph: No Lymphadenopathy Endocrine : No Polyuria, No Polydipsia [facility] Past Medical History Attestation statement: The following information was validated with the patient. Source: old records reviewed Medical History Esophageal dilatation Motility disorder, esophageal Surgical History Hx of endoscopy Social History Social History Alcohol intake: unknown Patient Tobacco Use Status: Tobacco use Unknown Use of substances other than those prescribed or required for medical reasons: Yes Substance Use Type: Crack/Cocaine Last Used Substance: Hours (ago) Advance Directives: No Advance Directives Information Provided: Yes Healthcare Proxy: No Guardian: No Current occupational status: employed Current occupation: rt hand /liquor store Physical Exam Vital Signs: Vital Signs: Last Vital Signs Temp 98.4 F 01/23/22 12:00 Pulse 90 01/23/22 12:00 Resp 17 01/23/22 12:00 BP 106/55 L 01/23/22 12:00 Pulse Ox 95 01/23/22 12:00 O2 Del Method 01/23/22 12:00 BMI result Body Mass Index 17.2 Vital signs have been reviewed as normal and appeared to be correct. Blood pressure normal.? Heart rate normal.? Respiration rate normal. Temperature normal.? Oxygen saturation normal. Appearance: Drowsy, appears to be under the influence of drugs, slow to maintain conversation but responding to questions appropriately. ?Oriented to person, place and time. Eyes: Pupils equal, round and reactive to light. 2 mm bilaterally. ? ENT: Pharynx normal.?? Neck: Normal inspection.? Neck supple.?? CVS: Heart sounds normal. Normal heart rate and rhythm.? Pulses normal.?? Respiratory: No respiratory distress.? Lung sounds clear to auscultation bilaterally?? Abdomen: Soft and non-tender. Normoactive bowel sounds. .?? Skin: Skin warm and dry.? Normal skin color.? ? Extremities: No lower extremity edema.? Neuro: Moves all extremities spontaneously. Sensation intact bilaterally. CN II-XII intact. No focal neuro deficits. Ambulates with normal steady gait. Course Course Course Narrative: Patient is a 27-year-old male with a past medical history of opiate abuse presenting to Emergency Department on a Section 12 from police department with mother there was reported concerns of hallucinations, weight loss, and suicidal ideations without any specific plan. Patient denies all of the above, stating he is here because his mother is concerned about his ?weight loss?. At the time of exam patient has no physical complaints. He does appear to be under the influence of recreational drugs given his drowsiness, and slow response to questioning. However he is oriented x3 and able to maintain a conversation and answer questions appropriately. He is in no apparent distress. Vital signs are stable. Will obtain labs, COVID-19 testing, drug abuse screen, and refer to [facility] for further evaluation. Reevaluation(s) Reevaluation #1: CBC reveals a normocytic anemia consistent with baseline. CMP is unremarkable. Toxicology positive for opiates, fentanyl, benzodiazepines, cocaine, and THC, ethanol negative. Patient placed in physician observation at this time as he will additional time to be evaluated by [facility], crisis team. Patient no apparent distress, cooperative with staff. Time: 13:37 Reevaluation #2: Patient evaluated by care team, will be referred for inpatient psychiatric admission. Time: 14:19 [facility] - Psych Medical Records Attestation: I reviewed the patient's medical records. Lab Data Attestation: I reviewed the patient's lab results. Result diagrams: 01/23/22 12:29 01/23/22 12:29 Labs: Lab Results 01/23/22 01/23/22 01/23/22 Range/Units 12:16 12:16 12:16 WBC (4.8-10.8) X10*3/uL RBC (4.60-5.80) X10*6/uL Hgb (14.0-18.0) g/dl Hct (42.0-52.0) % MCV (80.0-98.0) fL MCH (27.0-33.0) pg MCHC (31.0-36.0) g/dl RDW (11.0-16.0) % Plt Count (160-400) X10*3/uL MPV (9.4-12.4) fL Immature Gran % (Auto) (0.0-0.4) % Neut % (Auto) (45-73) % Lymph % (Auto) (20-40) % Wright % (Auto) (2-11) % Eos % (Auto) (0-4) % Baso % (Auto) (0-2) % Lymph # (Auto) (1.2-4.9) X10*3/uL Wright # (Auto) (0.1-1.2) X10*3/uL Eos # (Auto) (0.0-0.4) X10*3/uL Baso # (Auto) (0.0-0.2) X10*3/uL Abs Immat Gran (auto) (0.00-0.03) X10*3/uL Absolute Neuts (auto) (2.0-8.3) x10*3/uL Absolute Nucleated RBC (0.0-0.012) X10*3/uL Nucleated RBC % (auto) (0.0-0.2) /100WBC Sodium (135-145) mmol/L Potassium (3.3-5.1) mmol/L Chloride (96-108) mmol/L Carbon Dioxide (22-29) mmol/L Anion Gap (12-20) BUN (9-16) mg/dL Creatinine (0.5-1.4) mg/dL Estim Creat Clear Calc Estimated GFR Random Glucose (60-115) mg/dL Calcium (8.4-10.2) mg/dL Total Bilirubin (0.0-1.0) mg/dL AST (5-37) U/L ALT (0-40) U/L Alkaline Phosphatase (39-117) U/L Total Protein (6.5-8.0) g/dL Albumin (3.5-5.0) g/dL Urine Color YELLOW Urine Appearance HAZY Urine pH 6.0 (5.0-8.0) Ur Specific [place] >= 1.030 H (1.005-1.025) Urine Protein 1+ H (NEG-TRACE) MG/DL Urine Glucose (UA) NEG (NEG) MG/DL Urine Ketones 5 (NEG) MG/DL Urine Blood NEG (NEG) Urine Nitrite NEG (NEG) Ur Leukocyte Esterase NEG (NEG) Urine RBC 0-2 (0) /HPF Urine WBC 1-4 (0-4) /HPF Ur Squamous Epith Cells TRACE /LPF Urine Bacteria 1+ /LPF Urine Mucus 2+ /LPF Urine Sperm NOTED Urine Opiates Screen POSITIVE H (Not Detect) Urine Fentanyl Screen POSITIVE H (Not Detect) Ur Barbiturates Screen Not Detected (Not Detect) Ur Phencyclidine Scrn Not Detected (Not Detect) Ur Amphetamines Screen Not Detected (Not Detect) U Benzodiazepines Scrn POSITIVE H (Not Detect) Urine Cocaine Screen POSITIVE H (Not Detect) U Marijuana (THC) Screen POSITIVE H (Not Detect) Ethyl Alcohol mg/dL COVID-19 (ED) Negative (Negative) COVID-19 Clin Com See Note 01/23/22 01/23/22 Range/Units 12:29 12:29 WBC 6.1 (4.8-10.8) X10*3/uL RBC 4.26 L (4.60-5.80) X10*6/uL Hgb 11.5 L (14.0-18.0) g/dl Hct 37.3 L (42.0-52.0) % MCV 87.6 (80.0-98.0) fL MCH 27.0 (27.0-33.0) pg MCHC 30.8 L (31.0-36.0) g/dl RDW 13.0 (11.0-16.0) % Plt Count 309 (160-400) X10*3/uL MPV 9.9 (9.4-12.4) fL Immature Gran % (Auto) 0.2 (0.0-0.4) % Neut % (Auto) 53.3 (45-73) % Lymph % (Auto) 26.7 (20-40) % Wright % (Auto) 8.7 (2-11) % Eos % (Auto) 10.8 H (0-4) % Baso % (Auto) 0.3 (0-2) % Lymph # (Auto) 1.6 (1.2-4.9) X10*3/uL Wright # (Auto) 0.5 (0.1-1.2) X10*3/uL Eos # (Auto) 0.7 H (0.0-0.4) X10*3/uL Baso # (Auto) 0.0 (0.0-0.2) X10*3/uL Abs Immat Gran (auto) 0.01 (0.00-0.03) X10*3/uL Absolute Neuts (auto) 3.3 (2.0-8.3) x10*3/uL Absolute Nucleated RBC 0.000 (0.0-0.012) X10*3/uL Nucleated RBC % (auto) 0.0 (0.0-0.2) /100WBC Sodium 139 (135-145) mmol/L Potassium 4.8 D (3.3-5.1) mmol/L Chloride 103 (96-108) mmol/L Carbon Dioxide 28 (22-29) mmol/L Anion Gap 13 (12-20) BUN 15 (9-16) mg/dL Creatinine 1.38 (0.5-1.4) mg/dL Estim Creat Clear Calc 56.7 Estimated GFR > 60 Random Glucose 94 (60-115) mg/dL Calcium 8.7 (8.4-10.2) mg/dL Total Bilirubin 0.5 (0.0-1.0) mg/dL AST 21 (5-37) U/L ALT 15 (0-40) U/L Alkaline Phosphatase 95 D (39-117) U/L Total Protein 7.1 (6.5-8.0) g/dL Albumin 4.3 (3.5-5.0) g/dL Urine Color Urine Appearance Urine pH (5.0-8.0) Ur Specific [place] (1.005-1.025) Urine Protein (NEG-TRACE) MG/DL Urine Glucose (UA) (NEG) MG/DL Urine Ketones (NEG) MG/DL Urine Blood (NEG) Urine Nitrite (NEG) Ur Leukocyte Esterase (NEG) Urine RBC (0) /HPF Urine WBC (0-4) /HPF Ur Squamous Epith Cells /LPF Urine Bacteria /LPF Urine Mucus /LPF Urine Sperm Urine Opiates Screen (Not Detect) Urine Fentanyl Screen (Not Detect) Ur Barbiturates Screen (Not Detect) Ur Phencyclidine Scrn (Not Detect) Ur Amphetamines Screen (Not Detect) U Benzodiazepines Scrn (Not Detect) Urine Cocaine Screen (Not Detect) U Marijuana (THC) Screen (Not Detect) Ethyl Alcohol < 10 mg/dL COVID-19 (ED) (Negative) COVID-19 Clin Com Discharge Plan Discharge Clinical Impression: Suicidal ideation, Polysubstance abuse Patient Disposition: Still a Patient Interventions: Admission Worksheet (ED) Last Done: 01/23/22 22:22 Discharge Date/Time: 01/23/22 22:23
[2022-01-23 12:35] LABS: MANUAL DIFF FLAG NO
[2022-01-23 12:37] LABS: Basophils Percent Auto 0.3 % (0-2); Eosinophils Absolute Auto 0.7 X10*3/uL (0.0-0.4); Eosinophils Percent Auto 10.8 % (0-4); Hematocrit 37.3 % (42.0-52.0); Hemoglobin 11.5 g/dl (14.0-18.0); Imm Gran Abs Auto 0.01 X10*3/uL (0.00-0.03); Imm Gran Pct Auto 0.2 % (0.0-0.4); Lymphocytes Absolute Auto 1.6 X10*3/uL (1.2-4.9); Lymphocytes Percent Auto 26.7 % (20-40); Mean Corpuscular HGB Conc 30.8 g/dl (31.0-36.0); Mean Corpuscular Volume 87.6 fL (80.0-98.0); Mean Platelet Volume 9.9 fL (9.4-12.4); Monocytes Absolute Auto 0.5 X10*3/uL (0.1-1.2); Monocytes Percent Auto 8.7 % (2-11); Neutrophils Absolute Auto 3.3 x10*3/uL (2.0-8.3); Neutrophils Percent Auto 53.3 % (45-73); Platelet Count 309 X10*3/uL (160-400); Red Blood Count 4.26 X10*6/uL (4.60-5.80); White Blood Count 6.1 X10*3/uL (4.8-10.8)
[2022-01-23 12:40] LABS: Appearance Urine HAZY; Color Urine YELLOW; Glucose Urine UA NEG (NEG); Leukocyte Esterase Urine NEG (NEG); Nitrite Urine NEG (NEG); Specific Gravity - Urine >= 1.030 (1.005-1.025); UACC Culture Trigger NO; Urine Blood NEG (NEG); Urine Ketones 5 MG/DL (NEG); Urine Protein 1+ MG/DL (NEG-TRACE)
[2022-01-23 12:51] LABS: Bacteria Urine 1+ /LPF; RBC Urine 0-2 /HPF (0); Squamous Epithelial Cell Urine TRACE /LPF
[2022-01-23 12:52] LABS: Mucus Urine 2+ /LPF; Sperm Urine NOTED
[2022-01-23 12:53] LABS: COVID-19 Test Negative (Negative); IDNOW Serial# 16C4AD1C
[2022-01-23 13:00] LABS: Alanine Aminotransferase 15 U/L (0-40); Albumin Level 4.3 g/dL (3.5-5.0); Alkaline Phosphatase 95 U/L (39-117); Anion Gap 13 (12-20); Aspartate Amino Transferase 21 U/L (5-37); Bilirubin Total 0.5 mg/dL (0.0-1.0); Blood Urea Nitrogen 15 mg/dL (9-16); Calcium 8.7 mg/dL (8.4-10.2); Carbon Dioxide 28 mmol/L (22-29); Chloride 103 mmol/L (96-108); Creatinine Clr Calc Pharmacy 56.7; Estimated Glomerular Filt Rate > 60; Ethanol < 10 mg/dL; Glucose Random 94 mg/dL (60-115); Potassium 4.8 mmol/L (3.3-5.1); Sodium 139 mmol/L (135-145); Total Protein 7.1 g/dL (6.5-8.0)
[2022-01-23 13:00] LABS: Amphetamine Screen Urine Not Detected (Not Detect); Barbiturates, Urine Not Detected (Not Detect); Benzodiazepines Screen Urine POSITIVE (Not Detect); Cannabinoid Screen Urine POSITIVE (Not Detect); Cocaine Screen Urine POSITIVE (Not Detect); Fentanyl, urine POSITIVE (Not Detect); Opiate Screen Urine POSITIVE (Not Detect); Phencyclidine Screen Urine Not Detected (Not Detect)
[2022-01-23] MEDS: LORazepam 1 MG TABLET 2 MG PO (17:41)
[2022-01-23] MEDS: OLANZapine ODT 10 MG TAB.RAPDIS TRANSLINGU (17:42)
--- NOTE | 2022-01-23 18:05 | PC.NURSE ---
PT SECTIONED FROM HOME FOR SI. PT'S MOTHER CALLED 911 BECAUSE HE HELD A KNIFE TO HIS THROAT AND STATED THAT HE WANTED TO END IT. PT COOPERATIVE WITH CH[employer]-OVER. PT'S MOTHER IN TO VISIT AND MADE MULTIPLE REQUESTS FOR US TO GIVE HIM IV FLUIDS BECAUSE HE HASN'T EATEN IN 14 DAYS. PT YELLED AT AND PUSHED HIS MOTHER DURING VISIT. SECURITY INTERVENED, PT'S MOTHER WAS ESCORTED FROM THE UNIT. PT CALM COOPERATIVE AFTER MOTHER LEFT. NO OTHER ISSUES OBSERVED/REPORTED.
[2022-01-23 22:15] VITALS: BP 104/64; PULSE 88; RESP 16; TEMP 36.2; O2SAT 98
[2022-01-23] MEDS: Haloperidol Lactate 5 MG/ML VIAL IM (23:55)
[2022-01-23] MEDS: diphenhydrAMINE HCL 50 MG/ML VIAL 25 MG IM (23:55)
[2022-01-24 00:15] VITALS: BP 109/66; PULSE 85; RESP 16; TEMP 36.7; O2SAT 98
[2022-01-24] MEDS: LORazepam 1 MG TABLET 2 MG PO (00:15)
[2022-01-24 00:30] VITALS: RESP 12
[2022-01-24 00:45] VITALS: RESP 14
[2022-01-24 00:56] VITALS: BP 118/64; PULSE 67; RESP 12; TEMP 36.6; O2SAT 100
--- NOTE | 2022-01-24 01:50 | PM.EVENT ---
Event Note Date of Service: 01/24/22 Event Note: Medication restrained: Patient was agitated, patient was given Haldol, Ativan Patient is currently sleeping /snoring. Breathing at 12-14 respirations per minute
[2022-01-24 04:43] VITALS: RESP 12
--- NOTE | 2022-01-24 06:46 | PC.NURSE ---
Medication Restraint 01/23: At approx. 2330 pt began to get increasingly agitated, at first stating that if he was not released tomorrow he was going to cause problems, then stating that he wanted to be released tonight. Pt was walking in the hallway trying to open different unit doors, carrying his paper bag of belongings. He stated that he was going to punch someone in the face if he were not discharged. Multiple staff attempted to talk to patient to try and de-escalate him, however he was not receptive to any redirection or suggestions to relieve anxiety/agitation. Pt continued to walk in the hallway threatening to continue his behaviors until he gets what he wants , I'm going to mess this place up if I don't get what I want . Pt was asked if he would be willing to take ativan if order was obtained, at first he declined, then agitatedly replied you know what yea if you give me f 20 mg . When TW stated that it would not be 20 mg, he said then no , and proceeded to walk down the hallway towards his room continuing to make threats about wanting to be discharged. Security was called to unit to asssist. TW contacted on-call provider and obtained orders for IM medications to be given as a restraint. Pt received Haldol 5 mg IM and Benadryl 25 mg IM at 2355, and Ativan 2 mg PO at 0015. (Ativan was given orally due to shortage). Pt remained in his room, but was in and out of his bed for some time, at times agitated with having a staff member remaining with him. Pt fell asleep around 0130. Hospitalist, Dr. Barroso, was notified of need for consult at 0016; he evaluated the pt at 0145. Vitals remained stable, though pt declined at times due to agitation and inability to leave blood pressure cuff on his arm. RN residential supervisor notified of event. Pt remained asleep throughout the night. Pt received IM's without incident, no injuries or complaints noted.
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
[2022-01-24] MEDS: Buprenorphine/Naloxone 8/2 mg FILM 2 FILM SUBLINGUAL (15:42)
[2022-01-24 15:51] VITALS: BP 106/57; PULSE 71; RESP 14; TEMP 36.6; O2SAT 98
[2022-01-24 17:44] LABS: Cholesterol 154 mg/dL; HDL Cholesterol 31 mg/dL; LDL Cholesterol Calculated 112 mg/dl; Magnesium 2.1 mg/dL (1.6-2.6); Triglycerides 57 mg/dL
[2022-01-24 18:04] LABS: Estimated Average Glucose 91 mg/dL; Free T4 (Free Thyroxine) 0.98 ng/dL (0.71-1.85); Hemoglobin A1c % 4.8 %; Thyroid Stimulating Hormone 0.57 uIU/mL (0.32-4.0)
[2022-01-25 09:58] VITALS: BP 104/62; PULSE 92; RESP 16; TEMP 36.4; O2SAT 98
[2022-01-25] MEDS: Buprenorphine/Naloxone 8/2 mg FILM 2 FILM SUBLINGUAL (11:03)
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
[2022-01-25] MEDS: Lithium Carbonate ER 300 MG TABLET.ER PO (21:24)
[2022-01-25] MEDS: traZODone HCL 50 MG TABLET PO ×2 (21:45→23:57)
[2022-01-25] MEDS: hydrOXYzine HCL 25 MG TABLET PO (21:45)
[2022-01-26] MEDS: hydrOXYzine HCL 25 MG TABLET PO ×2 (02:14→18:05)
[2022-01-26] MEDS: Magnesium Hydrox/Alum Hydrox 30 ML ORAL.SUSP PO (02:14)
[2022-01-26 07:32] LABS: Folate 16.6 ng/mL (> or = 4.0); Vitamin B12 > 2000 pg/mL (200-900)
[2022-01-26 08:18] VITALS: BP 100/50; PULSE 77; RESP 18; TEMP 36.7; O2SAT 98
[2022-01-26] MEDS: Buprenorphine/Naloxone 8/2 mg FILM 2 FILM SUBLINGUAL (08:19)
[2022-01-26] MEDS: Omeprazole 20 MG CAPSULE.DR PO (15:15)
--- NOTE | 2022-01-26 16:31 | MHC.CLN ---
NUTRITION CONSULT FOR POOR INTAKE. DIET=REGULAR. ADDING ENSURE TID TO PROVIDE ADDITIONAL 10[address], [address] TO FOLLOW FOR INTAKE.
[2022-01-26 16:32] VITALS: BMI 17.2
--- NOTE | 2022-01-26 17:01 | HO.PSYCHPN ---
Subjective Subjective Date of Service: 01/26/22 Reason For Visit: Psychosis Interim History: disorganized, thought-blocking, derailment. pleasant and cooperative. interested in omep for GERD Sx. informed he will need to wait 5 days for lithium level to be drawn. per staff, pleasant, polite. not sleeping well. started lithium. Mental Status Exam Mental Status Exam Narrative: adequately dressed and kept. cooperative. no PMA/PMR. speech incr amount, nml loudness, nml rate, nml prosody. thoughts disorganized. derailment and thought blocking evident. affect constricted, normo-intense, non-labile. no SI/HI/AVH expressed. Diagnostics Vital Signs (24Hr): Vital Signs - 24 hr 01/26/22 08:18 Temperature 98.0 F Pulse Rate 77 Respiratory Rate 18 Blood Pressure 100/50 L Pulse Oximetry 98 Oxygen Delivery Method Room Air BMI result Body Mass Index 17.2 Labs Results: 01/23/22 12:29 01/23/22 12:29 Labs: Laboratory Results - last 48 hr 01/24/22 01/24/22 01/24/22 17:08 17:08 17:08 Estimat Average Glucose 91 Hemoglobin A1c % 4.8 Magnesium 2.1 Triglycerides 57 Cholesterol 154 LDL Cholesterol, Calc 112 HDL Cholesterol 31 Vitamin B12 > 2000 H Folate 16.6 TSH 0.57 Free T4 0.98 Medications Medications Current Medications Acetaminophen (Acetaminophen 325 Mg Tablet) 650 mg PO Q6H PRN PRN Reason: Headache/Pain Mild Scale (1-3) Al Hydroxide/Mg Hydroxide (Magnesium Hydrox/Alum Hydrox 30 Ml Oral.Susp) 30 ml PO Q6H PRN PRN Reason: Heartburn/Nausea Last Admin: 01/26/22 02:14 Dose: 30 ml Buprenorphine/Naloxone (Buprenorphine/Naloxone 8/2 Mg Film) 2 film SUBLINGUAL DAILY FATMATA Last Admin: 01/26/22 08:19 Dose: 2 film Hydroxyzine HCl (Hydroxyzine Hcl 25 Mg Tablet) 25 mg PO Q6H PRN PRN Reason: Anxiety Last Admin: 01/26/22 02:14 Dose: 25 mg [place] Carbonate ([place] Carbonate Er 300 Mg Tablet.Er) 600 mg PO BEDTIME FATMATA Magnesium Hydroxide (Milk Of Magnesia 30 Ml Oral.Susp) 30 ml PO DAILY PRN PRN Reason: Constipation Olanzapine (Olanzapine 5 Mg Tablet) 5 mg PO Q4H PRN PRN Reason: agitation, psychosis Omeprazole (Omeprazole 20 Mg Capsule.Dr) 20 mg PO DAILY@0630 FATMATA Last Admin: 01/26/22 15:15 Dose: 20 mg Trazodone HCl (Trazodone Hcl 50 Mg Tablet) 50 mg PO BEDTIME PRN PRN Reason: Insomnia Last Admin: 01/25/22 23:57 Dose: 50 mg Allergies Allergies Allergy/AdvReac Type Severity Reaction Status Date / Time No Known Allergies Allergy Verified 11/11/21 07:23 [No Known Allergies*] sertraline [Zoloft] AdvReac Unknown RESTLESSNES Verified 11/11/21 07:23 S Assessment & Plan Assessment & Plan (1) Polysubstance abuse: Status: Acute Code(s): F19.10 - Other psychoactive substance abuse, uncomplicated (2) Depression: Qualifiers: Depression Type: other depression Qualified Code(s): F32.89 - Other specified depressive episodes Status: Acute Code(s): F32.9 - Major depressive disorder, single episode, unspecified (3) Psychosis: Status: Acute Code(s): F29 - Unspecified psychosis not due to a substance or known physiological condition Plan - Admit to M3 on section 12 - Offer PRN medications - Collateral information - Watch for withdrawal from drugs. 01/25: suspect bipolar diathesis in addition to patient's drug use. Discussed mood stabilization with [place] which patient agreed to start. [place] ER 300 mg HS tonight and 600 mg HS tomorrow. 01/26: continue lithium I spent ___25___ minutes with the patient and/or on the patient floor today, greater than?50% of which was spent counseling/coordinating care. Reason for contiued inpatient stay Substantial Risk for: inability to function and rapid decompensation
[2022-01-26 19:59] VITALS: BP 106/55; PULSE 79; RESP 15; TEMP 36.7; O2SAT 100
[2022-01-26] MEDS: Lithium Carbonate ER 300 MG TABLET.ER 600 MG PO (20:25)
[2022-01-27 08:25] VITALS: BP 94/46; PULSE 71; RESP 16; TEMP 36.1; O2SAT 100
[2022-01-27] MEDS: Omeprazole 20 MG CAPSULE.DR PO (09:43)
[2022-01-27] MEDS: Buprenorphine/Naloxone 8/2 mg FILM 2 FILM SUBLINGUAL (09:43)
--- NOTE | 2022-01-27 11:00 | PC.NURSE ---
Patient reports he is non smoker, has not smoker for years .
[2022-01-27] MEDS: fluPHENAZine HCl 2.5 MG TABLET PO ×2 (13:34→21:14)
--- NOTE | 2022-01-27 17:29 | P.PNPSI_ITS ---
Subjective Subjective Date of Service: 01/27/22 Reason For Visit: Psychosis Interim History: MD suggests prolixin 2.5 BID to help with his thoughts, pt agrees. otherwise states he is doing well, trying to talk MD into discharging him. no reasonable argument that he should leave was produced by him. per staff, signed CV. restless sleep. says he's safe. c/o dizziness. anx 9, dep 7. talks to family a lot on the phone. hypotensive, unclear why. has been in good behavioral control since wednesday. Mental Status Exam Mental Status Exam Narrative: adequately dressed and kept. cooperative. no PMA/PMR. speech incr amount, nml loudness, nml rate, nml prosody. thoughts disorganized. derailment and thought blocking evident. affect constricted, normo-intense, non-labile. no SI/HI/AVH expressed. Diagnostics Vital Signs (24Hr): Vital Signs - 24 hr 01/26/22 19:59 01/27/22 08:25 Temperature 98.1 F 97.0 F Pulse Rate 79 71 Respiratory Rate 15 16 Blood Pressure 106/55 L 94/46 L Pulse Oximetry 100 100 Oxygen Delivery Method Room Air Room Air BMI result Body Mass Index 17.2 Labs Results: 01/23/22 12:29 01/23/22 12:29 Labs: Laboratory Results - last 48 hr 01/24/22 17:08 Vitamin B12 > 2000 H Folate 16.6 Medications Medications Current Medications Acetaminophen (Acetaminophen 325 Mg Tablet) 650 mg PO Q6H PRN PRN Reason: Headache/Pain Mild Scale (1-3) Al Hydroxide/Mg Hydroxide (Magnesium Hydrox/Alum Hydrox 30 Ml Oral.Susp) 30 ml PO Q6H PRN PRN Reason: Heartburn/Nausea Last Admin: 01/26/22 02:14 Dose: 30 ml Buprenorphine/Naloxone (Buprenorphine/Naloxone 8/2 Mg Film) 2 film SUBLINGUAL DAILY FATMATA Last Admin: 01/27/22 09:43 Dose: 2 film Fluphenazine HCl (Fluphenazine Hcl 2.5 Mg Tablet) 2.5 mg PO BID FATMATA Last Admin: 01/27/22 13:34 Dose: 2.5 mg Hydroxyzine HCl (Hydroxyzine Hcl 25 Mg Tablet) 25 mg PO Q6H PRN PRN Reason: Anxiety Last Admin: 01/26/22 18:05 Dose: 25 mg [place] Carbonate ([place] Carbonate Er 300 Mg Tablet.Er) 600 mg PO BEDTIME [facility] Last Admin: 01/26/22 20:25 Dose: 600 mg Magnesium Hydroxide (Milk Of Magnesia 30 Ml Oral.Susp) 30 ml PO DAILY PRN PRN Reason: Constipation Olanzapine (Olanzapine 5 Mg Tablet) 5 mg PO Q4H PRN PRN Reason: agitation, psychosis Omeprazole (Omeprazole 20 Mg Capsule.Dr) 20 mg PO DAILY@0630 [facility] Last Admin: 01/27/22 09:43 Dose: 20 mg Trazodone HCl (Trazodone Hcl 50 Mg Tablet) 50 mg PO BEDTIME PRN PRN Reason: Insomnia Last Admin: 01/25/22 23:57 Dose: 50 mg Allergies Allergies Allergy/AdvReac Type Severity Reaction Status Date / Time No Known Allergies Allergy Verified 11/11/21 07:23 [No Known Allergies*] sertraline [Zoloft] AdvReac Unknown RESTLESSNES Verified 11/11/21 07:23 S Assessment & Plan Assessment & Plan (1) Polysubstance abuse: Status: Acute Code(s): F19.10 - Other psychoactive substance abuse, uncomplicated (2) Depression: Qualifiers: Depression Type: other depression Qualified Code(s): F32.89 - Other specified depressive episodes Status: Acute Code(s): F32.9 - Major depressive disorder, single episode, unspecified (3) Psychosis: Status: Acute Code(s): F29 - Unspecified psychosis not due to a substance or known physiological condition Plan - Admit to M3 on section 12 - Offer PRN medications - Collateral information - Watch for withdrawal from drugs. 01/25: suspect bipolar diathesis in addition to patient's drug use. Discussed mood stabilization with [place] which patient agreed to start. [place] ER 300 mg HS tonight and 600 mg HS tomorrow. 01/26: continue lithium 01/27: start prolixin 2.5 BID for thought disorder I spent ___25___ minutes with the patient and/or on the patient floor today, greater than?50% of which was spent counseling/coordinating care. Reason for contiued inpatient stay Substantial Risk for: inability to function and rapid decompensation
--- NOTE | 2022-01-27 18:53 | PC.NURSE ---
Dr. Powers made aware of patients low BP in AM 94/46 HR 71. VS retaken 94/54 HR 89. Patient denies any symptoms.
[2022-01-27] MEDS: Lithium Carbonate ER 300 MG TABLET.ER 600 MG PO (21:13)
[2022-01-27 21:14] VITALS: BP 104/51; PULSE 78; RESP 18; TEMP 36.9; O2SAT 98
[2022-01-27] MEDS: hydrOXYzine HCL 25 MG TABLET PO (21:14)
[2022-01-28] MEDS: OLANZapine 5 MG TABLET PO (01:06)
[2022-01-28] MEDS: Omeprazole 20 MG CAPSULE.DR PO (06:49)
[2022-01-28 10:39] VITALS: BP 93/63; PULSE 61; RESP 17; TEMP 36.6; O2SAT 100
[2022-01-28 11:27] LABS: Amphetamine Screen Urine Not Detected (Not Detect); Barbiturates, Urine Not Detected (Not Detect); Benzodiazepines Screen Urine POSITIVE (Not Detect); Cannabinoid Screen Urine POSITIVE (Not Detect); Cocaine Screen Urine POSITIVE (Not Detect); Fentanyl, urine POSITIVE (Not Detect); Opiate Screen Urine Not Detected (Not Detect); Phencyclidine Screen Urine Not Detected (Not Detect)
--- NOTE | 2022-01-28 15:03 | MHC.CLN ---
F/U ATTEMPTED TO VISIT WITH PATIENT AFTER LUNCH TODAY. LUNCH TRAY NOT TOUCHED AND PATIENT ASLEEP. ATE 100% AT BREAKFAST TODAY. UNABLE TO COMPLETE NUTRITION FOCUSED PHYSICAL EXAM PATIENT ASLEEP UNDER COVERS. CONTINUE REGULAR DIET WITH ENSURE TID. SUPPLEMENT PROVIDES ADDITIONAL 1050 KCALS, [address] TO FOLLOW FOR INTAKE AND WEIGHT.
--- NOTE | 2022-01-28 17:00 | HO.PSYCHPN ---
Subjective Subjective Date of Service: 01/28/22 Reason For Visit: Psychosis Interim History: continues to appear somewhat sedated. calm and cooperative, no arguing about discharge today. c/o dizziness from remeron a couple of days ago, states it now seems to be subsiding. says he slept 24h last night because perhaps he had too much tramadol a couple days ago. per staff, memory and focus bad. c/o nightmares. eating better. flat, no emotion. disorganized. Mental Status Exam Mental Status Exam Narrative: adequately dressed and kept. cooperative. no PMA/PMR. speech incr amount, nml loudness, nml rate, nml prosody. thoughts disorganized, but less so than previously. less derailment and thought blocking evident. affect constricted, normo-intense, non-labile. no SI/HI/AVH expressed. Diagnostics Vital Signs (24Hr): Vital Signs - 24 hr 01/27/22 21:14 01/28/22 10:39 Temperature 98.4 F 97.9 F Pulse Rate 78 61 Respiratory Rate 18 17 Blood Pressure 104/51 L 93/63 Pulse Oximetry 98 100 Oxygen Delivery Method Room Air Room Air BMI result Body Mass Index 17.2 Labs Results: 01/23/22 12:29 01/23/22 12:29 Labs: Laboratory Results - last 48 hr 01/28/22 10:58 Urine Opiates Screen Not Detected Urine Fentanyl Screen POSITIVE H Ur Barbiturates Screen Not Detected Ur Phencyclidine Scrn Not Detected Ur Amphetamines Screen Not Detected U Benzodiazepines Scrn POSITIVE H Urine Cocaine Screen POSITIVE H U Marijuana (THC) Screen POSITIVE H Medications Medications Current Medications Acetaminophen (Acetaminophen 325 Mg Tablet) 650 mg PO Q6H PRN PRN Reason: Headache/Pain Mild Scale (1-3) Al Hydroxide/Mg Hydroxide (Magnesium Hydrox/Alum Hydrox 30 Ml Oral.Susp) 30 ml PO Q6H PRN PRN Reason: Heartburn/Nausea Last Admin: 01/26/22 02:14 Dose: 30 ml Buprenorphine/Naloxone (Buprenorphine/Naloxone 8/2 Mg Film) 2 film SUBLINGUAL DAILY [facility] Last Admin: 01/28/22 10:54 Dose: Not Given Fluphenazine HCl (Fluphenazine Hcl 2.5 Mg Tablet) 2.5 mg PO BID [place] Last Admin: 01/28/22 10:54 Dose: Not Given Hydroxyzine HCl (Hydroxyzine Hcl 25 Mg Tablet) 25 mg PO Q6H PRN PRN Reason: Anxiety Last Admin: 01/27/22 21:14 Dose: 25 mg [place] Carbonate ([place] Carbonate Er 300 Mg Tablet.Er) 600 mg PO BEDTIME [facility] Last Admin: 01/27/22 21:13 Dose: 600 mg Magnesium Hydroxide (Milk Of Magnesia 30 Ml Oral.Susp) 30 ml PO DAILY PRN PRN Reason: Constipation Olanzapine (Olanzapine 5 Mg Tablet) 5 mg PO Q4H PRN PRN Reason: agitation, psychosis Last Admin: 01/28/22 01:06 Dose: 5 mg Omeprazole (Omeprazole 20 Mg Capsule.Dr) 20 mg PO DAILY@0630 [facility] Last Admin: 01/28/22 06:49 Dose: 20 mg Trazodone HCl (Trazodone Hcl 50 Mg Tablet) 50 mg PO BEDTIME PRN PRN Reason: Insomnia Last Admin: 01/25/22 23:57 Dose: 50 mg Allergies Allergies Allergy/AdvReac Type Severity Reaction Status Date / Time No Known Allergies Allergy Verified 11/11/21 07:23 [No Known Allergies*] sertraline [Zoloft] AdvReac Unknown RESTLESSNES Verified 11/11/21 07:23 S Assessment & Plan Assessment & Plan (1) Polysubstance abuse: Status: Acute Code(s): F19.10 - Other psychoactive substance abuse, uncomplicated (2) Depression: Qualifiers: Depression Type: other depression Qualified Code(s): F32.89 - Other specified depressive episodes Status: Acute Code(s): F32.9 - Major depressive disorder, single episode, unspecified (3) Psychosis: Status: Acute Code(s): F29 - Unspecified psychosis not due to a substance or known physiological condition Plan - Admit to M3 on section 12 - Offer PRN medications - Collateral information - Watch for withdrawal from drugs. 01/25: suspect bipolar diathesis in addition to patient's drug use. Discussed mood stabilization with [place] which patient agreed to start. [place] ER 300 mg HS tonight and 600 mg HS tomorrow. 01/26: continue lithium 01/27: start prolixin 2.5 BID for thought disorder 01/28: more organized today. continues to appear sedated. utox sent again, same as that done 01/23 except for NEG for opiates (POS for fentanyl, cocaine, benzos, cannabis). fentanyl and cannabis would be expected to be positive for quite some time, potentially, as might benzos depending on the benzo used. one would expect cocaine, however, to have gone negative after 5 days. urine tramadol also requested after pt stated perhaps he took too much tramadol the other day and insisted it was tramadol when challenged by MD. I spent ___25___ minutes with the patient and/or on the patient floor today, greater than?50% of which was spent counseling/coordinating care. Reason for contiued inpatient stay Substantial Risk for: harm to self, inability to function and rapid decompensation
[2022-01-28 20:00] VITALS: BP 119/76; PULSE 79; RESP 18; TEMP 36.2; O2SAT 100
[2022-01-28] MEDS: fluPHENAZine HCl 2.5 MG TABLET PO (20:46)
[2022-01-28] MEDS: Benztropine Mesylate 0.5 MG TABLET PO (20:46)
[2022-01-28] MEDS: Lithium Carbonate ER 300 MG TABLET.ER 600 MG PO (20:46)
[2022-01-28] MEDS: LORazepam 0.5 MG TABLET PO (22:41)
[2022-01-29] MEDS: hydrOXYzine HCL 50 MG TABLET PO (00:59)
[2022-01-29] MEDS: Magnesium Hydrox/Alum Hydrox 30 ML ORAL.SUSP PO (01:43)
[2022-01-29] MEDS: hydrOXYzine HCL 25 MG TABLET PO ×2 (02:36→21:53)
[2022-01-29] MEDS: OLANZapine 5 MG TABLET PO (02:36)
--- NOTE | 2022-01-29 05:06 | PC.NURSE ---
Pt c/o restless legs. Cogentin 0.5 mg x1 given at 2045. Pt reported positive effect at first, however shortly after stated that he actually felt worse. Ativan 0.5 mg x1 ordered and administered and 2240. Pt received prn hydroxyzine 50 mg at 58 per request to help him sleep. Pt appeared to be less restless for some time though he had not slept yet, however later c/o his body feeling restless around 023, requested/received prn hydroxyzine 25 mg and zyprexa 5 mg at 0236. Pt went to bed and fell asleep around 0300.
[2022-01-29] MEDS: Omeprazole 20 MG CAPSULE.DR PO (06:19)
[2022-01-29 07:00] VITALS: BMI 17.8
[2022-01-29 08:15] VITALS: BP 110/80; PULSE 91; RESP 16; TEMP 36.6; O2SAT 96
[2022-01-29] MEDS: fluPHENAZine HCl 2.5 MG TABLET PO (09:42)
[2022-01-29] MEDS: Buprenorphine/Naloxone 8/2 mg FILM 2 FILM SUBLINGUAL (09:43)
--- NOTE | 2022-01-29 14:37 | HO.PSYCHPN ---
Subjective Subjective Date of Service: 01/29/22 Reason For Visit: Psychosis Interim History: calm, cooperative. appearing sedated beyond what would be expected from his medications regimen, unless dose of suboxone were wrong and provided too high. pt reports he is supposed to be on 16 mg suboxone, which is what he is being prescribed here. informs pt we will decrease his dosing to 8 mg as of tomorrow to see how he does, about which he is not happy, warning of potentially getting agitated if that is done. asking to be discharged so he can go to a rehab in [place]. minimizes his substance use, denies use of things that were in his urine upon admission. per staff, isolative, withdrawn. excessive daytime sleepiness. subdued. mumbled speech. some slurring, drooling. anx 2 dep 5. interacting with peers.sleeping better but still nightmares. to bed at 0300. c/o restless legs. got cogentin, which improved them. then they got worse, was given ativan and hydroxyzine and zyprexa and fell asleep. Mental Status Exam Mental Status Exam Narrative: adequately dressed and kept. cooperative. no PMA/PMR. speech incr amount, nml loudness, nml rate, nml prosody. thoughts disorganized, but less so than previously. less derailment and thought blocking evident. affect constricted, normo-intense, non-labile. no SI/HI/AVH expressed. Diagnostics Vital Signs (24Hr): Vital Signs - 24 hr 01/28/22 20:00 01/29/22 08:15 Temperature 97.2 F 97.9 F Pulse Rate 79 91 Respiratory Rate 18 16 Blood Pressure 119/76 110/80 Pulse Oximetry 100 96 Oxygen Delivery Method Room Air Room Air BMI result Body Mass Index 17.8 Labs Results: 01/23/22 12:29 01/23/22 12:29 Labs: Laboratory Results - last 48 hr 01/28/22 10:58 Urine Opiates Screen Not Detected Urine Fentanyl Screen POSITIVE H Ur Barbiturates Screen Not Detected Ur Phencyclidine Scrn Not Detected Ur Amphetamines Screen Not Detected U Benzodiazepines Scrn POSITIVE H Urine Cocaine Screen POSITIVE H U Marijuana (THC) Screen POSITIVE H Medications Medications Current Medications Acetaminophen (Acetaminophen 325 Mg Tablet) 650 mg PO Q6H PRN PRN Reason: Headache/Pain Mild Scale (1-3) Al Hydroxide/Mg Hydroxide (Magnesium Hydrox/Alum Hydrox 30 Ml Oral.Susp) 30 ml PO Q6H PRN PRN Reason: Heartburn/Nausea Last Admin: 01/29/22 01:43 Dose: 30 ml Buprenorphine/Naloxone (Buprenorphine/Naloxone 8/2 Mg Film) 1 film SUBLINGUAL DAILY [facility] Hydroxyzine HCl (Hydroxyzine Hcl 25 Mg Tablet) 25 mg PO Q6H PRN PRN Reason: Anxiety Last Admin: 01/29/22 02:36 Dose: 25 mg Hydroxyzine HCl (Hydroxyzine Hcl 50 Mg Tablet) 50 mg PO BEDTIME PRN PRN Reason: Sleep Last Admin: 01/29/22 00:59 Dose: 50 mg [place] Carbonate ([place] Carbonate Er 300 Mg Tablet.Er) 600 mg PO BEDTIME [place] Last Admin: 01/28/22 20:46 Dose: 600 mg Magnesium Hydroxide (Milk Of Magnesia 30 Ml Oral.Susp) 30 ml PO DAILY PRN PRN Reason: Constipation Olanzapine (Olanzapine 5 Mg Tablet) 5 mg PO Q4H PRN PRN Reason: agitation, psychosis Last Admin: 01/29/22 02:36 Dose: 5 mg Olanzapine (Olanzapine 2.5 Mg Tablet) 2.5 mg PO BID [facility] Omeprazole (Omeprazole 20 Mg Capsule.Dr) 20 mg PO DAILY@0630 [place] Last Admin: 01/29/22 06:19 Dose: 20 mg Allergies Allergies Allergy/AdvReac Type Severity Reaction Status Date / Time No Known Allergies Allergy Verified 11/11/21 07:23 [No Known Allergies*] sertraline [Zoloft] AdvReac Unknown RESTLESSNES Verified 11/11/21 07:23 S Assessment & Plan Assessment & Plan (1) Polysubstance abuse: Status: Acute Code(s): F19.10 - Other psychoactive substance abuse, uncomplicated (2) Depression: Qualifiers: Depression Type: other depression Qualified Code(s): F32.89 - Other specified depressive episodes Status: Acute Code(s): F32.9 - Major depressive disorder, single episode, unspecified (3) Psychosis: Status: Acute Code(s): F29 - Unspecified psychosis not due to a substance or known physiological condition Plan - Admit to M3 on section 12 - Offer PRN medications - Collateral information - Watch for withdrawal from drugs. 01/25: suspect bipolar diathesis in addition to patient's drug use. Discussed mood stabilization with [place] which patient agreed to start. [place] ER 300 mg HS tonight and 600 mg HS tomorrow. 01/26: continue lithium 01/27: start prolixin 2.5 BID for thought disorder 01/28: more organized today. continues to appear sedated. utox sent again, same as that done 01/23 except for NEG for opiates (POS for fentanyl, cocaine, benzos, cannabis). fentanyl and cannabis would be expected to be positive for quite some time, potentially, as might benzos depending on the benzo used. one would expect cocaine, however, to have gone negative after 5 days. urine tramadol also requested after pt stated perhaps he took too much tramadol the other day and insisted it was tramadol when challenged by MD. 01/29: similar presentation to yesterday. due to apparent akathisia last night, prolixin DCed and zyprexa started. cut suboxone from 16 mg daily to 8 mg daily as of tomorrow to see if there is any effect on his level of arousal. I spent ___25___ minutes with the patient and/or on the patient floor today, greater than?50% of which was spent counseling/coordinating care. Reason for contiued inpatient stay Substantial Risk for: harm to self, inability to function and rapid decompensation
[2022-01-29 16:44] LABS: Appearance Urine CLEAR; Color Urine YELLOW; Glucose Urine UA NEG (NEG); Leukocyte Esterase Urine TRACE (NEG); Nitrite Urine NEG (NEG); PH 7.5 (5.0-8.0); Specific Gravity - Urine 1.015 (1.005-1.025); Urine Blood NEG (NEG); Urine Ketones 5 MG/DL (NEG); Urine Protein NEG (NEG-TRACE)
[2022-01-29 17:01] LABS: RBC Urine 0-2 /HPF (0); Squamous Epithelial Cell Urine TRACE /LPF; WBC Urine 0-2 /HPF (0-4)
[2022-01-29 21:50] VITALS: BP 112/73; PULSE 80; RESP 16; TEMP 36.6; O2SAT 98
[2022-01-29] MEDS: Lithium Carbonate ER 300 MG TABLET.ER 600 MG PO (21:52)
[2022-01-29] MEDS: OLANZapine 2.5 MG TABLET PO (21:53)
[2022-01-30] MEDS: OLANZapine 2.5 MG TABLET PO ×2 (08:37→20:35)
[2022-01-30] MEDS: Omeprazole 20 MG CAPSULE.DR PO (08:37)
[2022-01-30 08:40] VITALS: BP 102/54; PULSE 65; RESP 18; TEMP 35; O2SAT 95
[2022-01-30] MEDS: Buprenorphine/Naloxone 8/2 mg FILM 1 FILM SUBLINGUAL (08:40)
[2022-01-30 09:36] LABS: MANUAL DIFF FLAG NO
[2022-01-30 09:47] LABS: Basophils Percent Auto 0.4 % (0-2); Eosinophils Absolute Auto 0.8 X10*3/uL (0.0-0.4); Eosinophils Percent Auto 10.7 % (0-4); Hematocrit 39.5 % (42.0-52.0); Hemoglobin 12.4 g/dl (14.0-18.0); Imm Gran Abs Auto 0.01 X10*3/uL (0.00-0.03); Imm Gran Pct Auto 0.1 % (0.0-0.4); Lymphocytes Percent Auto 26.7 % (20-40); Mean Corpuscular HGB Conc 31.4 g/dl (31.0-36.0); Mean Corpuscular Hemoglobin 26.8 pg (27.0-33.0); Mean Corpuscular Volume 85.3 fL (80.0-98.0); Mean Platelet Volume 10.6 fL (9.4-12.4); Monocytes Absolute Auto 0.7 X10*3/uL (0.1-1.2); Monocytes Percent Auto 8.9 % (2-11); Neutrophils Absolute Auto 3.9 x10*3/uL (2.0-8.3); Neutrophils Percent Auto 53.2 % (45-73); Platelet Count 271 X10*3/uL (160-400); Red Blood Count 4.63 X10*6/uL (4.60-5.80); Red Cell Distribution Width 13.3 % (11.0-16.0); White Blood Count 7.3 X10*3/uL (4.8-10.8)
[2022-01-30 10:00] LABS: Lithium 0.96 mmol/L (0.60-1.20)
[2022-01-30 10:06] LABS: Anion Gap 14 (12-20); Blood Urea Nitrogen 16 mg/dL (9-16); Calcium 9.5 mg/dL (8.4-10.2); Carbon Dioxide 30 mmol/L (22-29); Chloride 100 mmol/L (96-108); Creatinine Clr Calc Pharmacy 61.3; Estimated Glomerular Filt Rate > 60; Glucose Random 78 mg/dL (60-115); Sodium 139 mmol/L (135-145)
--- NOTE | 2022-01-30 14:12 | MHC.CLN ---
Addendum entered by Ale Juarez RD 01/30/22 14:16: FAVORABLE, MODERATE WEIGHT GAIN SINCE ADMISSION, +3.5%. Original Note: F/U VISITED WITH PATIENT IN COMMON AREA ON UNIT. REPORTED THAT HE IS EATING WELL AND LIKES SUPPLEMENT. CONTINUE REGULAR DIET WITH ENSURE TID. NO PHYSICAL SIGNS OF MALNUTRITION IN TEMPLES OR ORBITALS. PATIENT DRESSED IN LAYERS AND BODY APPEARS THIN. NO NEW NUTRITION INTERVENTIONS AT THIS TIME SINCE GOOD APPETITE/INTAKE REPORTED. RD TO FOLLOW WEEKLY.
--- NOTE | 2022-01-30 15:38 | HO.PSYCHPN ---
Subjective Subjective Date of Service: 01/30/22 Reason For Visit: Psychosis Interim History: calm, cooperative. appears less sedated and impaired than yesterday. states his anxiety and depression have improved substantially. it has now been 2 days since he has had anxiety and his first day without depression. amenable to continue current regimen. per staff, disorganized, confused, anxious, depressed, slurring, unsteady, napping, thought-blocking. crawling at [facility] into other [facility] rooms. Mental Status Exam Mental Status Exam Narrative: adequately dressed and kept. cooperative. no PMA/PMR. speech incr amount, nml loudness, nml rate, nml prosody. thoughts more organized. less derailment and thought blocking evident. affect flexible, normo-intense, non-labile. no SI/HI/AVH expressed. Diagnostics Vital Signs (24Hr): Vital Signs - 24 hr 01/29/22 21:50 01/30/22 08:40 Temperature 97.8 F 95 F L Pulse Rate 80 65 Respiratory Rate 16 18 Blood Pressure 112/73 102/54 L Pulse Oximetry 98 95 Oxygen Delivery Method Room Air Room Air BMI result Body Mass Index 17.8 Labs Results: 01/30/22 09:04 01/30/22 09:04 Labs: Laboratory Results - last 48 hr 01/29/22 01/30/22 01/30/22 16:20 09:04 09:04 WBC 7.3 RBC 4.63 Hgb 12.4 L Hct 39.5 L MCV 85.3 MCH 26.8 L MCHC 31.4 RDW 13.3 Plt Count 271 MPV 10.6 Immature Gran % (Auto) 0.1 Neut % (Auto) 53.2 Lymph % (Auto) 26.7 [place] % (Auto) 8.9 Eos % (Auto) 10.7 H Baso % (Auto) 0.4 Lymph # (Auto) 2.0 [place] # (Auto) 0.7 Eos # (Auto) 0.8 H Baso # (Auto) 0.0 Abs Immat Gran (auto) 0.01 Absolute Neuts (auto) 3.9 Absolute Nucleated RBC 0.000 Nucleated RBC % (auto) 0.0 Sodium 139 Potassium 5.0 Chloride 100 Carbon Dioxide 30 H Anion Gap 14 BUN 16 Creatinine 1.32 Estim Creat Clear Calc 61.3 Estimated GFR > 60 Random Glucose 78 Calcium 9.5 D Urine Color YELLOW Urine Appearance CLEAR Urine pH 7.5 Ur Specific [place] 1.015 Urine Protein NEG Urine Glucose (UA) NEG Urine Ketones 5 Urine Blood NEG Urine Nitrite NEG Ur Leukocyte Esterase TRACE H Urine RBC 0-2 Urine WBC 0-2 Ur Squamous Epith Cells TRACE Urine Bacteria NONE [place] 01/30/22 09:04 WBC RBC Hgb Hct MCV MCH MCHC RDW Plt Count MPV Immature Gran % (Auto) Neut % (Auto) Lymph % (Auto) [place] % (Auto) Eos % (Auto) Baso % (Auto) Lymph # (Auto) [place] # (Auto) Eos # (Auto) Baso # (Auto) Abs Immat Gran (auto) Absolute Neuts (auto) Absolute Nucleated RBC Nucleated RBC % (auto) Sodium Potassium Chloride Carbon Dioxide Anion Gap BUN Creatinine Estim Creat Clear Calc Estimated GFR Random Glucose Calcium Urine Color Urine Appearance Urine pH Ur Specific [place] Urine Protein Urine Glucose (UA) Urine Ketones Urine Blood Urine Nitrite Ur Leukocyte Esterase Urine RBC Urine WBC Ur Squamous Epith Cells Urine Bacteria [place] 0.96 Medications Medications Current Medications Acetaminophen (Acetaminophen 325 Mg Tablet) 650 mg PO Q6H PRN PRN Reason: Headache/Pain Mild Scale (1-3) Al Hydroxide/Mg Hydroxide (Magnesium Hydrox/Alum Hydrox 30 Ml Oral.Susp) 30 ml PO Q6H PRN PRN Reason: Heartburn/Nausea Last Admin: 01/29/22 01:43 Dose: 30 ml Buprenorphine/Naloxone (Buprenorphine/Naloxone 8/2 Mg Film) 1 film SUBLINGUAL DAILY [facility] Last Admin: 01/30/22 08:40 Dose: 1 film Hydroxyzine HCl (Hydroxyzine Hcl 25 Mg Tablet) 25 mg PO Q6H PRN PRN Reason: Anxiety Last Admin: 01/29/22 21:53 Dose: 25 mg Hydroxyzine HCl (Hydroxyzine Hcl 50 Mg Tablet) 50 mg PO BEDTIME PRN PRN Reason: Sleep Last Admin: 01/29/22 00:59 Dose: 50 mg [place] Carbonate ([place] Carbonate Er 300 Mg Tablet.Er) 600 mg PO BEDTIME [facility] Last Admin: 01/29/22 21:52 Dose: 600 mg Magn[place] Hydroxide (Milk Of Magnesia 30 Ml Oral.Susp) 30 ml PO DAILY PRN PRN Reason: Constipation Olanzapine (Olanzapine 5 Mg Tablet) 5 mg PO Q4H PRN PRN Reason: agitation, psychosis Last Admin: 01/29/22 02:36 Dose: 5 mg Olanzapine (Olanzapine 2.5 Mg Tablet) 2.5 mg PO BID [facility] Last Admin: 01/30/22 08:37 Dose: 2.5 mg Omeprazole (Omeprazole 20 Mg Capsule.) 20 mg PO DAILY@0630 [facility] Last Admin: 01/30/22 08:37 Dose: 20 mg Allergies Allergies Allergy/AdvReac Type Severity Reaction Status Date / Time sertraline [Zoloft] AdvReac Unknown RESTLESSNES Verified 11/11/21 07:23 S Assessment & Plan Assessment & Plan (1) Polysubstance abuse: Status: Acute Code(s): F19.10 - Other psychoactive substance abuse, uncomplicated (2) Depression: Qualifiers: Depression Type: other depression Qualified Code(s): F32.89 - Other specified depressive episodes Status: Acute Code(s): F32.9 - Major depressive disorder, single episode, unspecified (3) Psychosis: Status: Acute Code(s): F29 - Unspecified psychosis not due to a substance or known physiological condition Plan - Admit to M3 on section 12 - Offer PRN medications - Collateral information - Watch for withdrawal from drugs. 01/25: suspect bipolar diathesis in addition to patient's drug use. Discussed mood stabilization with [place] which patient agreed to start. [place] ER 300 mg HS tonight and 600 mg HS tomorrow. 01/26: continue lithium 01/27: start prolixin 2.5 BID for thought disorder 01/28: more organized today. continues to appear sedated. utox sent again, same as that done 01/23 except for NEG for opiates (POS for fentanyl, cocaine, benzos, cannabis). fentanyl and cannabis would be expected to be positive for quite some time, potentially, as might benzos depending on the benzo used. one would expect cocaine, however, to have gone negative after 5 days. urine tramadol also requested after pt stated perhaps he took too much tramadol the other day and insisted it was tramadol when challenged by MD. 01/29: similar presentation to yesterday. due to apparent akathisia last night, prolixin DCed and zyprexa started. cut suboxone from 16 mg daily to 8 mg daily as of tomorrow to see if there is any effect on his level of arousal. 01/30: lithium 0.96. seems clearer with suboxone dose reduction. observe for withdrawal Sx. abd xray for contraband in rectum, as pt's mental status has not been adequately explained by his Dx or meds regimen and he is known to have had drugs smuggled into inpatient settings or smuggled drugs into inpatient settings in the past. I spent ___25___ minutes with the patient and/or on the patient floor today, greater than?50% of which was spent counseling/coordinating care. Reason for contiued inpatient stay Substantial Risk for: inability to function and rapid decompensation
[2022-01-30 20:20] VITALS: BP 112/61; PULSE 84; RESP 16; TEMP 36.7; O2SAT 100
[2022-01-30] MEDS: Lithium Carbonate ER 300 MG TABLET.ER 600 MG PO (20:35)
[2022-01-31] MEDS: OLANZapine 5 MG TABLET PO (04:02)
[2022-01-31] MEDS: hydrOXYzine HCL 50 MG TABLET PO ×2 (04:02→23:13)
[2022-01-31] MEDS: Omeprazole 20 MG CAPSULE.DR PO (05:10)
[2022-01-31] MEDS: hydrOXYzine HCL 25 MG TABLET PO (05:10)
[2022-01-31] MEDS: OLANZapine 2.5 MG TABLET PO ×2 (10:53→21:40)
[2022-01-31] MEDS: Buprenorphine/Naloxone 8/2 mg FILM 1 FILM SUBLINGUAL (10:54)
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
[2022-01-31 21:11] VITALS: BP 142/65; PULSE 78; RESP 16; TEMP 37; O2SAT 100
[2022-01-31] MEDS: Lithium Carbonate ER 300 MG TABLET.ER 600 MG PO (21:40)
[2022-01-31] MEDS: Benztropine Mesylate 1 MG TABLET PO (22:11)
[2022-02-01] MEDS: Melatonin 3 MG TABLET 6 MG PO ×2 (00:43→22:48)
[2022-02-01] MEDS: chlorproMAZINE HCl 25 MG TABLET 50 MG PO ×2 (00:43→22:48)
[2022-02-01 10:00] VITALS: BP 121/71; PULSE 93; RESP 18; TEMP 36.6; O2SAT 98
[2022-02-01] MEDS: Buprenorphine/Naloxone 8/2 mg FILM 1 FILM SUBLINGUAL (10:23)
[2022-02-01] MEDS: OLANZapine 2.5 MG TABLET PO ×2 (10:23→22:48)
[2022-02-01] MEDS: Benztropine Mesylate 1 MG TABLET PO ×2 (10:23→22:48)
[2022-02-01] MEDS: Omeprazole 20 MG CAPSULE.DR PO (10:23)
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
[2022-02-01 22:42] VITALS: BP 121/73; PULSE 80; RESP 18; TEMP 36.3; O2SAT 100
[2022-02-01] MEDS: Lithium Carbonate ER 300 MG TABLET.ER 600 MG PO (22:48)
[2022-02-02 07:51] VITALS: BP 111/72; PULSE 92; RESP 17; TEMP 36.4; O2SAT 94
[2022-02-02] MEDS: Buprenorphine/Naloxone 8/2 mg FILM 1 FILM SUBLINGUAL (08:15)
[2022-02-02] MEDS: Benztropine Mesylate 1 MG TABLET PO (08:15)
[2022-02-02] MEDS: Omeprazole 20 MG CAPSULE.DR PO (08:16)
[2022-02-02] MEDS: OLANZapine 2.5 MG TABLET PO (08:16)
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
[2022-02-03] MEDS: OLANZapine 5 MG TABLET PO ×2 (02:11→20:46)
[2022-02-03] MEDS: hydrOXYzine HCL 50 MG TABLET PO ×2 (02:12→20:44)
[2022-02-03] MEDS: Lithium Carbonate ER 300 MG TABLET.ER 600 MG PO ×2 (02:12→20:45)
[2022-02-03] MEDS: Benztropine Mesylate 1 MG TABLET PO ×2 (02:12→10:09)
[2022-02-03 06:00] VITALS: BP 113/45; PULSE 88; RESP 16; TEMP 36.7; O2SAT 100
[2022-02-03] MEDS: Omeprazole 20 MG CAPSULE.DR PO (06:24)
[2022-02-03] MEDS: Buprenorphine/Naloxone 8/2 mg FILM 1 FILM SUBLINGUAL (10:09)
--- NOTE | 2022-02-03 17:26 | P.PNPSI_ITS ---
Subjective Subjective Date of Service: 02/03/22 Reason For Visit: Psychosis Subjective Notes: Alex Warning, Conditional Voluntary and 3 Day Interim History: I spoke with pt?s team, his 3 day is up on . I evaluated the pt this evening and upon interview he reports his sleep was ?okay, it was good.? Says his ?shaking? returned, unclear if this is akathesia or related to lithium. Pt is willing to trial propranolol. Mood is ?good.? Says he notices he gets more emotional ?very easily now.? Continues to report issues with his memory, says he has had issues with this for months, attributes this to his substance abuse. Pt says at home he has an issue of being scared of the paranormal, however has not had this issue at the hospital, possibly due to olanzapine. Pt asks to stop omeprazole. Energy is still ?sarah low,? but improving. Utox still pending.? Medication Compliance: Yes Side effects from medications: No Attending Groups: Intermittent Review of Systems Acute medical concerns: No Medical Review of Systems: unchanged Mental Status Exam Mental Status Exam Narrative: adequately dressed and kept.? cooperative.? no PMA/PMR.? speech incr amount, nml loudness, nml rate, nml prosody.? thoughts more organized.? less derailment and thought blocking evident. affect flexible, normo-intense, non-labile.? no SI/HI/AVH expressed. Mood is better. Diagnostics Vital Signs (24Hr): Vital Signs - 24 hr 02/03/22 06:00 Temperature 98.1 F Pulse Rate 88 Respiratory Rate 16 Blood Pressure 113/45 L Pulse Oximetry 100 Oxygen Delivery Method Room Air BMI result Body Mass Index 17.8 Labs Results: 01/30/22 09:04 01/30/22 09:04 Labs: Laboratory Results - last 48 hr 01/31/22 19:07 Ref Lab Test Result SEE NOTE Imaging Radiology Impressions: ITS Impressions Abdomen X-Ray 01/30/22 17:12 IMPRESSION: No radiodense foreign body identified. Medications Medications Current Medications Acetaminophen (Acetaminophen 325 Mg Tablet) 650 mg PO Q6H PRN PRN Reason: Headache/Pain Mild Scale (1-3) Al Hydroxide/Mg Hydroxide (Magnesium Hydrox/Alum Hydrox 30 Ml Oral.Susp) 30 ml PO Q6H PRN PRN Reason: Heartburn/Nausea Last Admin: 01/29/22 01:43 Dose: 30 ml Benztropine Mesylate (Benztropine Mesylate 1 Mg Tablet) 1 mg PO BID [facility] Last Admin: 02/03/22 10:09 Dose: 1 mg Buprenorphine/Naloxone (Buprenorphine/Naloxone 8/2 Mg Film) 1 film SUBLINGUAL DAILY [facility] Last Admin: 02/03/22 10:09 Dose: 1 film Chlorpromazine HCl (Chlorpromazine Hcl 25 Mg Tablet) 50 mg PO QID PRN PRN Reason: severe anxiety Hydroxyzine HCl (Hydroxyzine Hcl 25 Mg Tablet) 25 mg PO Q6H PRN PRN Reason: Anxiety Last Admin: 01/31/22 05:10 Dose: 25 mg Hydroxyzine HCl (Hydroxyzine Hcl 50 Mg Tablet) 50 mg PO BEDTIME PRN PRN Reason: Sleep Last Admin: 02/03/22 02:12 Dose: 50 mg [place] Carbonate ([place] Carbonate Er 300 Mg Tablet.Er) 600 mg PO BEDTIME [facility] Last Admin: 02/03/22 02:12 Dose: 600 mg Magnesium Hydroxide (Milk Of Magnesia 30 Ml Oral.Susp) 30 ml PO DAILY PRN PRN Reason: Constipation Olanzapine (Olanzapine 5 Mg Tablet) 5 mg PO Q4H PRN PRN Reason: agitation, psychosis Last Admin: 01/31/22 04:02 Dose: 5 mg Olanzapine (Olanzapine 5 Mg Tablet) 5 mg PO BEDTIME [facility] Last Admin: 02/03/22 02:11 Dose: 5 mg Omeprazole (Omeprazole 20 Mg Capsule.Dr) 20 mg PO DAILY@0630 [facility] Last Admin: 02/03/22 06:24 Dose: 20 mg Allergies Allergies Allergy/AdvReac Type Severity Reaction Status Date / Time sertraline [Zoloft] AdvReac Unknown RESTLESSNES Verified 11/11/21 07:23 S Assessment & Plan Assessment & Plan (1) Polysubstance abuse: Status: Acute Code(s): F19.10 - Other psychoactive substance abuse, uncomplicated (2) Depression: Qualifiers: Depression Type: other depression Qualified Code(s): F32.89 - Other specified depressive episodes Status: Acute Code(s): F32.9 - Major depressive disorder, single episode, unspecified (3) Psychosis: Status: Acute Code(s): F29 - Unspecified psychosis not due to a substance or known physiological condition Plan - Admit to M3 on section 12 - Offer PRN medications - Collateral information - Watch for withdrawal from drugs. 01/25: suspect bipolar diathesis in addition to patient's drug use. Discussed mood stabilization with [place] which patient agreed to start. [place] ER 300 mg HS tonight and 600 mg HS tomorrow. 01/26: continue lithium 01/27: start prolixin 2.5 BID for thought disorder 01/28: more organized today. continues to appear sedated. utox sent again, same as that done 01/23 except for NEG for opiates (POS for fentanyl, cocaine, benzos, cannabis). fentanyl and cannabis would be expected to be positive for quite some time, potentially, as might benzos depending on the benzo used. one would expect cocaine, however, to have gone negative after 5 days. urine tramadol also requested after pt stated perhaps he took too much tramadol the other day and insisted it was tramadol when challenged by MD. 01/29: similar presentation to yesterday. due to apparent akathisia last night, prolixin DCed and zyprexa started. cut suboxone from 16 mg daily to 8 mg daily as of tomorrow to see if there is any effect on his level of arousal. 01/30: lithium 0.96. seems clearer with suboxone dose reduction. observe for withdrawal Sx. abd xray for contraband in rectum, as pt's mental status has not been adequately explained by his Dx or meds regimen and he is known to have had drugs smuggled into inpatient settings or smuggled drugs into inpatient settings in the past. 01/31/2022: We discussed maintaining current medication regimen. Is aware that if there are concerns regarding level of alertness, medications might be held. U tox pending sample being provided by patient 02/01: utox result pending . Thorazine prn. Increase melatonin at bedtime 02/02: Utox pending. Pt reports grogginess, will change thorazine at bedtime to PRN, d/c melatonin. Will change zyprexa to 5 mg QHS and discontinue 2.5 mg BID to aid with sleep and adherence. 02/03: discontinue cogentin due to lack of benefit. Start propranolol 10 mg BID to r/o tremor related to lithium. I spent minutes with the patient and/or on the patient floor today, greater than?50% of which was spent counseling/coordinating care. Patient educated on: diagnosis, medication risk/benefits and therapeutic strategies Reason for contiued inpatient stay Substantial Risk for: med/psych decompensation
[2022-02-03] MEDS: hydrOXYzine HCL 25 MG TABLET PO (20:44)
[2022-02-03] MEDS: Propranolol HCL 10 MG TABLET PO (20:44)
[2022-02-03 20:45] VITALS: BP 126/59; PULSE 86; RESP 18; TEMP 36.8; O2SAT 95
[2022-02-04] MEDS: chlorproMAZINE HCl 25 MG TABLET 50 MG PO (03:11)
[2022-02-04] MEDS: hydrOXYzine HCL 25 MG TABLET PO (03:11)
[2022-02-04] MEDS: OLANZapine 5 MG TABLET PO ×2 (04:08→20:38)
[2022-02-04] MEDS: Buprenorphine/Naloxone 8/2 mg FILM 1 FILM SUBLINGUAL (08:47)
[2022-02-04 08:51] VITALS: BP 106/54; PULSE 67; RESP 14; TEMP 36.9; O2SAT 98
--- NOTE | 2022-02-04 17:15 | HO.PSYCHPN ---
Subjective Subjective Date of Service: 02/04/22 Reason For Visit: Psychosis Subjective Notes: Alex Warning, Conditional Voluntary and 3 Day Healthcare Proxy: No Guardianship: No Medical Problems Affecting Mental Status: No Interim History: I evaluated the pt this evening and upon interview he reports ?Im doing real good.? Says he hasnt really noticed the restlessness today, but it was worse last night, of note he took PRN thorazine, will discontinue. Pt has been more sedated today per SW, may be due to thorazine. Pt says he feels ?bored.? No tremor. Feels like maybe the cogentin was helpful, willing to stay on olanzapine 5 mg HS with cogentin. Says he is pacing before bedtime. Wants to stay on olanzapine because ?it has done a lot for my mind.? Denies anxiety, says he has ?zero worries.?? Medication Compliance: Yes Side effects from medications: No Attending Groups: No Review of Systems Acute medical concerns: No Medical Review of Systems: unchanged Mental Status Exam Mental Status Exam Narrative: adequately dressed and kept.? cooperative.? no PMA/PMR.? speech incr amount, nml loudness, nml rate, nml prosody.? thoughts more organized.? less derailment and thought blocking evident. affect flexible, normo-intense, non-labile.? no SI/HI/AVH expressed. Mood is better. Diagnostics Vital Signs (24Hr): Vital Signs - 24 hr 02/03/22 20:45 02/04/22 08:51 Temperature 98.3 F 98.5 F Pulse Rate 86 67 Respiratory Rate 18 14 Blood Pressure 126/59 L 106/54 L Pulse Oximetry 95 98 Oxygen Delivery Method Room Air Room Air BMI result Body Mass Index 17.8 Labs Results: 01/30/22 09:04 01/30/22 09:04 Imaging Radiology Impressions: ITS Impressions Abdomen X-Ray 01/30/22 17:12 IMPRESSION: No radiodense foreign body identified. Medications Medications Current Medications Acetaminophen (Acetaminophen 325 Mg Tablet) 650 mg PO Q6H PRN PRN Reason: Headache/Pain Mild Scale (1-3) Al Hydroxide/Mg Hydroxide (Magnesium Hydrox/Alum Hydrox 30 Ml Oral.Susp) 30 ml PO Q6H PRN PRN Reason: Heartburn/Nausea Last Admin: 01/29/22 01:43 Dose: 30 ml Buprenorphine/Naloxone (Buprenorphine/Naloxone 8/2 Mg Film) 1 film SUBLINGUAL DAILY [facility] Last Admin: 02/04/22 08:47 Dose: 1 film Chlorpromazine HCl (Chlorpromazine Hcl 25 Mg Tablet) 50 mg PO QID PRN PRN Reason: severe anxiety Last Admin: 02/04/22 03:11 Dose: 50 mg Hydroxyzine HCl (Hydroxyzine Hcl 25 Mg Tablet) 25 mg PO Q6H PRN PRN Reason: Anxiety Last Admin: 02/04/22 03:11 Dose: 25 mg Hydroxyzine HCl (Hydroxyzine Hcl 50 Mg Tablet) 50 mg PO BEDTIME PRN PRN Reason: Sleep Last Admin: 02/03/22 20:44 Dose: 50 mg [place] Carbonate ([place] Carbonate Er 300 Mg Tablet.Er) 600 mg PO BEDTIME [facility] Last Admin: 02/03/22 20:45 Dose: 600 mg Magnesium Hydroxide (Milk Of Magnesia 30 Ml Oral.Susp) 30 ml PO DAILY PRN PRN Reason: Constipation Olanzapine (Olanzapine 5 Mg Tablet) 5 mg PO Q4H PRN PRN Reason: agitation, psychosis Last Admin: 02/04/22 04:08 Dose: 5 mg Olanzapine (Olanzapine 5 Mg Tablet) 5 mg PO BEDTIME [facility] Last Admin: 02/03/22 20:46 Dose: 5 mg Propranolol HCl (Propranolol Hcl 10 Mg Tablet) 10 mg PO BID [facility]; Protocol Last Admin: 02/04/22 08:46 Dose: Not Given Allergies Allergies Allergy/AdvReac Type Severity Reaction Status Date / Time sertraline [Zoloft] AdvReac Unknown RESTLESSNES Verified 11/11/21 07:23 S Assessment & Plan Assessment & Plan (1) Polysubstance abuse: Status: Acute Code(s): F19.10 - Other psychoactive substance abuse, uncomplicated (2) Depression: Qualifiers: Depression Type: other depression Qualified Code(s): F32.89 - Other specified depressive episodes Status: Acute Code(s): F32.9 - Major depressive disorder, single episode, unspecified (3) Psychosis: Status: Acute Code(s): F29 - Unspecified psychosis not due to a substance or known physiological condition Plan - Admit to M3 on section 12 - Offer PRN medications - Collateral information - Watch for withdrawal from drugs. 8/7: suspect bipolar diathesis in addition to patient's drug use. Discussed mood stabilization with [place] which patient agreed to start. [place] ER 300 mg HS tonight and 600 mg HS tomorrow. 01/26: continue lithium 01/27: start prolixin 2.5 BID for thought disorder 01/28: more organized today. continues to appear sedated. utox sent again, same as that done 01/23 except for NEG for opiates (POS for fentanyl, cocaine, benzos, cannabis). fentanyl and cannabis would be expected to be positive for quite some time, potentially, as might benzos depending on the benzo used. one would expect cocaine, however, to have gone negative after 5 days. urine tramadol also requested after pt stated perhaps he took too much tramadol the other day and insisted it was tramadol when challenged by MD. 01/29: similar presentation to yesterday. due to apparent akathisia last night, prolixin DCed and zyprexa started. cut suboxone from 16 mg daily to 8 mg daily as of tomorrow to see if there is any effect on his level of arousal. 01/30: lithium 0.96. seems clearer with suboxone dose reduction. observe for withdrawal Sx. abd xray for contraband in rectum, as pt's mental status has not been adequately explained by his Dx or meds regimen and he is known to have had drugs smuggled into inpatient settings or smuggled drugs into inpatient settings in the past. 01/31/2022: We discussed maintaining current medication regimen. Is aware that if there are concerns regarding level of alertness, medications might be held. U tox pending sample being provided by patient 02/01: utox result pending . Thorazine prn. Increase melatonin at bedtime 02/02: Utox pending. Pt reports grogginess, will change thorazine at bedtime to PRN, d/c melatonin. Will change zyprexa to 5 mg QHS and discontinue 2.5 mg BID to aid with sleep and adherence. 02/03: discontinue cogentin due to lack of benefit. Start propranolol 10 mg BID to r/o tremor related to lithium. 02/04: Pt likes propranolol, says it has helped with anxiety but still feels restless and now thinks cogentin helped. Will also d/c thorazine, as this may be exacerbating restlessness. I spent minutes with the patient and/or on the patient floor today, greater than?50% of which was spent counseling/coordinating care. Patient educated on: medication risk/benefits and therapeutic strategies Reason for contiued inpatient stay Substantial Risk for: med/psych decompensation
--- NOTE | 2022-02-04 17:16 | PC.NURSE ---
Female family member dropped off belongings and food to patient. They were informed that the food would not be accepted due to it was unsealed take out from [facility]. One pair of pajama pants and one book were accepted onto the unit. Upon inspection of the waistband of the pants a small packet was found and opened by this movie writer in the presence of Martínez Banks RN. In the packet a ground powdery substance was found. This substance was contained. Stephanie Daniels, Yessi Lock and security were informed.
[2022-02-04 19:25] VITALS: BP 119/68; PULSE 76; RESP 16; TEMP 36.7; O2SAT 97
[2022-02-04] MEDS: Benztropine Mesylate 1 MG TABLET PO (20:38)
[2022-02-04] MEDS: Lithium Carbonate ER 300 MG TABLET.ER 600 MG PO (20:39)
[2022-02-04] MEDS: Propranolol HCL 10 MG TABLET PO (20:39)
[2022-02-05] MEDS: hydrOXYzine HCL 25 MG TABLET PO (05:55)
[2022-02-05 07:00] VITALS: BMI 17.9
[2022-02-05 08:15] VITALS: BP 109/75; PULSE 65; RESP 16; TEMP 36.4; O2SAT 100
[2022-02-05] MEDS: Benztropine Mesylate 1 MG TABLET PO (08:16)
[2022-02-05] MEDS: Buprenorphine/Naloxone 8/2 mg FILM 1 FILM SUBLINGUAL (08:16)
[2022-02-05] MEDS: Propranolol HCL 10 MG TABLET PO (08:16)
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
[2022-02-05] MEDS: Naloxone HCl Nasal TAKE HOME 4 MG SPRAY NOSTRILALT (12:53)
[2022-02-07 04:35] LABS: Codeine, Ur NEGATIVE; Hydrocodone, Ur NEGATIVE; Oxycodone, Ur NEGATIVE
[2022-02-07 04:36] LABS: Hydromorphone, Ur NEGATIVE; Morphine, Ur NEGATIVE; Oxymorphone, Ur NEGATIVE
[2022-02-07 04:37] LABS: Norhydrocodone, Ur NEGATIVE
[2022-02-07 04:41] LABS: Noroxycodone, Ur NEGATIVE
[2022-02-07 15:06] LABS: Desmethyltramadol, Ur NEGATIVE; Tramadol, Ur NEGATIVE
[2022-02-09 15:33] LABS: EDDP (Methadone Metabolite) negative; Methadone, Urine MS negative
== END 2022-02-05 13:58 | disposition home or self-care (01) | DRG 885 ==
LOC: HO.ED 13:47 → HO.PADLT16 22:02
PROVIDERS: Nurse Practitioner Family; Registered Nurse; Admitting Provider Psychiatry & Neurology Psychiatry; Emergency Provider Emergency Medicine; PCP Nurse Practitioner Family; Visit Provider Psychiatry & Neurology Psychiatry
DX: F31.9 Bipolar disorder, unspecified (principal); R45.851 Suicidal ideations; F29 Unspecified psychosis not due to a substance or known physiological condition; F19.10 Other psychoactive substance abuse, uncomplicated; Z20.822 Contact with and (suspected) exposure to COVID-19; Z79.899 Other long term (current) drug therapy
CPT/HCPCS: 36415; 74019; 80048; 80053; 80061; 80178; 80307; 80358; 80364; 80365; 80373; 81001; 82077; 82607; 82746; 83036; 83735; 84439; 84443; 85025; 87635; 93005; 99285; J1200

== ENCOUNTER 2022-08-06 22:43 | Emergency (ER) | payer OTHER, SELFPAY ==
--- NOTE | ~2022-08-06 | CT_ITS ---
EXAMINATION: NONCONTRAST HEAD CT NONCONTRAST MAXILLOFACIAL CT INDICATION INFORMATION: Trauma. COMPARISON: CT head 11/14/2020. TECHNIQUE: Separate noncontrast CT examinations of the head and maxillofacial bones were performed. Coronal and sagittal images were created for each examination at the technologist workstation. This CT examination was performed using dose optimization techniques as appropriate, variously including the following: *Automated exposure control *Adjustment of mA and/or kV according to patient size (this includes techniques or standardized protocols for targeted exams where dose is matched to indication/reason for exam; i.e. extremities or head) *Use of iterative reconstruction technique DLP: 573 and 281 mGy-cm FINDINGS: Head: There is no evidence of acute intracranial hemorrhage or territorial infarction. No abnormal mass effect or midline shift is seen. Smith to white matter differentiation is well preserved. No extra-axial fluid collections are identified. No hydrocephalus. No significant volume loss. There is no abnormal attenuation within the brain parenchyma. Bilateral frontal scalp hematomas and left frontal scalp laceration. No calvarial fracture. The mastoid air cells are well aerated. Maxillofacial: Comminuted bilateral nasal alae bone fractures. The frontal, maxillary, ethmoid, and sphenoid sinuses are well aerated. The mandibular heads are well-seated in the condylar fossa. The orbits demonstrate a normal appearance bilaterally. The globes are intact, and there are no suspicious findings to suggest retrobulbar hemorrhage. Visualized portions of the cervical spine are unremarkable. CT/CT head/brain wo IV con IMPRESSION: 1. Comminuted bilateral nasal bone fractures. 2. Hematomas in the frontal scalp and nose with laceration in the left frontal scalp. 3. No acute intracranial abnormalities.
--- NOTE | ~2022-08-06 | CT_ITS ---
EXAMINATION: NONCONTRAST HEAD CT NONCONTRAST MAXILLOFACIAL CT INDICATION INFORMATION: Trauma. COMPARISON: CT head 11/14/2020. TECHNIQUE: Separate noncontrast CT examinations of the head and maxillofacial bones were performed. Coronal and sagittal images were created for each examination at the technologist workstation. This CT examination was performed using dose optimization techniques as appropriate, variously including the following: *Automated exposure control *Adjustment of mA and/or kV according to patient size (this includes techniques or standardized protocols for targeted exams where dose is matched to indication/reason for exam; i.e. extremities or head) *Use of iterative reconstruction technique DLP: 573 and 281 mGy-cm FINDINGS: Head: There is no evidence of acute intracranial hemorrhage or territorial infarction. No abnormal mass effect or midline shift is seen. Smith to white matter differentiation is well preserved. No extra-axial fluid collections are identified. No hydrocephalus. No significant volume loss. There is no abnormal attenuation within the brain parenchyma. Bilateral frontal scalp hematomas and left frontal scalp laceration. No calvarial fracture. The mastoid air cells are well aerated. Maxillofacial: Comminuted bilateral nasal alae bone fractures. The frontal, maxillary, ethmoid, and sphenoid sinuses are well aerated. The mandibular heads are well-seated in the condylar fossa. The orbits demonstrate a normal appearance bilaterally. The globes are intact, and there are no suspicious findings to suggest retrobulbar hemorrhage. Visualized portions of the cervical spine are unremarkable. CT/CT facial bones wo IV con IMPRESSION: 1. Comminuted bilateral nasal bone fractures. 2. Hematomas in the frontal scalp and nose with laceration in the left frontal scalp. 3. No acute intracranial abnormalities.
[2022-08-06 22:46] VITALS: BP 133/84; PULSE 82; O2SAT 98
[2022-08-06 22:48] VITALS: BP 129/65; PULSE 70; RESP 16; TEMP 36.6; O2SAT 100; BMI 18.0
--- NOTE | 2022-08-06 23:32 | ED_ITS ---
HPI - General Adult General Chief complaint: Fall Stated complaint: ETOH Time Seen by Provider: 08/06/22 23:14 Source: patient, RN notes reviewed and old records reviewed Mode of arrival: EMS Limitations: other (Alcohol intoxication) History of Present Illness HPI narrative: 27-year-old male past medical history significant for anxiety with depression, seizure disorder, polysubstance abuse presents for evaluation after a fall. Patient presents via EMS that happened about an hour prior to my evaluation He reports that he had 2 beers and 1 shot of liquor He states that he then went outside and ?I smoke a cigarette which are usually do not do. ? He states that that made him lightheaded causing him to fall onto the pavement Patient struck mostly left side of his face He denies any loss of consciousness He sustained several abrasions and lacerations to the face Reports mild, 3-10 pain Denies any neck pain, injuries to his extremities Denies any nausea, vomiting, visual changes, current lightheadedness or dizziness Related Data Home Medications Medication Instructions Recorded Confirmed omeprazole magnesium 20 mg 20 mg PO DAILY 07/20/22 08/04/22 tablet,delayed release (Prilosec OTC) Previous Rx's Medication Instructions Recorded escitalopram oxalate 20 mg tablet 20 mg PO DAILY 90 days #90 tabs 07/20/22 (Lexapro) levetiracetam 500 mg tablet 1,000 mg PO BID 30 days #120 tabs 07/20/22 cephalexin 500 mg capsule 500 mg PO TID 5 days #15 caps 08/07/22 Allergies Allergy/AdvReac Type Severity Reaction Status Date / Time sertraline [Zoloft] AdvReac Unknown RESTLESSNES Verified 08/04/22 15:04 S Review of Systems Constitutional: Constitutional: Reports as per HPI, Denies chills and Denies fatigue Eyes: Eyes: Denies change in vision, Denies loss of vision and Denies eye pain Cardiovascular: Cardiovascular: Denies chest pain and Denies dyspnea Respiratory: Respiratory: Denies cough and Denies dyspnea Gastrointestinal: Gastrointestinal: Denies abdominal pain, Denies constipation and Denies vomiting Genitourinary: Genitourinary: Denies difficulty urinating and Denies dysuria Neurologic: Denies focal weakness, Denies loss of vision and Denies seizure- like activity Endocrine: Endocrine: Denies fatigue [facility] Past Medical History Medical History Esophageal dilatation Motility disorder, esophageal Polysubstance abuse Psychosis Surgical History Hx of endoscopy Social History Social History Household Members: Family Housing: House Do you presently have visiting nurse or other home services: No Unable to assess alcohol history related to: Unknown Alcohol intake: current Alcohol intake frequency: a few times a week Alcohol type: beer and hard liquor Patient Tobacco Use Status: Never used Tobacco Smoked in Last 30 Days: No e-Cigarette/Vaping Use: Never Used Second Hand Smoke Exposure: Yes Use of substances other than those prescribed or required for medical reasons: No Substance Use Type: Crack/Cocaine, Heroin, Marijuana, Opiates, Painkillers and Prescription Drugs Advance Directives: No Advance Directives Information Provided: Yes service: No Current occupational status: employed 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 Sexual orientation: Don't Know Cognitive needs: No Hearing needs: No Vision needs: No Physical Exam ED Vital Signs: Vital Signs - 24 hr 08/06/22 22:48 Temperature 97.9 F Pulse Rate 70 Respiratory Rate 16 Blood Pressure 129/65 Pulse Oximetry 100 Oxygen Delivery Method Room Air BMI result Body Mass Index 18.0 Const General: healthy appearing, comfortable, no acute distress, alert and awake Nutritional Appearance: well nourished Orientation/consciousness: patient oriented x3 HENMT Other: Two lacerations as documented below, there are also multiple abrasions including the center of the forehead, left 2nd metacarpal, and left lateral/temporal region. No palpable deformities to the orbits or zygomatic arches. Head: Yes abrasion and No Del Cid's sign Eyes Periorbital: periorbital findings normal Eyelids: Yes eyelids normal Conjunctivae: conjunctivae normal Sclerae: sclerae normal Corneas: corneas normal Pupils: Equal, round and reactive pupils present, Pupils normal by confrontation and Pupil accommodation reflex normal EOM: EOMs intact bilaterally Resp Effort & Inspection: normal respiratory effort, able to speak in complete sentences, no audible wheezes and not labored Skin General skin exam: no rashes or lesions noted and elasticity normal Lesions: no lesions Rashes: no rashes Trauma: abrasion and laceration Left forehead Y-shaped (approximately 5 x 3 cm full-thickness laceration) and avulsion; not actively bleeding, Bridge of the nose linear (Approximately 2 cm, partial-thickness) and actively bleeding; does not involve muscle tissue Neuro General: patient oriented x3 Cranial nerves: Yes Equal, round and reactive pupils present Extrem General: Yes full ROM Course Reevaluation(s) Reevaluation #1: CT scan confirms bilateral nasal bone fracture. There is no significant deformity. However given that the patient has laceration to the bridge of the nose, we will treat with cephalexin. Time: 00:51 Medications Administered Discontinued Medications Generic Name Dose Route Start Last Admin Trade Name Freq PRN Reason Stop Dose Admin Diphtheria/Tetanus/Acell Pertussis 0.5 ml 08/07/22 00:38 08/07/22 00:46 Diphth,Pertus(Acell),Tet Adult 0.5 Ml Syringe IM 08/07/22 00:39 0.5 ml .ONCE ONE Administration Lidocaine/Epinephrine 30 ml 08/06/22 23:58 08/07/22 00:03 Lidocaine Hcl 1% Pf/Epi 1:200,000 30 Ml Vial INFILTRATI 08/06/22 23:59 30 ml ONCE ONE Administration Tetanus Immune Globulin 250 unit 08/06/22 23:24 08/07/22 00:37 Tetanus Immune Globulin/Pf 250 Unit Syringe IM 08/06/22 23:25 Not Given ONCE ONE Procedures Laceration Left frontal scalp: Site: scalp and face Side (If applicable): left Size (cm): 5 Description: other (Y shaped) Depth: simple, single layer Local Anesthetic: lidocaine 2% and with epi Amount of anesthesia used (mL): 6 Pre-repair: wound explored and irrigated extensively Skin layer closed with: nylon Size (cm): 6-0 Number of sutures: 7 Technique: simple, interrupted Bridge of the nose: Site: other (Bridge of the nose) Size (cm): 2 Description: linear Depth: simple, single layer Local Anesthetic: lidocaine 2% and with epi Amount of anesthesia used (mL): 2 Pre-repair: wound explored and irrigated extensively Skin layer closed with: nylon Size (cm): 6-0 Number of sutures: 2 Technique: simple, interrupted Medical Decision Making Medical Decision Making MDM Narrative: Will 27-year-old male presents for evaluation after a fall. He has multiple abrasions in 2 lacerations or require closure, see procedure note. Will get a CT scan the brain and maxillofacial bones given the head strike to her for acute traumatic injuries. The patient has no neck pain or tenderness. Tetanus booster updated Differential Diagnosis Alcohol abuse Polysubstance abuse Laceration Contusion Skin avulsion Abrasion Intracranial hemorrhage Maxillofacial fracture Discharge Plan Discharge Clinical Impression: Fall, Face lacerations, Fracture of nasal bones Patient Disposition: Home, Self-Care Instructions: Laceration (ED) Additional Instructions: You had 9 sutures placed today, 7 to your forehead and 2 to your nose These can be removed in 5-7 days You also have bilateral nasal bone fractures Given that you have an open wound with fractured bones, take cephalexin 3 times daily for the next 5 days Your tetanus booster was updated today Prescriptions: New cephalexin 500 mg capsule 500 mg PO TID 5 Days Qty: 15 0RF No Action omeprazole magnesium [Prilosec OTC] 20 mg tablet,delayed release (DR/EC) 20 mg PO DAILY levetiracetam 500 mg tablet 1,000 mg PO BID 30 Days Qty: 120 2RF escitalopram oxalate [Lexapro] 20 mg tablet 20 mg PO DAILY 90 Days Qty: 90 0RF Referrals: Noah Riley [Physician] - 2 weeks (bilateral nasal bone fracture)
[2022-08-07] MEDS: Lidocaine HCl 1% PF/Epi 1:200,000 30 ML VIAL INFILTRATI (00:03)
[2022-08-07] MEDS: Diphth,Pertus(ACell),Tet Adult 0.5 ML SYRINGE IM (00:46)
--- NOTE | 2022-08-07 01:03 | PC.NURSE ---
discharge instructions given/explained, no apparent distress,no sob, all of pt's questions answered, steady gait
== END 2022-08-07 01:04 | disposition home or self-care (01) ==
PROVIDERS: Emergency Provider Emergency Medicine; PCP Nurse Practitioner Family
DX: S02.2XXA Fracture of nasal bones, initial encounter for closed fracture (principal); S01.01XA Laceration without foreign body of scalp, initial encounter; S01.21XA Laceration without foreign body of nose, initial encounter; S00.01XA Abrasion of scalp, initial encounter; F41.9 Anxiety disorder, unspecified; F33.1 Major depressive disorder, recurrent, moderate; R56.9 Unspecified convulsions; F11.10 Opioid abuse, uncomplicated; R51.9 Headache, unspecified; F14.10 Cocaine abuse, uncomplicated; W01.0XXA Fall on same level from slipping, tripping and stumbling without subsequent striking against object, initial encounter; Y93.9 Activity, unspecified; Y92.9 Unspecified place or not applicable; Y99.9 Unspecified external cause status; Z79.899 Other long term (current) drug therapy
CPT/HCPCS: 12014; 70450; 70486; 90471; 90715; 99284

== ENCOUNTER 2022-08-17 15:18 | Outpatient (REF) | payer OTHER, SELFPAY ==
[2022-08-17 16:27] LABS: MANUAL DIFF FLAG NO
[2022-08-17 16:32] LABS: Basophils Percent Auto 0.4 % (0-2); Eosinophils Absolute Auto 0.7 X10*3/uL (0.0-0.4); Eosinophils Percent Auto 9.8 % (0-4); Hematocrit 45.2 % (42.0-52.0); Hemoglobin 14.4 g/dl (14.0-18.0); Imm Gran Abs Auto 0.01 X10*3/uL (0.00-0.03); Imm Gran Pct Auto 0.1 % (0.0-0.4); Lymphocytes Absolute Auto 1.3 X10*3/uL (1.2-4.9); Lymphocytes Percent Auto 17.1 % (20-40); Mean Corpuscular HGB Conc 31.9 g/dl (31.0-36.0); Mean Corpuscular Hemoglobin 29.2 pg (27.0-33.0); Mean Corpuscular Volume 91.7 fL (80.0-98.0); Mean Platelet Volume 9.9 fL (9.4-12.4); Monocytes Absolute Auto 0.5 X10*3/uL (0.1-1.2); Monocytes Percent Auto 6.7 % (2-11); Neutrophils Absolute Auto 4.8 x10*3/uL (2.0-8.3); Neutrophils Percent Auto 65.9 % (45-73); Platelet Count 321 X10*3/uL (160-400); Red Blood Count 4.93 X10*6/uL (4.60-5.80); Red Cell Distribution Width 13.2 % (11.0-16.0); White Blood Count 7.3 X10*3/uL (4.8-10.8)
[2022-08-17 17:57] LABS: Alanine Aminotransferase 16 U/L (0-40); Albumin Level 4.7 g/dL (3.5-5.0); Alkaline Phosphatase 102 U/L (39-117); Anion Gap 12 (12-20); Aspartate Amino Transferase 18 U/L (5-37); Bilirubin Total 0.7 mg/dL (0.0-1.0); Blood Urea Nitrogen 20 mg/dL (9-16); Calcium 9.8 mg/dL (8.4-10.2); Carbon Dioxide 30 mmol/L (22-29); Chloride 104 mmol/L (96-108); Cholesterol 198 mg/dL; Estimated Glomerular Filt Rate > 60; Glucose Fasting 85 mg/dL (60-99); HDL Cholesterol 62 mg/dL; LDL Cholesterol Calculated 114 mg/dl; Potassium 4.5 mmol/L (3.3-5.1); Sodium 141 mmol/L (135-145); Total Protein 7.9 g/dL (6.5-8.0); Triglycerides 113 mg/dL
[2022-08-17 18:14] LABS: TSH reflex Free T4 1.38 uIU/mL (0.32-4.0)
[2022-08-19 17:53] LABS: Levetiracetam Keppra 21.4 mcg/mL (6.0-46.0)
== END 2022-08-17 15:19 | disposition home or self-care (01) ==
LOC: HO.HMGCLDS 15:18
PROVIDERS: PCP Nurse Practitioner Family; Visit Provider Nurse Practitioner Family
DX: F41.8 Other specified anxiety disorders (principal); R56.9 Unspecified convulsions; R53.83 Other fatigue
CPT/HCPCS: 36415; 80053; 80061; 80177; 84443; 85025

== ENCOUNTER 2022-09-29 12:54 | Outpatient (REF) | payer OTHER, SELFPAY ==
--- NOTE | 2022-09-29 12:57 | EEG_ITS ---
FINDINGS: Waking background activity consists of a well-defined 10-11 Hz, low to moderate voltage posterior alpha frequency that is seen symmetrically and attenuates well with eye opening, while low-voltage fast frequencies predominate anteriorly. Excessive beta frequencies are seen, which may represent medication effect. Photic stimulation is without activation. Hyperventilation was omitted. No sleep stages are identified. IMPRESSION: This waking EEG is within normal limits. MD JEAN Castro/JF / [id number]
== END 2022-09-29 12:55 | disposition home or self-care (01) ==
LOC: HO.NEURO 12:54
PROVIDERS: Visit Provider Nurse Practitioner Family
DX: R56.9 Unspecified convulsions (principal)
CPT/HCPCS: 95816

== ENCOUNTER 2022-11-03 18:12 | Emergency (ER) | payer OTHER, SELFPAY ==
[2022-11-03 18:21] VITALS: BP 139/63; BP 169/89; PULSE 130; PULSE 134; RESP 18; TEMP 37.1; O2SAT 99; BMI 18.6
--- NOTE | 2022-11-03 18:36 | PC.NURSE ---
security at bedside for a change analyst, belongings going to decon
--- NOTE | 2022-11-03 18:44 | PC.NURSE ---
Arrived via ems from home after his mother found him unresponsive. Narcan by PD prior to arrival. Upon arrival alert and oriented, states no pain or sob. states snorted $3 bag of cocaine and doesn`t remember anything after that. States has not used any drugs in about a year however thinks there may have been fentanyl in the cocaine. Denies SI stated it was an accident.
--- NOTE | 2022-11-03 18:46 | ED.GENADULT ---
HPI - General Adult General Chief complaint: Overdose Stated complaint: overdose 12 mg narcan Time Seen by Provider: 11/03/22 18:29 Source: patient Mode of arrival: ambulatory Limitations: no limitations History of Present Illness HPI narrative: 27 yold male with pmh of substance abuse presents tot he ED for accidental overdose. patient states he accidentally overdose after taking heroine, fentanyl, and cocaine. patient states he has been clear for one year and he relapsed. Patient does not want detox. patient states overdose was accidental. patient denies any suicdial or homicidal ideation. Patient presently asymptoamtic. Related Data Home Medications Medication Instructions Recorded Confirmed omeprazole magnesium 20 mg 20 mg PO DAILY 07/20/22 08/17/22 tablet,delayed release (Prilosec OTC) Previous Rx's Medication Instructions Recorded escitalopram oxalate 20 mg tablet 20 mg PO DAILY 90 days #90 tabs 07/20/22 (Lexapro) levetiracetam 500 mg tablet 1,000 mg PO BID 30 days #120 tabs 07/20/22 cephalexin 500 mg capsule 500 mg PO TID 5 days #15 caps 08/07/22 doxycycline monohydrate 100 mg 100 mg PO BID 7 days #14 caps 08/17/22 capsule Allergies Allergy/AdvReac Type Severity Reaction Status Date / Time sertraline [Zoloft] AdvReac Unknown RESTLESSNES Verified 11/03/22 18:26 S Review of Systems Review of Systems: accidental overdose Yes all other systems are reviewed and are negative PMFSH Past Medical History Medical History Esophageal dilatation Motility disorder, esophageal Polysubstance abuse Psychosis Surgical History Hx of endoscopy Social History Social History Household Members: Family Housing: House Do you presently have visiting nurse or other home services: No Unable to assess alcohol history related to: Unknown Alcohol intake: current Alcohol intake frequency: holidays/special occasions only Alcohol type: beer and hard liquor Patient Tobacco Use Status: Never used Tobacco Smoked in Last 30 Days: No e-Cigarette/Vaping Use: Never Used Second Hand Smoke Exposure: Yes Use of substances other than those prescribed or required for medical reasons: Yes Substance Use Type: Crack/Cocaine Substance Use Frequency: Recent Binge Advance Directives: No Advance Directives Information Provided: Yes service: No Current occupational status: employed Current occupation: rt hand /[employer] Sexual orientation: Don't Know Cognitive needs: No Hearing needs: No Vision needs: No Physical Exam ED Vital Signs: Vital Signs - 24 hr 11/03/22 18:21 11/03/22 18:54 11/03/22 19:40 Temperature 98.7 F 97.4 F 97.6 F Pulse Rate 134 H 101 H 81 Respiratory Rate 18 18 16 Blood Pressure 139/63 135/64 121/79 Pulse Oximetry 99 96 Oxygen Delivery Method Room Air Room Air 11/03/22 22:15 Temperature 98.6 F Pulse Rate 75 Respiratory Rate 18 Blood Pressure 135/69 Pulse Oximetry 98 Oxygen Delivery Method Room Air BMI result Body Mass Index 18.6 Const General: cooperative, healthy appearing, comfortable, no acute distress, well developed, alert, awake and Physically active Orientation/consciousness: oriented to person, oriented to place, oriented to time and patient oriented x3 HENAL Head: Yes normal to inspection, Yes No palpable skull fracture present, Yes normocephalic, Yes atraumatic and No abrasion Eyes General: appearance normal, both eyes and all related structures Neck Neck: Yes normal visual inspection, Yes full ROM, Yes no lymphadenopathy, Yes no meningeal signs, Yes trachea midline, Yes supple, No anterior neck swelling and No tender Chest Chest palpation & inspection: normal inspection of the chest and normal palpation of entire chest wall Resp Effort & Inspection: normal respiratory effort and able to speak in complete sentences Auscultation: clear to auscultation bilaterally Cardio Jugular venous distension: no JVD Heart sounds: S1 normal heart sound present and S2 normal heart sound present GI Inspection: Yes normal to inspection and No abdominal wall ecchymosis Palpation (GI): Soft to palpation, not firm, nontender, no guarding and not rigid General: No CVA tenderness and Yes no CVA tenderness Back/Spine/Pelvis Back: no CVA tenderness, No CVA tenderness and No back tenderness Skin General skin exam: no rashes or lesions noted and elasticity normal Neuro General: oriented to person, oriented to place, oriented to time, patient oriented x3, gait normal, tone normal, moves all extremities, Normal light touch and pain sensation, no meningeal signs, no focal motor deficits, CN's II-XI intact bilaterally and normal sensation to monofilament Extrem General: Yes normal to inspection and Yes full ROM Psych Appearance: grossly normal, well kempt and not disheveled Course Course Course Narrative: Patient will be watched in the ED and CARE NIKHIL ada accommodation consultant fredi. Reevaluation(s) Reevaluation #1: Patient evaluated by care team consulted and patient does not want detox. Patient to be discharged Medical Decision Making Medical Decision Making [facility] Narrative: 27 yold male presents to the ED for accidental overdose after taking heroin or cocaine. Patient denies any suicidal or homicidal ideation. Patient evaluated by care team. Patient does not want detox. Patient picked up by father Differential Diagnosis Differential Diagnoses: The differential diagnosis associated with the presentation includes Admission/Observation Consideration of admission/observation: Escalation of care including admission/observation considered Consult Healthcare Provider Management of the patient was discussed with: [employer] Coordinator (Care team) Discharge Plan Discharge Clinical Impression: Polysubstance abuse Patient Disposition: Home, Self-Care Instructions: Polysubstance Abuse (ED) Additional Instructions: Return to ED for any suicidal/homicidal ideation, auditory/visual hallucinations, any physical complaints, or any other concerning symptoms. Please follow up with PCP Prescriptions: No Action cephalexin 500 mg capsule 500 mg PO TID 5 Days Qty: 15 0RF omeprazole magnesium [Prilosec OTC] 20 mg tablet,delayed release (DR/EC) 20 mg PO DAILY levetiracetam 500 mg tablet 1,000 mg PO BID 30 Days Qty: 120 2RF escitalopram oxalate [Lexapro] 20 mg tablet 20 mg PO DAILY 90 Days Qty: 90 0RF doxycycline monohydrate 100 mg capsule 100 mg PO BID 7 Days Qty: 14 0RF Interventions: ED Discharge Assessment Last Done: 11/03/22 22:14 Discharge Date/Time: 11/03/22 22:16 Print Language: Thai
[2022-11-03 18:54] VITALS: BP 135/64; PULSE 101; RESP 18; TEMP 36.3
[2022-11-03 19:40] VITALS: BP 121/79; PULSE 81; RESP 16; TEMP 36.4; O2SAT 96
--- NOTE | 2022-11-03 20:13 | MHC.CARE ---
CARE Team received a NIKHIL consult for pt who reports he accidentally overdosed on heroin. Pt states his mother found him. He reports he relapsed on heroin but has not done drugs in a while. He is known to the CARE Team for psychiatric purposes but did not present with any psychiatric sx's. Pt was clear and linear. Pt denies SI/HI/AH/VH. He does not want any assistance with detox or recovery services. Pt is requesting to go home at this time, plan is discussed with ED provider Nikolas Narayanan
[2022-11-03 22:15] VITALS: BP 135/69; PULSE 75; RESP 18; TEMP 37; O2SAT 98
== END 2022-11-03 22:16 | disposition home or self-care (01) ==
PROVIDERS: Emergency Provider Emergency Medicine; PCP Nurse Practitioner Family
DX: F19.10 Other psychoactive substance abuse, uncomplicated (principal)
CPT/HCPCS: 99284

== ENCOUNTER 2022-12-21 08:27 | Emergency (ER) | payer OTHER, SELFPAY ==
[2022-12-21] VITALS (7 sets, daily range): BP systolic 86–114; BP diastolic 42–75; PULSE 74–114; RESP 14–19; TEMP 36.2–37.1; O2SAT 97–100; BMI 20.2
--- NOTE | 2022-12-21 08:42 | ED.OVERDOSE ---
HPI - Overdose General Chief Complaint: Overdose Stated Complaint: overdose narcan given Time Seen by Provider: 12/21/22 08:33 Source: EMS Mode of arrival: EMS Limitations: altered mental status History of Present Illness HPI Narrative: 27-year-old male brought to emergency department by ambulance for altered mental status possible drug overdose. According to the paramedics, patient was found in a room, unresponsive after using heroin. Patient was minimally responsive when 1st responders arrived. Patient received intranasal Narcan x2 doses from the 1st responders and intranasal Narcan x2 doses from the paramedics. Paramedics states patient woke up and his respiratory status improved however the patient remains altered, he is moaning, he is not responding to verbal stimuli, he is responding to painful stimuli, moaning. Paramedics reported that the patient's O2 saturation was in the low 90s in on non-rebreather he went up to 97%. Patient's blood care glucose here in the emergency department was 267. Patient was seen in the emergency department on 11/03/2022 for accidental overdose after he reported taking heroin, fentanyl and cocaine. He has had multiple urine drug screens in the past which have been positive for fentanyl, opiates, benzodiazepines, cocaine, marijuana. Related Data Home Medications Medication Instructions Recorded Confirmed omeprazole magnesium 20 mg 20 mg PO DAILY 07/20/22 08/17/22 tablet,delayed release (Prilosec OTC) Previous Rx's Medication Instructions Recorded levetiracetam 500 mg tablet 1,000 mg PO BID 30 days #120 tabs 07/20/22 cephalexin 500 mg capsule 500 mg PO TID 5 days #15 caps 08/07/22 doxycycline monohydrate 100 mg 100 mg PO BID 7 days #14 caps 08/17/22 capsule escitalopram oxalate 20 mg tablet 20 mg PO DAILY 90 days #90 tabs 11/05/22 (Lexapro) Allergies Allergy/AdvReac Type Severity Reaction Status Date / Time sertraline [Zoloft] AdvReac Unknown RESTLESSNES Verified 11/03/22 18:26 S Review of Systems Review of Systems: Yes Unobtainable due to mental status PMFSH Past Medical History Medical History Esophageal dilatation Motility disorder, esophageal Polysubstance abuse Psychosis Surgical History Hx of endoscopy Social History Social History Household Members: Family Housing: House Do you presently have visiting nurse or other home services: No Unable to assess alcohol history related to: Unknown Alcohol intake: unknown Patient Tobacco Use Status: Never used Tobacco Smoked in Last 30 Days: Yes e-Cigarette/Vaping Use: Never Used Second Hand Smoke Exposure: Yes Use of substances other than those prescribed or required for medical reasons: Yes Substance Use Type: Heroin and Opiates Advance Directives: No Advance Directives Information Provided: No service: No Current occupational status: employed Current occupation: [employer] Sexual orientation: Don't Know Cognitive needs: No Hearing needs: No Vision needs: No Physical Exam Vital Signs: Vital Signs: Last Vital Signs Temp 97.9 F 12/21/22 14:30 Pulse 84 12/21/22 14:30 Resp 14 12/21/22 14:30 BP 99/64 12/21/22 14:30 Pulse Ox 98 12/21/22 14:30 O2 Del Method Room Air 12/21/22 14:30 O2 Flow Rate 8 12/21/22 10:38 BMI result Body Mass Index 20.2 General: Very thin, male patient, moaning, not responding to verbal stimuli, moves his extremities spontaneously, responding to painful stimuli on HEENT: Head is normal cephalic and atraumatic, pupils were dilated symmetrically, reactive to light, mouth revealed moist membranes. Neck: Supple Lungs: Diminished breath sounds at the bases, no wheezing, rales or rhonchi Heart: Tachycardia, normal S1-S2, no murmurs rubs or gallops Abdomen: Soft, nondistended, normoactive bowel sounds, no tenderness Back: No tender Extremities: No obvious trauma, patient is moving extremities spontaneous Neuro: Patient is altered, moaning, not responding to verbal stimuli, does appropriately withdraw extremity to pain Medications Administered Discontinued Medications Generic Name Dose Route Start Last Admin Trade Name Freq PRN Reason Stop Dose Admin Sodium Chloride 1,000 mls @ 999 mls/hr 12/21/22 08:33 12/21/22 10:18 Ns IV 12/21/22 09:33 Infused .Q1H1M STA Infusion Sodium Chloride 1,000 mls @ 999 mls/hr 12/21/22 11:10 12/21/22 13:00 Ns IV 12/21/22 12:10 Infused .Q1H1M STA Infusion Ceftriaxone Sodium 1 gm/ 50 mls @ 100 mls/hr 12/21/22 11:26 12/21/22 13:20 Sodium Chloride IV 12/21/22 11:55 Infused ONCE ONE Infusion Ketorolac Tromethamine 15 mg 12/21/22 12:29 12/21/22 12:51 Ketorolac Tromethamine 15 Mg/Ml Vial IVPUSH 12/21/22 12:30 15 mg ONCE STA Administration Naloxone HCl 2 mg 12/21/22 08:33 12/21/22 09:34 Naloxone Hcl 2 Mg/2 Ml Syringe IVPUSH 12/21/22 08:34 2 mg ONCE ONE Administration Ondansetron HCl 4 mg 12/21/22 11:45 12/21/22 11:54 Ondansetron Hcl 4 Mg/2 Ml Vial IVPUSH 12/21/22 11:46 4 mg ONCE ONE Administration Medical Decision Making Medical Decision Making MDM Narrative: 27-year-old male with a known history of polysubstance use disorder who was found unresponsive in a room, was treated with 4 doses of intranasal Narcan which improved his respiratory status and his level of consciousness. On presentation the patient is awake, he is moaning, he is not responding to verbal stimuli but is responding to painful stimuli. I ordered the following tests: CBC, CMP, BNP, troponin, PT/INR, PTT, lipase, lactic acid, blood cultures x2, CPK, EKG, chest x-ray. Patient will be treated with another dose of Narcan 2 mg IV to see if this improves his level consciousness. Is also ordered to get normal saline x1 L. 1546: Patient's laboratory evaluation revealed an elevated WBC, elevated CK, elevated AST and ALT, elevated lactic. These elevations are not secondary to an infectious process but rather secondary to hypoventilation and respiratory acidosis/stress reaction. The patient did complain of abdominal pain in the CT scan of his abdomen pelvis did not reveal a clear cause for his pain. Patient is feeling significantly better after receiving IV Toradol. Patient was seen by our control and recovery combat rescue but the patient was in pain at the time. The patient does want a SUDE exam therefore will keep him here until he can be read evaluate Differential Diagnosis 1546: Differential diagnosis includes was not limited to opiate overdose, alcohol intoxication, benzodiazepine overdose, anoxic brain injury, electrolyte abnormality, anemia Admission/Observation Consideration of admission/observation: Escalation of care including admission/observation considered Lab Data MDM Lab Attestation statement: I reviewed the patient's lab results. My interpretation patient's laboratory evaluation is as follows: WBC elevated 16,900 most likely caused by demargination/stress rxn, BUN was normal at 17, creatinine elevated 2.34. Glucose elevated 162. CK elevated 341. Lactic acid elevated 8.9-this is not caused by infection but most likely secondary to respiratory acidosis ETOH below detectable limits, urine tox screen is positive for opiates, fentanyl, cocaine and THC. 12/21/22 09:22 12/21/22 09:22 Labs: Lab Results 12/21/22 12/21/22 12/21/22 Range/Units 08:35 09:22 09:22 WBC 16.9 H (4.8-10.8) X10*3/uL RBC 4.79 (4.60-5.80) X10*6/uL Hgb 13.8 L (14.0-18.0) g/dl Hct 46.6 (42.0-52.0) % MCV 97.3 (80.0-98.0) fL MCH 28.8 (27.0-33.0) pg MCHC 29.6 L (31.0-36.0) g/dl RDW 12.2 (11.0-16.0) % Plt Count 281 (160-400) X10*3/uL MPV 9.5 (9.4-12.4) fL Immature Gran % (Auto) 0.7 H (0.0-0.4) % Neut % (Auto) 89.2 H (45-73) % Lymph % (Auto) 3.1 L (20-40) % Ford % (Auto) 6.6 (2-11) % Eos % (Auto) 0.1 (0-4) % Baso % (Auto) 0.3 (0-2) % Lymph # (Auto) 0.5 L (1.2-4.9) X10*3/uL [place] # (Auto) 1.1 (0.1-1.2) X10*3/uL Eos # (Auto) 0.0 (0.0-0.4) X10*3/uL Baso # (Auto) 0.1 (0.0-0.2) X10*3/uL Abs Immat Gran (auto) 0.11 H (0.00-0.03) X10*3/uL Absolute Neuts (auto) 15.1 H (2.0-8.3) x10*3/uL Absolute Nucleated RBC 0.000 (0.0-0.012) X10*3/uL Nucleated RBC % (auto) 0.0 (0.0-0.2) /100WBC PT (10.0-13.1) SEC INR (0.9-1.1) APTT (26.0-36.4) SEC Sodium 139 (135-145) mmol/L Potassium 4.3 (3.3-5.1) mmol/L Chloride 105 (96-108) mmol/L Carbon Dioxide 12 L (22-29) mmol/L Anion Gap 26 H (12-20) BUN 17 H (9-16) mg/dL Creatinine 2.34 H (0.5-1.4) mg/dL Estim Creat Clear Calc 38.0 Estimated GFR 34 POC Glucose 267 H (60-115) mg/dL Random Glucose 162 H (60-115) mg/dL Lactic Acid (0.5-2.0) mmol/L Lactic Acid F/U @ 2Hr (0.5-2.0) mmol/L Calcium 8.6 D (8.4-10.2) mg/dL Total Bilirubin 0.5 (0.0-1.0) mg/dL AST 399 H (5-37) U/L ALT 416 H (0-40) U/L Alkaline Phosphatase 89 (39-117) U/L Total Creatine Kinase 341 H (38-174) U/L B-Natriuretic Peptide (<100) pg/mL Total Protein 7.3 (6.5-8.0) g/dL Albumin 3.9 (3.5-5.0) g/dL Lipase 64 (8-78) U/L Urine Color Urine Appearance Urine pH (5.0-9.0) Ur Specific [place] (1.005-1.025) Urine Protein (Neg-Trace) mg/dL Urine Glucose (UA) (Negative) mg/dL Urine Ketones (Negative) mg/dL Urine Blood (Negative) Urine Nitrite (Negative) Ur Leukocyte Esterase (Negative) Urine RBC (0-2) /HPF Urine WBC (0-5) /HPF Ur Squamous Epith Cells (0-2) /HPF Urine Bacteria (None Seen) Hyaline Casts (0-2) /LPF Granular Casts Urine Opiates Screen (Not Detect) Urine Fentanyl Screen (Not Detect) Ur Barbiturates Screen (Not Detect) Ur Phencyclidine Scrn (Not Detect) Ur Amphetamines Screen (Not Detect) U Benzodiazepines Scrn (Not Detect) Urine Cocaine Screen (Not Detect) U Marijuana (THC) Screen (Not Detect) Ethyl Alcohol < 10 mg/dL COVID-19 (ED) (Negative) COVID-19 Clin Com 12/21/22 12/21/22 12/21/22 Range/Units 09:22 09:22 09:31 WBC (4.8-10.8) X10*3/uL RBC (4.60-5.80) X10*6/uL Hgb (14.0-18.0) g/dl Hct (42.0-52.0) % MCV (80.0-98.0) fL MCH (27.0-33.0) pg MCHC (31.0-36.0) g/dl RDW (11.0-16.0) % Plt Count (160-400) X10*3/uL MPV (9.4-12.4) fL Immature Gran % (Auto) (0.0-0.4) % Neut % (Auto) (45-73) % Lymph % (Auto) (20-40) % Ford % (Auto) (2-11) % Eos % (Auto) (0-4) % Baso % (Auto) (0-2) % Lymph # (Auto) (1.2-4.9) X10*3/uL [place] # (Auto) (0.1-1.2) X10*3/uL Eos # (Auto) (0.0-0.4) X10*3/uL Baso # (Auto) (0.0-0.2) X10*3/uL Abs Immat Gran (auto) (0.00-0.03) X10*3/uL Absolute Neuts (auto) (2.0-8.3) x10*3/uL Absolute Nucleated RBC (0.0-0.012) X10*3/uL Nucleated RBC % (auto) (0.0-0.2) /100WBC PT (10.0-13.1) SEC INR (0.9-1.1) APTT (26.0-36.4) SEC Sodium (135-145) mmol/L Potassium (3.3-5.1) mmol/L Chloride (96-108) mmol/L Carbon Dioxide (22-29) mmol/L Anion Gap (12-20) BUN (9-16) mg/dL Creatinine (0.5-1.4) mg/dL Estim Creat Clear Calc Estimated GFR POC Glucose (60-115) mg/dL Random Glucose (60-115) mg/dL Lactic Acid 8.9 H* (0.5-2.0) mmol/L Lactic Acid F/U @ 2Hr (0.5-2.0) mmol/L Calcium (8.4-10.2) mg/dL Total Bilirubin (0.0-1.0) mg/dL AST (5-37) U/L ALT (0-40) U/L Alkaline Phosphatase (39-117) U/L Total Creatine Kinase (38-174) U/L B-Natriuretic Peptide 15 (<100) pg/mL Total Protein (6.5-8.0) g/dL Albumin (3.5-5.0) g/dL Lipase (8-78) U/L Urine Color Urine Appearance Urine pH (5.0-9.0) Ur Specific [place] (1.005-1.025) Urine Protein (Neg-Trace) mg/dL Urine Glucose (UA) (Negative) mg/dL Urine Ketones (Negative) mg/dL Urine Blood (Negative) Urine Nitrite (Negative) Ur Leukocyte Esterase (Negative) Urine RBC (0-2) /HPF Urine WBC (0-5) /HPF Ur Squamous Epith Cells (0-2) /HPF Urine Bacteria (None Seen) Hyaline Casts (0-2) /LPF Granular Casts Urine Opiates Screen (Not Detect) Urine Fentanyl Screen (Not Detect) Ur Barbiturates Screen (Not Detect) Ur Phencyclidine Scrn (Not Detect) Ur Amphetamines Screen (Not Detect) U Benzodiazepines Scrn (Not Detect) Urine Cocaine Screen (Not Detect) U Marijuana (THC) Screen (Not Detect) Ethyl Alcohol mg/dL COVID-19 (ED) Negative (Negative) COVID-19 Clin Com See Note 12/21/22 12/21/22 12/21/22 Range/Units 09:43 09:43 10:19 WBC (4.8-10.8) X10*3/uL RBC (4.60-5.80) X10*6/uL Hgb (14.0-18.0) g/dl Hct (42.0-52.0) % MCV (80.0-98.0) fL MCH (27.0-33.0) pg MCHC (31.0-36.0) g/dl RDW (11.0-16.0) % Plt Count (160-400) X10*3/uL MPV (9.4-12.4) fL Immature Gran % (Auto) (0.0-0.4) % Neut % (Auto) (45-73) % Lymph % (Auto) (20-40) % Ford % (Auto) (2-11) % Eos % (Auto) (0-4) % Baso % (Auto) (0-2) % Lymph # (Auto) (1.2-4.9) X10*3/uL [place] # (Auto) (0.1-1.2) X10*3/uL Eos # (Auto) (0.0-0.4) X10*3/uL Baso # (Auto) (0.0-0.2) X10*3/uL Abs Immat Gran (auto) (0.00-0.03) X10*3/uL Absolute Neuts (auto) (2.0-8.3) x10*3/uL Absolute Nucleated RBC (0.0-0.012) X10*3/uL Nucleated RBC % (auto) (0.0-0.2) /100WBC PT 13.1 (10.0-13.1) SEC INR 1.1 (0.9-1.1) APTT 27.6 (26.0-36.4) SEC Sodium (135-145) mmol/L Potassium (3.3-5.1) mmol/L Chloride (96-108) mmol/L Carbon Dioxide (22-29) mmol/L Anion Gap (12-20) BUN (9-16) mg/dL Creatinine (0.5-1.4) mg/dL Estim Creat Clear Calc Estimated GFR POC Glucose (60-115) mg/dL Random Glucose (60-115) mg/dL Lactic Acid (0.5-2.0) mmol/L Lactic Acid F/U @ 2Hr (0.5-2.0) mmol/L Calcium (8.4-10.2) mg/dL Total Bilirubin (0.0-1.0) mg/dL AST (5-37) U/L ALT (0-40) U/L Alkaline Phosphatase (39-117) U/L Total Creatine Kinase (38-174) U/L B-Natriuretic Peptide (<100) pg/mL Total Protein (6.5-8.0) g/dL Albumin (3.5-5.0) g/dL Lipase (8-78) U/L Urine Color Yellow Urine Appearance Cloudy Urine pH 6.0 (5.0-9.0) Ur Specific [place] 1.010 (1.005-1.025) Urine Protein 100 (2+) H (Neg-Trace) mg/dL Urine Glucose (UA) 250 H (Negative) mg/dL Urine Ketones Trace (Negative) mg/dL Urine Blood Moderate (2+) H (Negative) Urine Nitrite Negative (Negative) Ur Leukocyte Esterase Negative (Negative) Urine RBC 0-2 (0-2) /HPF Urine WBC 21-50 H (0-5) /HPF Ur Squamous Epith Cells 6-10 (0-2) /HPF Urine Bacteria Trace (None Seen) Hyaline Casts 11-20 (0-2) /LPF Granular Casts Present Urine Opiates Screen POSITIVE H (Not Detect) Urine Fentanyl Screen POSITIVE H (Not Detect) Ur Barbiturates Screen Not Detected (Not Detect) Ur Phencyclidine Scrn Not Detected (Not Detect) Ur Amphetamines Screen Not Detected (Not Detect) U Benzodiazepines Scrn POSITIVE H (Not Detect) Urine Cocaine Screen POSITIVE H (Not Detect) U Marijuana (THC) Screen POSITIVE H (Not Detect) Ethyl Alcohol mg/dL COVID-19 (ED) (Negative) COVID-19 Clin Com 07/03/23 Range/Units 13:03 WBC (4.8-10.8) X10*3/uL RBC (4.60-5.80) X10*6/uL Hgb (14.0-18.0) g/dl Hct (42.0-52.0) % MCV (80.0-98.0) fL MCH (27.0-33.0) pg MCHC (31.0-36.0) g/dl RDW (11.0-16.0) % Plt Count (160-400) X10*3/uL MPV (9.4-12.4) fL Immature Gran % (Auto) (0.0-0.4) % Neut % (Auto) (45-73) % Lymph % (Auto) (20-40) % [place] % (Auto) (2-11) % Eos % (Auto) (0-4) % Baso % (Auto) (0-2) % Lymph # (Auto) (1.2-4.9) X10*3/uL [place] # (Auto) (0.1-1.2) X10*3/uL Eos # (Auto) (0.0-0.4) X10*3/uL Baso # (Auto) (0.0-0.2) X10*3/uL Abs Immat Gran (auto) (0.00-0.03) X10*3/uL Absolute Neuts (auto) (2.0-8.3) x10*3/uL Absolute Nucleated RBC (0.0-0.012) X10*3/uL Nucleated RBC % (auto) (0.0-0.2) /100WBC PT (10.0-13.1) SEC INR (0.9-1.1) APTT (26.0-36.4) SEC Sodium (135-145) mmol/L Potassium (3.3-5.1) mmol/L Chloride (96-108) mmol/L Carbon Dioxide (22-29) mmol/L Anion Gap (12-20) BUN (9-16) mg/dL Creatinine (0.5-1.4) mg/dL Estim Creat Clear Calc Estimated GFR POC Glucose (60-115) mg/dL Random Glucose (60-115) mg/dL Lactic Acid (0.5-2.0) mmol/L Lactic Acid F/U @ 2Hr 3.7 H* (0.5-2.0) mmol/L Calcium (8.4-10.2) mg/dL Total Bilirubin (0.0-1.0) mg/dL AST (5-37) U/L ALT (0-40) U/L Alkaline Phosphatase (39-117) U/L Total Creatine Kinase (38-174) U/L B-Natriuretic Peptide (<100) pg/mL Total Protein (6.5-8.0) g/dL Albumin (3.5-5.0) g/dL Lipase (8-78) U/L Urine Color Urine Appearance Urine pH (5.0-9.0) Ur Specific [place] (1.005-1.025) Urine Protein (Neg-Trace) mg/dL Urine Glucose (UA) (Negative) mg/dL Urine Ketones (Negative) mg/dL Urine Blood (Negative) Urine Nitrite (Negative) Ur Leukocyte Esterase (Negative) Urine RBC (0-2) /HPF Urine WBC (0-5) /HPF Ur Squamous Epith Cells (0-2) /HPF Urine Bacteria (None Seen) Hyaline Casts (0-2) /LPF Granular Casts Urine Opiates Screen (Not Detect) Urine Fentanyl Screen (Not Detect) Ur Barbiturates Screen (Not Detect) Ur Phencyclidine Scrn (Not Detect) Ur Amphetamines Screen (Not Detect) U Benzodiazepines Scrn (Not Detect) Urine Cocaine Screen (Not Detect) U Marijuana (THC) Screen (Not Detect) Ethyl Alcohol mg/dL COVID-19 (ED) (Negative) COVID-19 Clin Com Independent Interpretation I performed an independent interpretation of an: EKG Interpretation: My interpretation patient's 12 EKG done on at 08:41 hours is as follows: Sinus tachycardia with a rate of 108, normal ND interval, QRS duration. Prolonged QTC interval 485 milliseconds. Patient has J-point elevation in V3 through V6 with ST segment elevation V1 and V2 approximately 1 mm in V1 and 2 mm in V2. Compared to EKG dated 01/23/2022 the J-point elevation in V3 through V6 is unchanged, the complex in V1 and V2 is different. Radiology Impression Discussion of test interpretation with radiology: I have reviewed the radiologist's reading. Radiologist Impression: CT/CT abdomen pelvis wo IV con IMPRESSION: 1. No acute intra-abdominal/pelvic abnormality to explain the patient's pain. 2. Several small groundglass nodules in the right lower lobe with tree-in-bud appearance are nonspecific, but suggest an infectious/inflammatory process. Following Fleischner Society guidelines, no imaging follow-up is recommended at this time. Short-term monitoring with chest radiographs is recommended as clinically indicated. 3. Mildly distended urinary bladder containing a Bailey catheter without significant associated abnormality. Dictated By:Perico Ojeda MD Discharge Plan Discharge Clinical Impression: Opiate overdose, Fentanyl use disorder, severe, Cocaine abuse Patient Disposition: Home, Self-Care Additional Instructions: Your urine tox screen was positive for fentanyl, cocaine, heroin and marijuana. The CT scan of your abdomen and pelvis did not reveal a clear cause for your pain. I suspect that the pain was caused from your overdose. Please follow the recommendations from the control and recovery combat rescue Follow-up with your doctor in 2 days. Please return to the emergency department if your symptoms get worse or if you develop any symptoms that are concerning to you. Prescriptions: No Action escitalopram oxalate [Lexapro] 20 mg tablet 20 mg PO DAILY 90 Days Qty: 90 1RF cephalexin 500 mg capsule 500 mg PO TID 5 Days Qty: 15 0RF omeprazole magnesium [Prilosec OTC] 20 mg tablet,delayed release (DR/EC) 20 mg PO DAILY levetiracetam 500 mg tablet 1,000 mg PO BID 30 Days Qty: 120 2RF doxycycline monohydrate 100 mg capsule 100 mg PO BID 7 Days Qty: 14 0RF
--- NOTE | 2022-12-21 09:05 | PC.NURSE ---
pt n/v extra lg amount of yellow vomitus with food particles. hob, pt changed. pt is a little bit more responsive that when he came in. response to painful stimuli and keeps mumbling. pupil continues to be dilated.
--- NOTE | 2022-12-21 09:23 | PC.NURSE ---
per mother (angeles graham, ). pt's mother states that she is not sure if pt had a seizure or od. mother states that she found pt unresponsive in his room at home. mother to visit.
--- NOTE | 2022-12-21 09:48 | MHC.EDTECH ---
pt belongings taken by security to de[facility]
--- NOTE | 2022-12-21 10:19 | PC.NURSE ---
pt's father is at bedside.
--- NOTE | 2022-12-21 11:02 | MHC.EDTECH ---
changed patients linens and gown, head of bed elevated, vitals rechecked and seizure pads put in place.
--- NOTE | 2022-12-21 11:02 | PC.NURSE ---
PT CONTINUES TO BE OBTUNDED. MUMBLING/MOANING. FATHER AT BEDSIDE. CONTINUES WITH OXYMASK.
--- NOTE | 2022-12-21 12:05 | PC.NURSE ---
PT IS NOW A/O X 4 CONVERSING WITH HIS FATHER AT BEDSIDE. PT N/V X 1 AGAIN SMALL AMT OF YELLOW VOMITUS. AWARE.
--- NOTE | 2022-12-21 12:48 | HO.SUDE ---
Met with pt in ED22 after pt presented for accidental overdose. Pts father present, pt agreeable to father staying for conversation. Pt sitting in bed, awake, alert, difficult to engage in conversation. Pt very soft spoken, t/w had to ask pt to repeat self numerous times. Pt reports using 1 bag heroin, [place], today which resulted in overdose. Pt reports this is second overdose, first one in October. Pt reports similar circumstance in October. Had not been using regularly, used one bag which resulted in overdose. Pt reports two years ago he was prescribed Suboxone, states it wasn't a good experience. Pt not interested in MOUD or other recovery supports. Pt reports one ATS admission in [place]. Pt denies questions or concerns for t/w. Pt being brought for CT. T/w available if needed.
--- NOTE | 2022-12-21 12:49 | PC.NURSE ---
attempted to draw lactic on pt. PT refusing until he gets pain meds.
--- NOTE | 2022-12-21 15:08 | PC.NURSE ---
combs cath d/c'd per . urinary output was 400ml clear yellow, odor free urine. pt is continues to be a/o x 4, eating saltine crackers and drinking nadine ligia.
--- NOTE | 2022-12-21 16:46 | MHC.RECOVSUP ---
Followed up with pt in ED22 for recovery support. Pt informs he is not interested in recovery supports at this time and is focused on finding a therapist.
--- NOTE | 2022-12-21 18:09 | MHC.RECOVSUP ---
? Reason for consult Recovery Support o Current location: ED22 o Identified substance use concern: Fentanyl - Overdose - Support ? Intervention: o Community resources provided o Harm reduction discussion ? Plan: o Patient to follow up with [facility] after discharge ? Additional information: MET WITH PATIENT AND WE TALK ABOUT RECOVERY AND HARM REDUCTION.. PATIENT DOES NOT WANT ANY SERVICE BUT Did listen and had a understanding about recovery... But said that he would check out [facility] for [place]..
== END 2022-12-21 18:40 | disposition home or self-care (01) ==
PROVIDERS: Emergency Provider Emergency Medicine Emergency Medical Services; PCP Nurse Practitioner Family
DX: R40.4 Transient alteration of awareness (principal); R00.0 Tachycardia, unspecified; T40.1X1A Poisoning by heroin, accidental (unintentional), initial encounter; F12.10 Cannabis abuse, uncomplicated; Y92.9 Unspecified place or not applicable; R10.9 Unspecified abdominal pain; R11.2 Nausea with vomiting, unspecified; Z20.822 Contact with and (suspected) exposure to COVID-19
CPT/HCPCS: 36415; 71045; 74176; 80053; 80307; 81001; 82550; 82947; 83605; 83690; 83880; 85025; 85610; 85730; 87040; 87086; 87635; 87798; 87801; 93005; 96361; 96365; 96375; 99285; J0696; J1885; J2405

== ENCOUNTER 2023-01-04 16:11 | Outpatient (AMB) | payer OTHER, SELFPAY ==
--- NOTE | 2023-01-04 16:46 | AM.OFFWIN_ITS ---
Intake Vital Signs 01/04/23 16:48 Height 5 ft 7 in BP 100/58 L Blood Pressure Location Lt brachial Position Sitting Pulse 66 Pulse Source Pulse Oximeter Temp 97.2 F Temp Source Temporal Artery Scan Pulse Oximetry (%) 100 Intake Visit Reasons: EP, seizure med side effect, body jerks Intake Note: pt is here for c/o seizure medication causing patient to have body jerks, and memory issues Patient Tobacco Use Status: Never used Tobacco Allergies sertraline [Zoloft] Adverse Reaction (Unknown, Verified 01/07/23 06:49) RESTLESSNESS Medication List - Last Reconciled 01/07/23 by Jhoan Rivera MD escitalopram oxalate (Lexapro) 20 mg PO DAILY 90 days levetiracetam 1,000 mg (2 x 500 mg) PO BID 30 days omeprazole magnesium (Prilosec OTC) 20 mg PO DAILY Do you need a note to return to daycare/school/sports/work: No HPI EP, seizure med side effect, body jerks HPI Details 28-year-old male presents to the office for a sick visit. Patient is requesting that his Lamictal medications be changed. He is having spasmodic, sudden jerky movements in the hands and forearms. He believes it is due to the Lamictal. He called the neurologist this morning and they have not called him back. [facility] Medical History Esophageal dilatation Motility disorder, esophageal Polysubstance abuse Psychosis Surgical History Hx of endoscopy Social History Household Members: Family Housing: House Do you presently have visiting nurse or other home services: No Unable to assess alcohol history related to: Unknown Alcohol intake: unknown Patient Tobacco Use Status: Never used Tobacco e-Cigarette/Vaping Use: Never Used Second Hand Smoke Exposure: Yes Substance Use Type: Heroin and Opiates service: No Current occupational status: employed Current occupation: rt hand /liquor store Sexual orientation: Don't Know Cognitive needs: No Hearing needs: No Vision needs: No Physical Exam Vital Signs: Last Vital Signs Temp 97.2 F 01/04/23 16:48 Pulse 66 01/04/23 16:48 BP 100/58 L 01/04/23 16:48 Pulse Ox 100 01/04/23 16:48 Const General: cooperative and healthy appearing Nutritional Appearance: well nourished Orientation/consciousness: patient oriented x3 Limitations: no limitations HEENT Head: Yes normal to inspection Eyes General: appearance normal, both eyes and all related structures Neck Neck: Yes normal visual inspection Chest Chest palpation & inspection: normal palpation of entire chest wall Resp Effort & Inspection: normal respiratory effort Neuro General: patient oriented x3 Assessment & Plan Assessment & Plan (1) Seizure: Code(s): R56.9 - Unspecified convulsions Plan: During the 15 minutes office visit, he did not have any jerky movements he was d escribing. I declined to change his seizure medications as it is outside the scope of practice for the clinic. He was advised to call his primary care or neurologist. Coding Level of Care Code Est Pt Level 3 (14971) Diagnoses Seizure R56.9
[2023-01-04 16:48] VITALS: BP 100/58; PULSE 66; TEMP 36.2; O2SAT 100
== END 2023-01-04 17:09 | disposition home or self-care (01) ==
PROVIDERS: PCP Nurse Practitioner Family; Visit Provider Internal Medicine
DX: R56.9 Unspecified convulsions (principal)
CPT/HCPCS: 99213

== ENCOUNTER 2023-01-12 01:52 | Emergency (ER) | payer OTHER, SELFPAY ==
[2023-01-12 01:55] VITALS: BP 112/72; PULSE 78; O2SAT 99
[2023-01-12 01:58] VITALS: BP 104/61; PULSE 77; RESP 16; TEMP 36.4; O2SAT 97; BMI 27.4
[2023-01-12 02:06] VITALS: BP 104/61; PULSE 80; RESP 18; TEMP 36.6; O2SAT 99
--- NOTE | 2023-01-12 02:18 | PC.NURSE ---
Assumed caer of pt. Pt AxO x4, speech slurred. Endorsing use of cocaine this pm, and may have taken ambien. Pt denies other drug use. Sts recently tapered off anti seizure medication per his neurologist. VSS at this time
[2023-01-12 03:03] VITALS: BP 105/62; PULSE 84; RESP 16; TEMP 36.6; O2SAT 95
--- NOTE | 2023-01-12 03:44 | PC.NURSE ---
Rcvd call from person identifying as pt mother requesting status update. Informed her that pt was sleeping, no acute distress and we would let him know she called when he woke up.
--- NOTE | 2023-01-12 03:46 | ED.OVERDOSE ---
HPI - Overdose General Chief Complaint: Overdose Stated Complaint: OD Time Seen by Provider: 01/12/23 03:46 Source: patient Mode of arrival: ambulatory Limitations: no limitations History of Present Illness HPI Narrative: With history of cocaine and opiate abuse was seen here on 12/21 with overdose urine showed opiates fentanyl benzo cocaine and marijuana today again patient was found unresponsive with pinpoint pupil responded to Narcan admits that he used only cocaine total want any help Related Data Home Medications Medication Instructions Recorded Confirmed omeprazole magnesium 20 mg 20 mg PO DAILY 07/20/22 08/17/22 tablet,delayed release (Prilosec OTC) Previous Rx's Medication Instructions Recorded levetiracetam 500 mg tablet 1,000 mg PO BID 30 days #120 tabs 07/20/22 escitalopram oxalate 20 mg tablet 20 mg PO DAILY 90 days #90 tabs 11/05/22 (Lexapro) Allergies Allergy/AdvReac Type Severity Reaction Status Date / Time sertraline [Zoloft] AdvReac Unknown RESTLESSNES Verified 01/12/23 02:00 S Review of Systems Review of Systems: Yes all other systems are reviewed and are negative PMFSH Past Medical History Medical History Esophageal dilatation Motility disorder, esophageal Polysubstance abuse Psychosis Surgical History Hx of endoscopy Social History Social History Household Members: Family Housing: House Do you presently have visiting nurse or other home services: No Unable to assess alcohol history related to: Unknown Alcohol intake: never Patient Tobacco Use Status: Never used Tobacco Smoked in Last 30 Days: No e-Cigarette/Vaping Use: Never Used Second Hand Smoke Exposure: Yes Use of substances other than those prescribed or required for medical reasons: Yes Substance Use Type: Crack/Cocaine Substance Use Frequency: Occasionally Advance Directives: No Advance Directives Information Provided: Yes service: No Current occupational status: employed Current occupation: [employer] Sexual orientation: Don't Know Cognitive needs: No Hearing needs: No Vision needs: No Physical Exam Vital Signs: Vital Signs: Last Vital Signs Temp 97.9 F 01/12/23 03:03 Pulse 84 01/12/23 03:03 Resp 16 01/12/23 03:03 BP 105/62 01/12/23 03:03 Pulse Ox 95 01/12/23 03:03 O2 Del Method Room Air 01/12/23 03:03 BMI result Body Mass Index 27.4 Appearance: Alert. Oriented X3. No acute distress. Eyes: PERRLA, No Nystagmus ENT: Pharynx normal. Oral Mucosa moist atraumatic normocephalic Neck: Normal inspection. Neck supple. CVS: Normal heart rate and rhythm. Pulses normal. Respiratory: No respiratory distress. Equal air entry bilateral, no wheezing/rales/rhonchi Abdomen: Soft and nontender. Bowel sounds are present, no mass palpable, no CVA tenderness Skin: Skin warm and dry. Normal skin color. Normal skin turgor. Extremities: No lower extremity edema. No calf tenderness Neuro: Oriented X 3. No motor deficit. No sensory deficit.No cerebellar signs , cranial nerves II-XII intact Discharge Plan Discharge Clinical Impression: Polysubstance abuse Patient Disposition: Home, Self-Care Instructions: Polysubstance Abuse (ED) Additional Instructions: Follow up with detox Prescriptions: No Action escitalopram oxalate [Lexapro] 20 mg tablet 20 mg PO DAILY 90 Days Qty: 90 1RF omeprazole magnesium [Prilosec OTC] 20 mg tablet,delayed release (DR/EC) 20 mg PO DAILY levetiracetam 500 mg tablet 1,000 mg PO BID 30 Days Qty: 120 2RF
[2023-01-12 05:49] VITALS: BP 95/49; PULSE 72; RESP 18; TEMP 36.6; O2SAT 94
== END 2023-01-12 05:58 | disposition home or self-care (01) ==
PROVIDERS: Emergency Provider Internal Medicine
DX: R40.4 Transient alteration of awareness (principal); T50.991A Poisoning by other drugs, medicaments and biological substances, accidental (unintentional), initial encounter; Y92.9 Unspecified place or not applicable; F19.10 Other psychoactive substance abuse, uncomplicated
CPT/HCPCS: 99285

== ENCOUNTER 2023-01-12 13:28 | Outpatient (REF) | payer OTHER, SELFPAY ==
--- NOTE | 2023-01-12 13:00 | EEG_ITS ---
PROCEDURE: 24-hour ambulatory EEG. FINDINGS: The waking background activity consists of a well-defined moderate voltage posterior 10 to 11 hertz alpha frequency that is seen symmetrically and attenuates well with eye opening while low voltage fast frequencies predominate anteriorly. Drowsiness is characterized by diffuse theta slowing. During stage 1 and 2, symmetrical vertex sharp transients and K-complexes and sleep spindles develop over both hemispheres. Deeper stages of sleep are not recorded. Towards the end of the record, the leads have been pulled off from the right hemisphere. Arousals are unremarkable. No diarrhea is kept, and there are no paroxysmal discharges IMPRESSION: This 24-hour ambulatory EEG is within normal limits with limitations of artifacts from electrodes being pulled towards the end of the study. The patient remained asymptomatic. MD JEAN Castro/JF / [id number]
== END 2023-01-12 13:29 | disposition home or self-care (01) ==
LOC: HO.NEURO 13:28
PROVIDERS: Visit Provider Psychiatry & Neurology Neurology
DX: G40.909 Epilepsy, unspecified, not intractable, without status epilepticus (principal)
CPT/HCPCS: 95708

== ENCOUNTER 2023-02-11 14:32 | Outpatient (REF) | payer OTHER, SELFPAY ==
[2023-02-11 16:08] LABS: MANUAL DIFF FLAG NO
[2023-02-11 16:13] LABS: Basophils Percent Auto 0.4 % (0-2); Eosinophils Absolute Auto 0.4 X10*3/uL (0.0-0.4); Eosinophils Percent Auto 5.8 % (0-4); Hematocrit 42.1 % (42.0-52.0); Hemoglobin 13.3 g/dl (14.0-18.0); Imm Gran Abs Auto 0.01 X10*3/uL (0.00-0.03); Imm Gran Pct Auto 0.1 % (0.0-0.4); Lymphocytes Absolute Auto 1.4 X10*3/uL (1.2-4.9); Lymphocytes Percent Auto 19.4 % (20-40); Mean Corpuscular HGB Conc 31.6 g/dl (31.0-36.0); Mean Corpuscular Hemoglobin 28.4 pg (27.0-33.0); Mean Corpuscular Volume 89.8 fL (80.0-98.0); Mean Platelet Volume 9.6 fL (9.4-12.4); Monocytes Absolute Auto 0.6 X10*3/uL (0.1-1.2); Monocytes Percent Auto 7.8 % (2-11); Neutrophils Absolute Auto 4.7 x10*3/uL (2.0-8.3); Neutrophils Percent Auto 66.5 % (45-73); Platelet Count 393 X10*3/uL (160-400); Red Blood Count 4.69 X10*6/uL (4.60-5.80); Red Cell Distribution Width 13.3 % (11.0-16.0); White Blood Count 7.1 X10*3/uL (4.8-10.8)
[2023-02-11 16:20] LABS: Estimated Average Glucose 97 mg/dL
[2023-02-11 16:22] LABS: Amphetamine Screen Urine Not Detected (Not Detect); Barbiturates, Urine Not Detected (Not Detect); Benzodiazepines Screen Urine Not Detected (Not Detect); Cannabinoid Screen Urine POSITIVE (Not Detect); Cocaine Screen Urine Not Detected (Not Detect); Fentanyl, urine Not Detected (Not Detect); Opiate Screen Urine Not Detected (Not Detect); Phencyclidine Screen Urine Not Detected (Not Detect)
[2023-02-11 16:54] LABS: Alanine Aminotransferase 33 U/L (0-40); Albumin Level 4.3 g/dL (3.5-5.0); Alkaline Phosphatase 79 U/L (39-117); Anion Gap 12 (12-20); Aspartate Amino Transferase 36 U/L (5-37); Bilirubin Total 0.4 mg/dL (0.0-1.0); Blood Urea Nitrogen 16 mg/dL (9-16); Carbon Dioxide 28 mmol/L (22-29); Chloride 104 mmol/L (96-108); Cholesterol 184 mg/dL (<200); Estimated Glomerular Filt Rate > 60; Glucose Random 95 mg/dL (60-115); HDL Cholesterol 57 mg/dL (>40); LDL Cholesterol Calculated 118 mg/dL (<100); Potassium 4.4 mmol/L (3.3-5.1); Sodium 140 mmol/L (135-145); Total Protein 7.5 g/dL (6.5-8.0); Triglycerides 49 mg/dL (<150)
[2023-02-11 17:18] LABS: Free T4 (Free Thyroxine) 0.74 ng/dL (0.71-1.85); Thyroid Stimulating Hormone 0.73 uIU/mL (0.32-4.0)
== END 2023-02-11 14:33 | disposition home or self-care (01) ==
LOC: HO.HMGCLDS 14:32
PROVIDERS: PCP Nurse Practitioner Family; Visit Provider Psychiatry & Neurology Psychiatry
DX: Z13.89 Encounter for screening for other disorder (principal)
CPT/HCPCS: 80053; 80061; 80307; 83036; 84439; 84443; 85025

== ENCOUNTER 2023-04-09 19:54 | Emergency (ER) | payer OTHER, SELFPAY ==
--- NOTE | 2023-04-09 19:57 | ECG_ITS ---
Test Reason : CHEST PAIN Blood Pressure : / mmHG Vent. Rate : 073 BPM Atrial Rate : 073 BPM P-R Int : 152 ms QRS Dur : 094 ms QT Int : 352 ms P-R-T Axes : 061 072 033 degrees QTc Int : 387 ms Normal sinus rhythm RSR' or QR pattern in V1 suggests right ventricular conduction delay Possible Early repolarization consider pericarditis Abnormal ECG When compared with ECG of 21-DEC-2022 08:41, Heart rate has decreased ST more elevated in Anterior leads Referred By: Generic ED Physician Electronically Signed By:CHANG MEIER MD
[2023-04-09 20:32] VITALS: BP 113/63; PULSE 77; RESP 16; TEMP 37.3; O2SAT 96; BMI 21.0
--- NOTE | 2023-04-09 20:32 | ED_ITS ---
HPI - General Adult General Chief complaint: Neuro Symptoms/Deficit Stated complaint: body twitching Time Seen by Provider: 04/09/23 21:27 Source: patient Mode of arrival: ambulatory Limitations: no limitations History of Present Illness HPI narrative: Patient with history of substance abuse anxiety depression myoclonic seizure started on Keppra and carbamazepine which he did not like and stop taking comes here for muscle jerking injury last few days unable to sleep Related Data Home Medications Medication Instructions Recorded Confirmed omeprazole magnesium 20 mg 20 mg PO DAILY 07/20/22 08/17/22 tablet,delayed release (Prilosec OTC) Previous Rx's Medication Instructions Recorded levetiracetam 500 mg tablet 1,000 mg (2 x 500 mg) PO BID 30 07/20/22 days #120 tabs escitalopram oxalate 20 mg tablet 20 mg PO DAILY 90 days #90 tabs 11/05/22 (Lexapro) clonazepam 1 mg tablet (Klonopin) 1 mg PO BID PRN muscle spasm #30 04/09/23 tabs Allergies Allergy/AdvReac Type Severity Reaction Status Date / Time No Known Allergies Allergy Verified 04/09/23 20:32 Review of Systems 2 Review of Systems: Yes all other systems are reviewed and are negative PMFSH Past Medical History Medical History Visit for suture removal Fatigue Wheezing Closed fracture of 5th metacarpal Finger fracture, right Facial abscess Abscess Psychosis Polysubstance abuse Esophageal dilatation Motility disorder, esophageal Surgical History Hx of endoscopy Social History Social History Household Members: Family Housing: House Do you presently have visiting nurse or other home services: No Unable to assess alcohol history related to: Unknown Alcohol intake: never Patient Tobacco Use Status: Never used Tobacco e-Cigarette/Vaping Use: Never Used Second Hand Smoke Exposure: Yes Substance Use Type: Crack/Cocaine Advance Directives: No Advance Directives Information Provided: Yes service: No Current occupational status: employed Current occupation: rt hand /liquor store Sexual orientation: Don't Know Cognitive needs: No Hearing needs: No Vision needs: No Physical Exam ED Vital Signs: Vital Signs - 24 hr 04/09/23 20:32 04/09/23 21:31 04/09/23 22:13 Temperature 99.1 F 98.2 F Pulse Rate 77 88 75 Respiratory Rate 16 17 16 Blood Pressure 113/63 115/65 114/66 Pulse Oximetry 96 99 97 Oxygen Delivery Method Room Air Room Air BMI result Body Mass Index 21.0 Appearance: Alert. Oriented X3. No acute distress. ENT: Pharynx normal. Oral Mucosa moist Neck: Normal inspection. Neck supple. CVS: Normal heart rate and rhythm. Pulses normal. Respiratory: No respiratory distress. Equal air entry bilateral, Abdomen: Soft and nontender. Bowel sounds are present, no mass palpable, no CVA tenderness Skin: Skin warm and dry. Normal skin color. Normal skin turgor. Extremities: No lower extremity edema. No calf tenderness muscle twitching movement+ Neuro: Oriented X 3. No motor deficit. No sensory deficit.No cerebellar signs , cranial nerves II-XII intact Course Course Course Narrative: RME performed by America Acosta PA-C. Patient is a 28 year old assigned male at presenting to the emergency department feeling like his skin is constantly crawling and he is constantly twitching. Patient states that when he is distracted, he doesn't feel it. Labs ordered. Patient placed back in the waiting room pending room availability and results. Medications Administered Discontinued Medications Generic Name Dose Route Start Last Admin Trade Name Susan PRN Reason Stop Dose Admin Clonazepam 1 mg 04/09/23 22:02 04/09/23 22:13 Clonazepam 1 Mg Tablet PO 04/09/23 22:03 1 mg ONCE ONE Administration Medical Decision Making Medical Decision Making [facility] Narrative: Patient with myoclonic seizure like activities does not want Kera will start patient on Klonopin and advised to follow-up with neurologist patient denied any drug use lately Lab Data [facility] Lab Attestation statement: I reviewed the patient's lab results. 04/09/23 20:46 04/09/23 20:46 Labs: Lab Results 04/09/23 Range/Units 20:46 WBC 6.9 (4.8-10.8) X10*3/uL RBC 4.42 L (4.60-5.80) X10*6/uL Hgb 12.2 L (14.0-18.0) g/dl Hct 38.4 L (42.0-52.0) % MCV 86.9 (80.0-98.0) fL MCH 27.6 (27.0-33.0) pg MCHC 31.8 (31.0-36.0) g/dl RDW 12.3 (11.0-16.0) % Plt Count 303 (160-400) X10*3/uL MPV 9.7 (9.4-12.4) fL Immature Gran % (Auto) 0.3 (0.0-0.4) % Neut % (Auto) 53.8 (45-73) % Lymph % (Auto) 28.3 (20-40) % [place] % (Auto) 9.0 (2-11) % Eos % (Auto) 8.3 H (0-4) % Baso % (Auto) 0.3 (0-2) % Lymph # (Auto) 2.0 (1.2-4.9) X10*3/uL [place] # (Auto) 0.6 (0.1-1.2) X10*3/uL Eos # (Auto) 0.6 H (0.0-0.4) X10*3/uL Baso # (Auto) 0.0 (0.0-0.2) X10*3/uL Abs Immat Gran (auto) 0.02 (0.00-0.03) X10*3/uL Absolute Neuts (auto) 3.7 (2.0-8.3) x10*3/uL Absolute Nucleated RBC 0.000 (0.0-0.012) X10*3/uL Nucleated RBC % (auto) 0.0 (0.0-0.2) /100WBC Sodium 139 (135-145) mmol/L Potassium 3.9 (3.3-5.1) mmol/L Chloride 108 (96-108) mmol/L Carbon Dioxide 22 (22-29) mmol/L Anion Gap 13 (12-20) BUN 19 H (9-16) mg/dL Creatinine 0.99 (0.5-1.4) mg/dL Estim Creat Clear Calc 92.6 Estimated GFR > 60 Random Glucose 107 (60-115) mg/dL Calcium 9.0 (8.4-10.2) mg/dL Magnesium 2.1 (1.6-2.6) mg/dL Total Bilirubin 0.2 (0.0-1.0) mg/dL AST 21 (5-37) U/L ALT 19 (0-40) U/L Alkaline Phosphatase 77 (39-117) U/L Troponin I High Sens 3.4 (<3.5-35.0) ng/L Total Protein 7.1 (6.5-8.0) g/dL Albumin 4.1 (3.5-5.0) g/dL Discharge Plan Discharge Clinical Impression: Myoclonic jerking Patient Disposition: Home, Self-Care Instructions: Muscle Spasm (ED) Additional Instructions: Take Klonopin 1 tablet twice daily as needed Follow with your neurologist Prescriptions: New clonazepam [Klonopin] 1 mg tablet 1 mg PO BID PRN (Reason: muscle spasm) Qty: 30 0RF No Action escitalopram oxalate [Lexapro] 20 mg tablet 20 mg PO DAILY 90 Days Qty: 90 1RF omeprazole magnesium [Prilosec OTC] 20 mg tablet,delayed release (DR/EC) 20 mg PO DAILY levetiracetam 500 mg tablet 1,000 mg PO BID 30 Days Qty: 120 2RF
[2023-04-09 20:51] LABS: MANUAL DIFF FLAG NO
[2023-04-09 20:52] LABS: Basophils Percent Auto 0.3 % (0-2); Eosinophils Absolute Auto 0.6 X10*3/uL (0.0-0.4); Eosinophils Percent Auto 8.3 % (0-4); Hematocrit 38.4 % (42.0-52.0); Hemoglobin 12.2 g/dl (14.0-18.0); Imm Gran Abs Auto 0.02 X10*3/uL (0.00-0.03); Imm Gran Pct Auto 0.3 % (0.0-0.4); Lymphocytes Percent Auto 28.3 % (20-40); Mean Corpuscular HGB Conc 31.8 g/dl (31.0-36.0); Mean Corpuscular Hemoglobin 27.6 pg (27.0-33.0); Mean Corpuscular Volume 86.9 fL (80.0-98.0); Mean Platelet Volume 9.7 fL (9.4-12.4); Monocytes Absolute Auto 0.6 X10*3/uL (0.1-1.2); Neutrophils Absolute Auto 3.7 x10*3/uL (2.0-8.3); Neutrophils Percent Auto 53.8 % (45-73); Platelet Count 303 X10*3/uL (160-400); Red Blood Count 4.42 X10*6/uL (4.60-5.80); Red Cell Distribution Width 12.3 % (11.0-16.0); White Blood Count 6.9 X10*3/uL (4.8-10.8)
[2023-04-09 21:06] LABS: Alanine Aminotransferase 19 U/L (0-40); Albumin Level 4.1 g/dL (3.5-5.0); Alkaline Phosphatase 77 U/L (39-117); Anion Gap 13 (12-20); Aspartate Amino Transferase 21 U/L (5-37); Bilirubin Total 0.2 mg/dL (0.0-1.0); Blood Urea Nitrogen 19 mg/dL (9-16); Carbon Dioxide 22 mmol/L (22-29); Chloride 108 mmol/L (96-108); Creatinine Clr Calc Pharmacy 92.6; Estimated Glomerular Filt Rate > 60; Glucose Random 107 mg/dL (60-115); Magnesium 2.1 mg/dL (1.6-2.6); Potassium 3.9 mmol/L (3.3-5.1); Sodium 139 mmol/L (135-145); Total Protein 7.1 g/dL (6.5-8.0)
[2023-04-09 21:13] LABS: Troponin-I High Sensitivity 3.4 ng/L (<3.5-35.0)
[2023-04-09 21:31] VITALS: BP 115/65; PULSE 88; RESP 17; TEMP 36.8; O2SAT 99
[2023-04-09 22:13] VITALS: BP 114/66; PULSE 75; RESP 16; O2SAT 97
[2023-04-09] MEDS: clonazePAM 1 MG TABLET PO (22:13)
== END 2023-04-09 22:19 | disposition home or self-care (01) ==
PROVIDERS: Physician Assistant Medical; Emergency Provider Internal Medicine; PCP Nurse Practitioner Family
DX: G25.3 Myoclonus (principal); R07.89 Other chest pain; Z79.899 Other long term (current) drug therapy
CPT/HCPCS: 36415; 80053; 83735; 84484; 85025; 93005; 99283; 99284

== ENCOUNTER 2023-04-12 15:47 | Outpatient (AMB) | payer OTHER, SELFPAY ==
[2023-04-12 16:16] VITALS: BP 120/60; PULSE 98; TEMP 36.6; O2SAT 99; BMI 21.8
--- NOTE | 2023-04-12 16:16 | AM.OFFWIN_ITS ---
Intake Vital Signs 04/12/23 16:16 Height 5 ft 6 in Weight 135 lb BMI 21.8 BP 120/60 Blood Pressure Location Lt brachial Position Sitting Pulse 98 Pulse Source Pulse Oximeter Temp 97.9 F Temp Source Temporal Artery Scan Pulse Oximetry (%) 99 Oxygen Delivery Method Room Air Intake Visit Reasons: EP, body tremors Intake Note: pt is here today for body tremors 1x to 2x weeks Patient Tobacco Use Status: Never used Tobacco Allergies No Known Allergies Allergy (Verified 04/25/23 13:18) Medication List - Last Reconciled 04/25/23 by Jhoan Rivera MD clonazepam (Klonopin) 1 mg PO BID PRN escitalopram oxalate (Lexapro) 20 mg PO DAILY 90 days fluticasone propionate 50 mcg/actuation (Children's Flonase Allergy Relief) 1 spray intranasal BID omeprazole magnesium (Prilosec OTC) 20 mg PO DAILY HPI EP, body tremors HPI Details 28-year-old male presents to the office for a sick visit. patient complains of tremors. He wants a different medication for his seizures. He has seen the neurologist and does not like the medications that he has prescribed. Patient is accompanied by his mother. His mother feels he has nasal congestion and wants medications. [facility] Medical History Visit for suture removal Fatigue Wheezing Closed fracture of 5th metacarpal Finger fracture, right Facial abscess Abscess Psychosis Polysubstance abuse Esophageal dilatation Motility disorder, esophageal Surgical History Hx of endoscopy Social History Household Members: Family Housing: House Do you presently have visiting nurse or other home services: No Unable to assess alcohol history related to: Unknown Alcohol intake: never Patient Tobacco Use Status: Never used Tobacco e-Cigarette/Vaping Use: Never Used Second Hand Smoke Exposure: Yes Substance Use Type: Crack/Cocaine service: No Current occupational status: employed Current occupation: rt hand /liquor store Sexual orientation: Don't Know Cognitive needs: No Hearing needs: No Vision needs: No Physical Exam Vital Signs: Last Vital Signs Temp 97.9 F 04/12/23 16:16 Pulse 98 04/12/23 16:16 BP 120/60 04/12/23 16:16 Pulse Ox 99 04/12/23 16:16 Oxygen Delivery Method Room Air 04/12/23 16:16 BMI result Body Mass Index 21.8 Const General: cooperative and healthy appearing Nutritional Appearance: well nourished Orientation/consciousness: patient oriented x3 Limitations: no limitations HEENT Head: Yes normal to inspection Eyes General: appearance normal, both eyes and all related structures Neck Neck: Yes normal visual inspection Chest Chest palpation & inspection: normal palpation of entire chest wall Resp Effort & Inspection: normal respiratory effort Neuro General: patient oriented x3 Assessment & Plan Assessment & Plan (1) Anxiety with depression: Code(s): F41.8 - Other specified anxiety disorders Plan: Explained to the patient and his mother that patient is having symptoms and requests that are outside the purview of this practice. He should contact his primary care provider to get another neurologist opinion if he so chooses. In my opinion patient is having a lot of anxiety and underlying psychiatric issues that need to be addressed. His mother is asking questions which are totally unrelated. The patient does not feel he has any allergy issues, Medications: New fluticasone propionate 50 mcg/actuation (Children's Flonase Allergy Relief) administer into each nostril 1 spray intranasal BID 16 grams 0RF Coding Level of Care Code Est Pt Level 3 (17345) Diagnoses Anxiety with depression F41.8
== END 2023-04-12 17:09 | disposition home or self-care (01) ==
PROVIDERS: PCP Nurse Practitioner Family; Visit Provider Internal Medicine
DX: F41.8 Other specified anxiety disorders (principal)
CPT/HCPCS: 99213

== ENCOUNTER 2023-04-19 07:53 | Outpatient (AMB) | payer OTHER, SELFPAY ==
--- NOTE | 2023-04-19 07:09 | MHC.PC.OV ---
Intake Visit Reasons: discuss convulsions (Iphone [phone]) Allergies No Known Allergies Allergy (Verified 04/12/23 16:17) Medication List - Last Reconciled 04/19/23 by PATRICK Diana clonazepam (Klonopin) 1 mg PO BID PRN escitalopram oxalate (Lexapro) 20 mg PO DAILY 90 days fluticasone propionate 50 mcg/actuation (Children's Flonase Allergy Relief) 1 spray intranasal BID omeprazole magnesium (Prilosec OTC) 20 mg PO DAILY Tobacco use date assessed: 07/20/22 HPI discuss convulsions (Iphone [phone]) HPI Details Pt c/o muscle twitching/restless legs. He reports that he stopped taking keppra because he did not like it (was having seizures and swore it wasn't from drug abuse). He would like a different neurologist. Pt has been referred multiple times but has not heard anything, reports he might have missed a call. Will check on this. Pt is requesting something other than requip for restless leg. Will check iron studies first. Denies fever, chills, and dizziness. Pt denies having an further seizures in months. COUNTS INCLUDE 234 BEDS AT THE [facility] Medical History Visit for suture removal Fatigue Wheezing Closed fracture of 5th metacarpal Finger fracture, right Facial abscess Abscess Psychosis Polysubstance abuse Esophageal dilatation Motility disorder, esophageal Surgical History Hx of endoscopy Social History Household Members: Family Housing: House Do you presently have visiting nurse or other home services: No Unable to assess alcohol history related to: Unknown Alcohol intake: never Patient Tobacco Use Status: Never used Tobacco e-Cigarette/Vaping Use: Never Used Second Hand Smoke Exposure: Yes Substance Use Type: Crack/Cocaine service: No Current occupational status: employed Current occupation: rt hand /liquor store Sexual orientation: Don't Know Cognitive needs: No Hearing needs: No Vision needs: No Questionnaire Thrive Questionnaire Date Thrive assessed: 07/20/22 KLEBER-7 AMB Questionnaire KLEBER-7 Date KLEBER - 7 assessed: 07/20/22 Source: Developed by Drs. Tip Shukla, Sammie Barone, Javier Cuevas and colleagues, with an educational kizzy from [employer]. Review of Systems Const Reports as per HPI Physical exam (Primary Care) Tobacco/Smoking Status: Tobacco use Status Tobacco use date assessed 07/20/22 01/04/23 16:09 Patient Tobacco Use Status Never used Tobacco 04/12/23 16:19 e-Cigarette/Vaping Use Never Used 01/04/23 16:09 Thrive Assessment: Date of Thrive Assessment Date Thrive assessed 07/20/22 01/04/23 16:09 Const General: cooperative Orientation/consciousness: patient oriented x3 Neuro General: patient oriented x3 Psych Appearance: grossly normal Mental Status: mental status grossly normal Speech and movement: Clear speech present Affect: normal affect Attitude: cooperative Thought process: Normal thought process present Thought content: Normal thought content present Insight: Good insight present (Psych) Judgement: Good judgement present (Psych) Telehealth Telehealth Location of provider rendering services: practice address Location of patient: address on file Patient Identification confirmed using: Name, : Yes Telehealth method: video Patient verbally consented to treatment: Yes Patient verbally consented to billing insurance company: Yes Patient informed of any privacy concerns related to visit: Yes Minutes spent on Phone/Video with Pt.: 10 Assessment and Plan Assessment & Plan (1) Restless leg syndrome: Code(s): G25.81 - Restless legs syndrome (2) Polysubstance abuse: Code(s): F19.10 - Other psychoactive substance abuse, uncomplicated (3) Seizure: Code(s): R56.9 - Unspecified convulsions Plan The patient agreed to the use of a healthcare or medical for this encounter. Scribed for GIOVANY Reina-NOLAN by Cat [facility]more healthcare or medical, on 04/19/2023 at 07:10 EST. Orders: Orders IRON PROFILE Today .81 - Restless legs syndrome TSH reflex Free T4 Today G2 - Restless legs syndrome UA CC w/rflx Micro + Cult Today - Restless legs syndrome Drug Screen Urine Today F19.10 - Other psychoactive substance abuse, uncomplicated, - Restless legs syndrome Ferritin Today G25.81 - Restless legs syndrome Complete Blood Count Auto Diff Today G2.81 - Restless legs syndrome Comprehensive Met. Panel Today G2 - Restless legs syndrome Coding Level of Care Code Tele Est Pt Level 3 (17826) Diagnoses Restless leg syndrome G2.81 Polysubstance abuse F19.10 Seizure R56.9
== END 2023-04-19 10:02 | disposition home or self-care (01) ==
LOC: HO.HMGC 07:53
PROVIDERS: PCP Nurse Practitioner Family; Visit Provider Nurse Practitioner Family
DX: G25.81 Restless legs syndrome (principal); F19.10 Other psychoactive substance abuse, uncomplicated; R56.9 Unspecified convulsions
CPT/HCPCS: 99213

== ENCOUNTER 2023-05-10 13:04 | Emergency (ER) | payer OTHER, SELFPAY ==
[2023-05-10 13:44] VITALS: BP 116/75; PULSE 90; RESP 16; TEMP 36.7; O2SAT 98; BMI 20.5
--- NOTE | 2023-05-10 13:54 | ED.GENADULT ---
HPI - General Adult General Chief complaint: General Medical Stated complaint: seizure meds giving bad headaches Source: patient Mode of arrival: ambulatory Limitations: no limitations History of Present Illness HPI narrative: Patient is a 28 year old assigned male at with a history of seizures presenting to the emergency department today with brain fog and requesting to be restarted on depakote. Patient states that he was previously taking Depakote, had some side effects, and was switched to Keppra. Patient states that Keppra had worse side effects and now he'd like to be back on Depakote but he is still having some brain fog . Patient denies any dizziness, lightheadedness, abdominal pain, nausea, vomiting, fever, chills, blurry vision, double vision, loss of vision, chest pain, difficulty breathing, shortness of breath, back pain, night sweats, pain with urination, increased urinary frequency, increased urinary urgency, blood in his urine or stool, syncope or a near syncopal episode, recent trauma or falls, bowel incontinence, bladder incontinence, bowel retention, bladder retention, or any other complaints at this time. Relieving factors: none Exacerbating factors: none Associated symptoms: denies other symptoms Treatments prior to arrival: none Related Data Home Medications Medication Instructions Recorded Confirmed omeprazole magnesium 20 mg 20 mg PO DAILY 07/20/22 08/17/22 tablet,delayed release (Prilosec OTC) Previous Rx's Medication Instructions Recorded escitalopram oxalate 20 mg tablet 20 mg PO DAILY 90 days #90 tabs 11/05/22 (Lexapro) clonazepam 1 mg tablet (Klonopin) 1 mg PO BID PRN muscle spasm #30 04/09/23 tabs fluticasone propionate 50 1 spray intranasal BID #16 grams 04/12/23 mcg/actuation nasal spray,suspension (Children's Flonase Allergy Relief) Allergies Allergy/AdvReac Type Severity Reaction Status Date / Time No Known Allergies Allergy Verified 04/25/23 13:18 Review of Systems Constitutional: Constitutional: Reports no additional constitutional complaints, Denies chills, Denies fever(s) and Denies night sweats Eyes: Eyes: Reports no additional eye complaints, Denies blurry vision, Denies change in vision, Denies diplopia, Denies eye discharge, Denies loss of vision and Denies eye pain ENT: Denies dizziness Cardiovascular: Cardiovascular: Reports no additional cardiovascular complaints, Denies chest pain, Denies lightheadedness, Denies Loss of Consciousness and Denies dyspnea Respiratory: Respiratory: Reports no additional respiratory complaints and Denies dyspnea Gastrointestinal: Gastrointestinal: Reports no additional gastrointestinal complaints, Denies abdominal pain, Denies melena, Denies hematochezia, Denies change in bowel habits and Denies change in stool character Genitourinary: Genitourinary: Reports no additional male genitourinary complaints, Denies hematuria, Denies oliguria, Denies difficulty urinating, Denies dysuria, Denies urinary frequency, Denies urinary hesitancy, Denies urinary incontinence and Denies urinary urgency Musculoskeletal: Musculoskeletal: Reports no additional musculoskeletal complaints, Denies numbness and Denies tingling Neurologic: Denies dizziness, Denies loss of vision, Denies numbness and Denies tingling Comments: brain fog Psychiatric: Psychiatric: Reports no additional psychiatric complaints Endocrine: Endocrine: Reports no additional endocrine complaints Hematologic/Lymphatic: Hematologic/Lymphatic: Reports no additional hematologic/lymphatic complaints Allergic/Immunologic: Allergic/Immunologic: Reports no additional allergic/immunologic complaints [facility] Past Medical History Attestation statement: The following information was validated with the patient. Source: old records reviewed and nursing notes reviewed Medical History Visit for suture removal Fatigue Wheezing Closed fracture of 5th metacarpal Finger fracture, right Facial abscess Abscess Psychosis Polysubstance abuse Esophageal dilatation Motility disorder, esophageal Surgical History Hx of endoscopy Social History Household Members: Family Housing: House Do you presently have visiting nurse or other home services: No Unable to assess alcohol history related to: Unknown Alcohol intake: never Patient Tobacco Use Status: Never used Tobacco e-Cigarette/Vaping Use: Never Used Second Hand Smoke Exposure: Yes Substance Use Type: Crack/Cocaine Advance Directives: No service: No Current occupational status: employed Current occupation: [employer] hand /[employer] Sexual orientation: Don't Know Cognitive needs: No Hearing needs: No Vision needs: No Physical Exam ED Vital Signs: Vital Signs - 24 hr 05/10/23 13:44 Temperature 98.1 F Pulse Rate 90 Respiratory Rate 16 Blood Pressure 116/75 Pulse Oximetry 98 Oxygen Delivery Method Room Air BMI result Body Mass Index 20.5 Const General: cooperative, no acute distress, alert and awake Nutritional Appearance: well nourished Orientation/consciousness: patient oriented x3 Limitations: no limitations HENMT Head: Yes normal to inspection and Yes atraumatic Ears: hearing grossly normal bilaterally and external ears normal General nose exam: Normal external nose present, no nasal discharge noted and no epistaxis Face and sinus: Yes normal facial exam, No abrasion and No laceration Mouth: Normal oral and palatal mucosa present, no drooling and no muffled voice Eyes General: appearance normal, both eyes and all related structures Periorbital: periorbital findings normal Eyelids: Yes eyelids normal Conjunctivae: conjunctivae normal Pupils: Equal, round and reactive pupils present EOM: EOMs intact bilaterally Neck Neck: Yes normal visual inspection, Yes full ROM and Yes no lymphadenopathy Chest Chest palpation & inspection: normal inspection of the chest Resp Effort & Inspection: normal respiratory effort and able to speak in complete sentences GI Inspection: Yes normal to inspection Neuro General: patient oriented x3 and moves all extremities Cranial nerves: Yes Equal, round and reactive pupils present Cognition (Neuro): normal cognition Motor exam (neuro): 5/5 motor strength present throughout Sensory Exam: Normal double simultaneous stimulation for sensation Coordination: [id number] test normal Extrem General: Yes normal to inspection, Yes full ROM and Yes capillary refill normal Psych Appearance: grossly normal Mental Status: mental status grossly normal Affect: normal affect Attitude: cooperative Thought process: Normal thought process present Thought content: Normal thought content present Insight: Good insight present (Psych) Course Course Course Narrative: RME performed by America Acosta PA-C. Patient is a 28 year old assigned male at presenting to the emergency department with requests for depakote afte stopping his keppra. Labs ordered. Patient placed back in the waiting room pending room availability and results. Medical Decision Making Medical Decision Making MDM Narrative: Patient is a 28 year old assigned male at with a history of seizures presenting to the emergency department today with brain fog and requesting depakote. Patient's limited physical exam performed in triage was unremarkable. Patient's blood work was unremarkable. Patient left the department without completing treatment. Patient left the department before myself or any of the other emergency department clinicians could review / explain test results, physical exam findings, need or lack thereof for additional testing, treatment options, or a treatment plan. Differential Diagnosis Differential Diagnoses: The differential diagnosis associated with the presentation includes Seizure disorder Polysubstance abuse Medication non-compliance Admission/Observation Consideration of admission/observation: Escalation of care including admission/observation considered Patient would have been admitted to the hospital had his work up had any findings where hospital admission was appropriate, his clinical presentation warranted hospital admission, and he hadn't left the department. Lab Data MDM Lab Attestation statement: I reviewed the patient's lab results. My interpretation of these studies and their corresponding values is that they are grossly normal. 05/10/23 14:01 05/10/23 14:01 Labs: Lab Results 05/10/23 Range/Units 14:01 WBC 8.7 (4.8-10.8) X10*3/uL RBC 4.72 (4.60-5.80) X10*6/uL Hgb 12.7 L (14.0-18.0) g/dl Hct 40.5 L (42.0-52.0) % MCV 85.8 (80.0-98.0) fL MCH 26.9 L (27.0-33.0) pg MCHC 31.4 (31.0-36.0) g/dl RDW 12.9 (11.0-16.0) % Plt Count 320 (160-400) X10*3/uL MPV 9.8 (9.4-12.4) fL Immature Gran % (Auto) 0.2 (0.0-0.4) % Neut % (Auto) 60.5 (45-73) % Lymph % (Auto) 23.0 (20-40) % [place] % (Auto) 8.8 (2-11) % Eos % (Auto) 7.2 H (0-4) % Baso % (Auto) 0.3 (0-2) % Lymph # (Auto) 2.0 (1.2-4.9) X10*3/uL [place] # (Auto) 0.8 (0.1-1.2) X10*3/uL Eos # (Auto) 0.6 H (0.0-0.4) X10*3/uL Baso # (Auto) 0.0 (0.0-0.2) X10*3/uL Abs Immat Gran (auto) 0.02 (0.00-0.03) X10*3/uL Absolute Neuts (auto) 5.2 (2.0-8.3) x10*3/uL Absolute Nucleated RBC 0.000 (0.0-0.012) X10*3/uL Nucleated RBC % (auto) 0.0 (0.0-0.2) /100WBC Sodium 140 (135-145) mmol/L Potassium 4.4 (3.3-5.1) mmol/L Chloride 105 (96-108) mmol/L Carbon Dioxide 30 H (22-29) mmol/L Anion Gap 9 L (12-20) BUN 17 H (9-16) mg/dL Creatinine 1.11 (0.5-1.4) mg/dL Estim Creat Clear Calc 83.2 Estimated GFR > 60 Random Glucose 96 (60-115) mg/dL Calcium 9.0 (8.4-10.2) mg/dL Total Bilirubin 0.3 (0.0-1.0) mg/dL AST 21 (5-37) U/L ALT 22 (0-40) U/L Alkaline Phosphatase 85 (39-117) U/L Total Protein 7.4 (6.5-8.0) g/dL Albumin 4.3 (3.5-5.0) g/dL Discharge Plan Discharge Clinical Impression: Seizure disorder Patient Disposition: Left W/O Completing Treatment Prescriptions: No Action escitalopram oxalate [Lexapro] 20 mg tablet 20 mg PO DAILY 90 Days Qty: 90 1RF clonazepam [Klonopin] 1 mg tablet 1 mg PO BID PRN (Reason: muscle spasm) Qty: 30 0RF fluticasone propionate [Children's Flonase Allergy Rlf] 50 mcg/actuation spray,suspension 1 spray intranasal BID Qty: 16 0RF Rx Instructions: administer into each nostril omeprazole magnesium [Prilosec OTC] 20 mg tablet,delayed release (DR/EC) 20 mg PO DAILY Discharge Date/Time: 05/10/23 19:19
[2023-05-10 14:06] LABS: MANUAL DIFF FLAG NO
[2023-05-10 14:07] LABS: Basophils Percent Auto 0.3 % (0-2); Eosinophils Absolute Auto 0.6 X10*3/uL (0.0-0.4); Eosinophils Percent Auto 7.2 % (0-4); Hematocrit 40.5 % (42.0-52.0); Hemoglobin 12.7 g/dl (14.0-18.0); Imm Gran Abs Auto 0.02 X10*3/uL (0.00-0.03); Imm Gran Pct Auto 0.2 % (0.0-0.4); Mean Corpuscular HGB Conc 31.4 g/dl (31.0-36.0); Mean Corpuscular Hemoglobin 26.9 pg (27.0-33.0); Mean Corpuscular Volume 85.8 fL (80.0-98.0); Mean Platelet Volume 9.8 fL (9.4-12.4); Monocytes Absolute Auto 0.8 X10*3/uL (0.1-1.2); Monocytes Percent Auto 8.8 % (2-11); Neutrophils Absolute Auto 5.2 x10*3/uL (2.0-8.3); Neutrophils Percent Auto 60.5 % (45-73); Platelet Count 320 X10*3/uL (160-400); Red Blood Count 4.72 X10*6/uL (4.60-5.80); Red Cell Distribution Width 12.9 % (11.0-16.0); White Blood Count 8.7 X10*3/uL (4.8-10.8)
[2023-05-10 14:22] LABS: Alanine Aminotransferase 22 U/L (0-40); Albumin Level 4.3 g/dL (3.5-5.0); Alkaline Phosphatase 85 U/L (39-117); Anion Gap 9 (12-20); Aspartate Amino Transferase 21 U/L (5-37); Bilirubin Total 0.3 mg/dL (0.0-1.0); Blood Urea Nitrogen 17 mg/dL (9-16); Carbon Dioxide 30 mmol/L (22-29); Chloride 105 mmol/L (96-108); Creatinine Clr Calc Pharmacy 83.2; Estimated Glomerular Filt Rate > 60; Glucose Random 96 mg/dL (60-115); Potassium 4.4 mmol/L (3.3-5.1); Sodium 140 mmol/L (135-145); Total Protein 7.4 g/dL (6.5-8.0)
== END 2023-05-10 19:19 | disposition left against medical advice (07) ==
LOC: HO.ED 19:09
PROVIDERS: Physician Assistant Medical; Emergency Provider Emergency Medicine; PCP Nurse Practitioner Family
DX: G40.909 Epilepsy, unspecified, not intractable, without status epilepticus (principal); R51.9 Headache, unspecified
CPT/HCPCS: 36415; 80053; 85025; 99281; 99283

== ENCOUNTER 2023-05-12 06:01 | Emergency (ER) | payer OTHER, SELFPAY ==
[2023-05-12 06:32] VITALS: BP 119/61; PULSE 77; RESP 20; TEMP 36.8; O2SAT 99; BMI 20.4
--- NOTE | 2023-05-12 08:04 | PC.NURSE ---
Was traiged here at [facility] [place] this morning but admits to leaving due to long wait . Returned with same complaint. Has been taking various nedications for his seizure discorder with c/o +HI. Admits to not taking any seizure meds for 2 weeks. NAD. No seizure activity noted. Waiting for provider evaluation
[2023-05-12 10:02] LABS: MANUAL DIFF FLAG NO
[2023-05-12 10:04] LABS: Basophils Percent Auto 0.4 % (0-2); Eosinophils Absolute Auto 0.6 X10*3/uL (0.0-0.4); Eosinophils Percent Auto 5.2 % (0-4); Hematocrit 41.1 % (42.0-52.0); Hemoglobin 12.8 g/dl (14.0-18.0); Imm Gran Abs Auto 0.02 X10*3/uL (0.00-0.03); Imm Gran Pct Auto 0.2 % (0.0-0.4); Lymphocytes Absolute Auto 2.6 X10*3/uL (1.2-4.9); Lymphocytes Percent Auto 24.5 % (20-40); Mean Corpuscular HGB Conc 31.1 g/dl (31.0-36.0); Mean Corpuscular Hemoglobin 26.8 pg (27.0-33.0); Mean Platelet Volume 9.9 fL (9.4-12.4); Monocytes Absolute Auto 0.7 X10*3/uL (0.1-1.2); Monocytes Percent Auto 6.4 % (2-11); Neutrophils Absolute Auto 6.6 x10*3/uL (2.0-8.3); Neutrophils Percent Auto 63.3 % (45-73); Platelet Count 327 X10*3/uL (160-400); Red Blood Count 4.78 X10*6/uL (4.60-5.80); Red Cell Distribution Width 12.8 % (11.0-16.0); White Blood Count 10.5 X10*3/uL (4.8-10.8)
[2023-05-12 10:05] LABS: Appearance Urine Clear; Color Urine Yellow; Glucose Urine UA Negative (Negative); Leukocyte Esterase Urine Trace (Negative); Nitrite Urine Negative (Negative); Specific Gravity - Urine >= 1.030 (1.005-1.025); UMIC TRIGGER UACC YES; Urine Blood Negative (Negative); Urine Ketones 15 mg/dL (Negative); Urine Protein Trace mg/dL (Neg-Trace)
[2023-05-12 10:07] LABS: Bacteria Urine None Seen (None Seen); Hyaline Casts Urine 0-2 /LPF (0-2); RBC Urine 0-2 /HPF (0-2); Squamous Epithelial Cell Urine 0-2 /HPF (0-2); UACC Culture Trigger YES
[2023-05-12 10:12] LABS: Amphetamine Screen Urine Not Detected (Not Detect); Barbiturates, Urine Not Detected (Not Detect); Benzodiazepines Screen Urine POSITIVE (Not Detect); Cannabinoid Screen Urine POSITIVE (Not Detect); Cocaine Screen Urine POSITIVE (Not Detect); Fentanyl, urine POSITIVE (Not Detect); Opiate Screen Urine POSITIVE (Not Detect); Phencyclidine Screen Urine Not Detected (Not Detect)
[2023-05-12 10:19] LABS: Magnesium 1.9 mg/dL (1.6-2.6)
[2023-05-12 10:24] LABS: Anion Gap 14 (12-20); Blood Urea Nitrogen 18 mg/dL (9-16); Calcium 9.1 mg/dL (8.4-10.2); Carbamazepine Tegretol < 2.0 mcg/mL (5.0-12.0); Carbon Dioxide 26 mmol/L (22-29); Chloride 102 mmol/L (96-108); Creatinine Clr Calc Pharmacy 77.7; Estimated Glomerular Filt Rate > 60; Glucose Random 92 mg/dL (60-115); Potassium 3.5 mmol/L (3.3-5.1); Sodium 138 mmol/L (135-145)
--- NOTE | 2023-05-12 10:48 | ED.GENADULT ---
HPI - General Adult General Chief complaint: Seizure Stated complaint: seizures Time Seen by Provider: 05/12/23 09:26 Source: patient Mode of arrival: ambulatory Limitations: no limitations History of Present Illness HPI narrative: 28 yold male with pmh of Restless leg syndrome, seizure, and anxiety, depression, polysubstance abuse, presents to ED for continuous drinking of lower extremities due to restless leg syndrome and states having mild seizures for many months and does not believe it is being properly treated. Patient has been to multiple medical doctors as stated by patient. Patient states he stopped taking Keppra, and carbamezepine makes him feel suicidal/homicidal. Patient denies any facial droop, slurred speech, dizziness, headache, chest pain, or shortness of breath. Patient denies inability to walk. Patient denies any recent trauma. Related Data Home Medications Medication Instructions Recorded Confirmed omeprazole magnesium 20 mg 20 mg PO DAILY 07/20/22 08/17/22 tablet,delayed release (Prilosec OTC) Previous Rx's Medication Instructions Recorded escitalopram oxalate 20 mg tablet 20 mg PO DAILY 90 days #90 tabs 11/05/22 (Lexapro) clonazepam 1 mg tablet (Klonopin) 1 mg PO BID PRN muscle spasm #30 04/09/23 tabs fluticasone propionate 50 1 spray intranasal BID #16 grams 04/12/23 mcg/actuation nasal spray,suspension (Children's Flonase Allergy Relief) divalproex 125 mg tablet,delayed 125 mg PO TID 14 days #42 tabs 05/12/23 release (Depakote) nitrofurantoin 100 mg PO Q12H 7 days #14 caps 05/12/23 monohydrate/macrocrystals 100 mg capsule (Macrobid) Allergies Allergy/AdvReac Type Severity Reaction Status Date / Time No Known Allergies Allergy Verified 04/25/23 13:18 Review of Systems Review of Systems: drinking of lower extremity even while sleeping. Miles seizures for many years Yes all other systems are reviewed and are negative [facility] Past Medical History Medical History Visit for suture removal Fatigue Wheezing Closed fracture of 5th metacarpal Finger fracture, right Facial abscess Abscess Psychosis Polysubstance abuse Esophageal dilatation Motility disorder, esophageal Surgical History Hx of endoscopy Social History Household Members: Family Housing: House Do you presently have visiting nurse or other home services: No Unable to assess alcohol history related to: Unknown Alcohol intake: never Patient Tobacco Use Status: Never used Tobacco e-Cigarette/Vaping Use: Never Used Second Hand Smoke Exposure: Yes Substance Use Type: Crack/Cocaine Advance Directives: No Advance Directives Information Provided: No service: No Current occupational status: employed Current occupation: rt [employer] Sexual orientation: Don't Know Cognitive needs: No Hearing needs: No Vision needs: No Physical Exam ED Vital Signs: Vital Signs - 24 hr 05/12/23 06:32 05/12/23 11:20 Temperature 98.2 F 97.6 F Pulse Rate 77 77 Respiratory Rate 20 18 Blood Pressure 119/61 125/81 Pulse Oximetry 99 97 Oxygen Delivery Method Room Air Room Air BMI result Body Mass Index 20.4 Const General: cooperative, healthy appearing, comfortable, no acute distress, well developed, alert and awake Orientation/consciousness: oriented to person, oriented to place, oriented to time and patient oriented x3 HENMT Head: Yes normal to inspection, Yes No palpable skull fracture present, Yes normocephalic and Yes atraumatic Eyes General: appearance normal, both eyes and all related structures Neck Neck: Yes normal visual inspection, Yes full ROM, Yes no lymphadenopathy, Yes no meningeal signs, Yes trachea midline, Yes supple, No anterior neck swelling and No tender Chest Chest palpation & inspection: normal inspection of the chest and normal palpation of entire chest wall Resp Effort & Inspection: normal respiratory effort and able to speak in complete sentences Auscultation: clear to auscultation bilaterally Cardio Jugular venous distension: no JVD Heart sounds: S1 normal heart sound present and S2 normal heart sound present GI Inspection: Yes normal to inspection and No abdominal wall ecchymosis Palpation (GI): Soft to palpation, not firm, nontender, no guarding and not rigid General: Yes no CVA tenderness Back/Spine/Pelvis Back: no CVA tenderness Skin General skin exam: no rashes or lesions noted, elasticity normal and turgor normal Neuro General: oriented to person, oriented to place, oriented to time, patient oriented x3, gait normal, tone normal, moves all extremities, Normal light touch and pain sensation, no meningeal signs, no focal motor deficits, CN's II-XI intact bilaterally and normal sensation to monofilament Extrem General: Yes normal to inspection and Yes full ROM Psych Appearance: grossly normal, well kempt and not disheveled Medical Decision Making Medical Decision Making MDM Narrative: 28-year-old male history of seizure anxiety, depression, restless leg syndrome, comes in for continuous restless leg syndrome lower extremities and states seizures for many years. Patient presently alert oriented x3 and was seen here yesterday walked out came back today and was not at tonight have any witnessed tonic clonic seizures. Patient well-appearing. Patient been to multiple medical doctors for re-evaluation he states he has also calls Doctors from other countries for his predicament. Patient stopped takin his keppra and carbapezepine. Patient was seen by his neurologist recently who refused to give him depakote. Patient requesting to go back on valproic acid which he states works only side effect was nauseous so he stopped. 11:29am; patient labs are normal and baseline. Patient carbamazepine is low due to patient admitted to not taking medication for months. Carbamazepine level was ordered before I spoke to patient. Patient's home med list review and I do not see Depakote/valproic acid prescription. Patient informed to continue taking clonazepam he was prescribed from prior visit and told to recall his neurologist. patient's urine shows posbile UTI. Patient denies any abdominal pain, or symptoms. Patient informed to follow-up with PCP. Not suspecting kidney stones. Patient's states not sexually active. 11:35pm; Case was discussed with Dr. Ochoa who is covering neurologist. He states is not in the office. Dr. Ochoa was informed of patient's history and physical exam. He states Dr. Obrien would not be in the clinic until May and in his note Dr. Koch did not say anything prescribing Depakote. Dr. ochoa Does not see depaokte on patient's med list. he states Dr. Meng would not be in the office until May. He states as the ED provider patient came be prescribed any seizure medicine by me and he states patient should follow-up in May. He did not give any recommendations for seizure meds when asked. Patient states he cannot take Lamictal, carbamazepine, Keppra, Dilantin, or benadryl. He states it makes him feel bad. Due to patient not able to see his neurologist possibly to late May patient was only given 2 weeks of low dose of Depakote and told to return to the ED for any concerning symptoms. Although discharged papers states patient can take benadryl for to sleep, but patient states it makes his restleg syndrome worse. patient informed to not take benadryl. No need for head CT scan. No neuro deficits. Patient has not any seixure in the ED. Differential Diagnosis Differential Diagnoses: The differential diagnosis associated with the presentation includes ( Anxiety, depression, restless leg syndrome, seizure,) Admission/Observation Consideration of admission/observation: Escalation of care including admission/observation considered Consult Healthcare Provider Management of the patient was discussed with: Testing Tech (Neurologist: Dr. Ochoa) Lab Data 05/12/23 09:56 05/12/23 09:56 Labs: Lab Results 05/12/23 Range/Units 09:56 WBC 10.5 (4.8-10.8) X10*3/uL RBC 4.78 (4.60-5.80) X10*6/uL Hgb 12.8 L (14.0-18.0) g/dl Hct 41.1 L (42.0-52.0) % MCV 86.0 (80.0-98.0) fL MCH 26.8 L (27.0-33.0) pg MCHC 31.1 (31.0-36.0) g/dl RDW 12.8 (11.0-16.0) % Plt Count 327 (160-400) X10*3/uL MPV 9.9 (9.4-12.4) fL Immature Gran % (Auto) 0.2 (0.0-0.4) % Neut % (Auto) 63.3 (45-73) % Lymph % (Auto) 24.5 (20-40) % [place] % (Auto) 6.4 (2-11) % Eos % (Auto) 5.2 H (0-4) % Baso % (Auto) 0.4 (0-2) % Lymph # (Auto) 2.6 (1.2-4.9) X10*3/uL [place] # (Auto) 0.7 (0.1-1.2) X10*3/uL Eos # (Auto) 0.6 H (0.0-0.4) X10*3/uL Baso # (Auto) 0.0 (0.0-0.2) X10*3/uL Abs Immat Gran (auto) 0.02 (0.00-0.03) X10*3/uL Absolute Neuts (auto) 6.6 (2.0-8.3) x10*3/uL Absolute Nucleated RBC 0.000 (0.0-0.012) X10*3/uL Nucleated RBC % (auto) 0.0 (0.0-0.2) /100WBC Sodium 138 (135-145) mmol/L Potassium 3.5 D (3.3-5.1) mmol/L Chloride 102 (96-108) mmol/L Carbon Dioxide 26 (22-29) mmol/L Anion Gap 14 (12-20) BUN 18 H (9-16) mg/dL Creatinine 1.18 (0.5-1.4) mg/dL Estim Creat Clear Calc 77.7 Estimated GFR > 60 Random Glucose 92 (60-115) mg/dL Calcium 9.1 (8.4-10.2) mg/dL Magnesium 1.9 (1.6-2.6) mg/dL Urine Color Yellow Urine Appearance Clear Urine pH 6.0 (5.0-9.0) Ur Specific [place] >= 1.030 H (1.005-1.025) Urine Protein Trace (Neg-Trace) mg/dL Urine Glucose (UA) Negative (Negative) mg/dL Urine Ketones 15 (Negative) mg/dL Urine Blood Negative (Negative) Urine Nitrite Negative (Negative) Ur Leukocyte Esterase Trace H (Negative) Urine RBC 0-2 (0-2) /HPF Urine WBC 6-10 H (0-5) /HPF Ur Squamous Epith Cells 0-2 (0-2) /HPF Urine Bacteria None Seen (None Seen) Hyaline Casts 0-2 (0-2) /LPF Urine Opiates Screen POSITIVE H (Not Detect) Urine Fentanyl Screen POSITIVE H (Not Detect) Ur Barbiturates Screen Not Detected (Not Detect) Carbamazepine < 2.0 L* (5.0-12.0) mcg/mL Ur Phencyclidine Scrn Not Detected (Not Detect) Ur Amphetamines Screen Not Detected (Not Detect) U Benzodiazepines Scrn POSITIVE H (Not Detect) Urine Cocaine Screen POSITIVE H (Not Detect) U Marijuana (THC) Screen POSITIVE H (Not Detect) External Record Review External record reviewed: Other ( Prior to ED) Prescription Management I considered prescription management with: Antibiotic Discharge Plan Discharge Clinical Impression: Restless leg syndrome, Seizure Patient Disposition: Home, Self-Care Instructions: Urinary Tract Infection in Men (ED), Recurrent Seizures in Adults (ED), Restless Legs Syndrome (ED) Additional Instructions: Return to the ED immediatley for any seizures, dizziness, chest pain, shortness of breath, slurred speech, headache, tremors, abdominal pain, vomitting, diarrhea, and any other concerning symptoms. Please call neurologist Dr. Rachel davalos for follow-up. also follow-up with primary care provider. you will be started on low-dose Depakote. [id number] Benadryl can be taken at night to sleep to help with restless leg syndrome. Prescriptions: New divalproex [Depakote] 125 mg tablet,delayed release (DR/EC) 125 mg PO TID 14 Days Qty: 42 0RF nitrofurantoin monohyd/m-cryst [Macrobid] 100 mg capsule 100 mg PO Q12H 7 Days Qty: 14 0RF Rx Instructions: must administer with a meal/food No Action escitalopram oxalate [Lexapro] 20 mg tablet 20 mg PO DAILY 90 Days Qty: 90 1RF clonazepam [Klonopin] 1 mg tablet 1 mg PO BID PRN (Reason: muscle spasm) Qty: 30 0RF fluticasone propionate [Children's Flonase Allergy Rlf] 50 mcg/actuation spray,suspension 1 spray intranasal BID Qty: 16 0RF Rx Instructions: administer into each nostril omeprazole magnesium [Prilosec OTC] 20 mg tablet,delayed release (DR/EC) 20 mg PO DAILY Referrals: Gopal Meng MD [Physician] - ( Seizure restless leg syndrome) Interventions: ED Discharge Assessment Last Done: 05/12/23 11:58 Discharge Date/Time: 05/12/23 11:58 Print Language: Faroese
[2023-05-12 11:20] VITALS: BP 125/81; PULSE 77; RESP 18; TEMP 36.4; O2SAT 97
== END 2023-05-12 11:58 | disposition home or self-care (01) ==
PROVIDERS: Physician Assistant; Emergency Provider Emergency Medicine; PCP Nurse Practitioner Family
DX: R56.9 Unspecified convulsions (principal); G25.81 Restless legs syndrome; F19.10 Other psychoactive substance abuse, uncomplicated; F41.8 Other specified anxiety disorders; Z79.899 Other long term (current) drug therapy
CPT/HCPCS: 36415; 80048; 80156; 80307; 81001; 83735; 85025; 87086; 99283

== ENCOUNTER 2023-11-30 13:36 | Outpatient (AMB) | payer OTHER, SELFPAY ==
--- NOTE | 2023-11-30 13:41 | MHC.PC.OV ---
Vital Signs 11/30/23 13:44 Height 5 ft 7 in Weight 137 lb BMI 21.5 BP 124/70 Blood Pressure Location Rt brachial Position Sitting Pulse 72 Pulse Source Pulse Oximeter Pulse Oximetry (%) 98 Oxygen Delivery Method Room Air Intake Visit Reasons: sleep issues, snoring Intake Note: Patient here for discuss sleep issues. Allergies No Known Allergies Allergy (Verified 11/30/23 13:44) Medication List - Last Reconciled 11/30/23 by PATRICK Diana divalproex 250 mg PO BID 30 days fluticasone propionate 50 mcg/actuation (Children's Flonase Allergy Relief) 1 spray intranasal BID paroxetine HCl (Paxil) 20 mg PO DAILY pramipexole 0.125 mg PO BEDTIME Tobacco use date assessed: 11/30/23 Dental Screening Dental Screen Date: 11/30/23 Did you have a dental visit in the last 12 months?: No Did you have a dental problem in the last 6 months where you did not have access to dental care?: No Was dental information given to patient?: Patient has dentist HPI sleep issues, snoring HPI Details restless legs: was on requip, which helped, but then the dose had to go up, which made him sick. I will try him on pramipexole (low dose). WIll recheck labs. pt is waiting to see his Neurologist for depakote, 250mg bid. Will send this, check a depakote level. Denies fever, chills, and dizziness. [facility] Medical History Visit for suture removal Fatigue Wheezing Closed fracture of 5th metacarpal Finger fracture, right Facial abscess Abscess Psychosis Polysubstance abuse Esophageal dilatation Motility disorder, esophageal Surgical History Hx of endoscopy Social History Household Members: Family Housing: House Do you presently have visiting nurse or other home services: No Unable to assess alcohol history related to: Unknown Alcohol intake: never Patient Tobacco Use Status: Never used Tobacco e-Cigarette/Vaping Use: Never Used Second Hand Smoke Exposure: Yes Substance Use Type: Crack/Cocaine service: No Current occupational status: employed Current occupation: rt hand /liquor store Sexual orientation: Don't Know Cognitive needs: No Hearing needs: No Vision needs: No Questionnaire PHQ-9 Over the last 2 weeks, how often have you been bothered by any of the following problems? 56556 - PHQ-9 Billing: Patient declined-do not bill Source: Developed by Drs. Tip Shukla, Sammie Barone, Javier Cuevas and colleagues, with an educational kizzy from [employer]. Thrive Questionnaire Date Thrive assessed: 07/20/22 AUDIT C Alcohol Use Questionnaire (AUDIT-C) 1. How often do you have a drink containing alcohol?: Never 3. How often do you have six or more drinks on one occasion?: Never Total Score: 0 Score Reviewed/Action Taken: No KLEBER-7 AMB Questionnaire KLEBER-7 Date KLEBER - 7 assessed: 07/20/22 Source: Developed by Drs. Tip Shukla, Sammie Barone, Javier Cuevas and colleagues, with an educational kizzy from [employer]. KLEBER-7 Assessment Billing KLEBER-7 Assessment Tool: pt declined-do not bill Review of Systems Const Reports as per HPI Physical exam (Primary Care) Vital Signs: Last Vital Signs Pulse 72 11/30/23 13:44 BP 124/70 11/30/23 13:44 Pulse Ox 98 11/30/23 13:44 Oxygen Delivery Method Room Air 11/30/23 13:44 BMI result Body Mass Index 21.5 Tobacco/Smoking Status: Tobacco use Status Tobacco use date assessed 11/30/23 11/30/23 13:47 Patient Tobacco Use Status Never used Tobacco 11/30/23 13:41 e-Cigarette/Vaping Use Never Used 11/30/23 13:41 Thrive Assessment: Date of Thrive Assessment Date Thrive assessed 07/20/22 11/30/23 13:41 Const General: cooperative Orientation/consciousness: patient oriented x3 Resp Effort & Inspection: normal respiratory effort Auscultation: clear to auscultation bilaterally Cardio Rate: regular rate Rhythm: regular rhythm Heart sounds: S1 normal heart sound present and S2 normal heart sound present Neuro General: patient oriented x3 Psych Appearance: grossly normal Mental Status: mental status grossly normal Speech and movement: Normal speech and movement present Affect: normal affect Attitude: cooperative Thought process: Normal thought process present Thought content: Normal thought content present Insight: Good insight present (Psych) Judgement: Good judgement present (Psych) Assessment and Plan Assessment & Plan (1) Restless leg syndrome: Code(s): G25.81 - Restless legs syndrome Plan: starting medication (2) Seizure: Code(s): R56.9 - Unspecified convulsions Plan: continue depakote, level ordered, pt to follow up with neurology Plan The patient agreed to the use of a manager of medical for this encounter. Scribed for Dhaval Blake, GIOVANY-BC by Cat Whitmore manager of medical, on 11/30/2023 at 13:50 EST. Orders: Orders Comprehensive [place]. Panel Fast Today G25.81 - Restless legs syndrome TSH reflex Free T4 Today G25.81 - Restless legs syndrome UA CC w/rflx Micro + Cult Today G25.81 - Restless legs syndrome Ferritin Today G25.81 - Restless legs syndrome IRON PROFILE Today G25.81 - Restless legs syndrome Complete Blood Count Auto Diff Today G25.81 - Restless legs syndrome Lipid Panel Today G25.81 - Restless legs syndrome Valproate Today R56.9 - Unspecified convulsions Medications: New pramipexole 0.125 mg PO BEDTIME 30 tabs 1RF Changed From divalproex (Depakote) 125 mg PO TID 14 days 42 tabs 0RF To divalproex 250 mg PO BID 30 days 60 tabs 0RF Coding Level of Care Code Est Pt Level 3 (30097) Diagnoses Restless leg syndrome G25.81 Seizure R56.9
[2023-11-30 13:44] VITALS: BP 124/70; PULSE 72; O2SAT 98; BMI 21.5
== END 2023-11-30 14:16 | disposition home or self-care (01) ==
PROVIDERS: PCP Nurse Practitioner Family; Visit Provider Nurse Practitioner Family
DX: G25.81 Restless legs syndrome (principal); R56.9 Unspecified convulsions
CPT/HCPCS: 99213

== ENCOUNTER → 2025-01-15 22:32 | Outpatient (BNV) | payer OTHER, SELFPAY | PROVIDERS: Visit Provider Radiology Diagnostic Radiology | DX: M79.644 Pain in right finger(s) (principal) | CPT/HCPCS: 73140 ==

== ENCOUNTER 2025-01-15 22:58 | Emergency (ER) | payer OTHER, SELFPAY ==
--- NOTE | ~2025-01-15 | XR_ITS ---
CLINICAL HISTORY: right finger dislocation 3 view right 1st digit Comparison: None Findings: Bones intact. No dislocations. No significant loss of joint space or osteophytes. No erosions. No radiopaque foreign body. IMPRESSION: 1. No acute findings This document has been electronically signed by: Basil Villalobos MD on 01/16/2025 00:19:15
[2025-01-15 23:16] VITALS: BP 116/59; PULSE 94; RESP 20; TEMP 36.8; O2SAT 96; BMI 21.8
--- OUTSIDE RECORDS SUMMARY | 2025-01-16 03:47 | XMS_ITS | Clinical Summary ---
Author Organization [facility] Address [address] [place] [address] Phone Care Team Providers Care Director Of Patient Financial Services Name Role Phone Dhaval Blake RAW M[employer] OPERATOR Primary Care Provider + Social History Tobacco Use Types Packs/Day Years Used Date Smoking Tobacco: Never Assessed Education Answer Date Recorded Are you interested in more education? Not on lorin e 06/01/2023 Are you concerned about learning? Not on file 06/01/2023 No 06/01/2023 No 06/01/2023 Digital Access Answer Date Recorded No 06/01/2023 No 06/01/2023 Reliable internet access at home? Not on file 06/01/2023 Device with a working camera? Not on file Sex and Gender Information Value Date Recorded Sex Assigned at Not on file Legal Sex Male 11:03 AM EDT Gender Identity Not on file Sexual Orientation Not on file Plan of Treatment Health Maintenance Due Date Last Done Comments Adult Td,Tdap Booster 1995 DEPRESSION SCREENING 2007 SMOKING Hx and SMOKELESS TOB ACCO SCREENING 01/07/2008 HEPATITIS C SCREENING 2013 HIV ONE-TIME SCREENING (18-6 5 YEARS) 2013 COVID-19 VACCINE ( - 2023-2 5 season) 2024 HEPATITIS A VACCINES Aged Out No long er eligible based on patient's age to complete this topic HIB VACCINES Aged Out No longer eligi ble based on patient's age to complete this topic MENINGOCOCCAL VACCINES (ACWY) Aged Out No longer eligible based on patient's age to complete this topic MENINGOCOCCAL VACCINES (B) Aged Out N o longer eligible based on patient's age to complete this topic PNEUMOCOCCAL VACCINES (0-49 years) Aged Out No longer eligible based on patient's age to complete this topic Medical Devices Not on file Care Teams Director Of Patient Financial Services Relationship Specialty Start Date End Date Dhaval Blake NP [address] [place] [address] [email or web address] PCP - General Nurse Practitioner 06/01/23 Additional Source Comments The information contained in this document represents components of the legal health record. It is not the complete legal health record.[facility]
--- OUTSIDE RECORDS SUMMARY | 2025-01-16 03:47 | XMS_ITS | Clinical Summary ---
Author Organization [facility] Address [address] [place] [address] Phone Care Team Providers Care Res Habilitation Assistant Name Role Phone Sg Krishnan MD Primary Care Provider [phone] Sg Krishnan MD Unavailable [phone] Sg Krishnan MD Unavailable [phone] Social History Tobacco Use Types Packs/Day Years Used Date Smoking Tobacco: Never Assessed Sex and Gender Information Value Date Recorded Sex Assigned at Not on file Legal Sex Male 9:30 PM EDT Gender Identity Not on file Sexual Orientation Not on file Plan of Treatment Not on file Care Teams Res Habilitation Assistant Relationship Specialty Start Date End Date Sg Krishnan MD [address] [place] [address] PCP - General 12/17/11 Sg Krishnan MD [address] [place] [address] PCP - Clinical PCP 12/17/11 Sg Krishnan MD [address] [place] [address] PCP - Insurance PCP 12/17/11
== END 2025-01-16 03:52 | disposition left against medical advice (07) ==
PROVIDERS: Emergency Provider Emergency Medicine
DX: S69.91XA Unspecified injury of right wrist, hand and finger(s), initial encounter (principal); W50.0XXA Accidental hit or strike by another person, initial encounter; Y93.71 Activity, boxing; Y92.39 Other specified sports and athletic area as the place of occurrence of the external cause; Y99.8 Other external cause status; Z53.21 Procedure and treatment not carried out due to patient leaving prior to being seen by health care provider
CPT/HCPCS: 73140; 99281